=== PATIENT | female | born 1955 | race Caucasian/White ===

== ENCOUNTER 2020-11-16 20:51 | Emergency (ER) | payer MEDICARE, SELFPAY ==
[2020-11-16 20:53] VITALS: BP 182/87; PULSE 66; RESP 16; TEMP 36.3; O2SAT 99
[2020-11-16 21:32] VITALS: BP 184/81; PULSE 58; PULSE 64; RESP 15; O2SAT 100
--- NOTE | 2020-11-16 21:38 | ECG_ITS ---
Measurements Intervals [place] Rate: 61 P: 40 IN: 173 QRS: -5 QRSD: 105 T: 21 QT: 425 QTc: 429 Interpretive Statements SINUS RHYTHM DELAYED PRECORDIAL R/S TRANSITION BASELINE ARTIFACT- I, II, III, AVR, AVF BORDERLINE ECG Electronically Signed On 11-17-2020 7:08:29 ICT BUSINESS DEVELOPMENT MANAGER by Preet Goldman D.O.
[2020-11-16 21:53] LABS: Basophils Percent Auto 0.2 % (0.2-1.2); Eosinophils Absolute Auto 0.2 K/mm3 (0-0.3); Eosinophils Percent Auto 1.5 % (0-4.4); Hematocrit 40.2 % (37.0-47.0); Hemoglobin 13.8 g/dL (12.0-15.0); Immature Granulocyte Absolute 0.03 K/mm3 (0.00-0.031); Immature Granulocyte Percent A 0.3 % (0-0.5); Lymphocytes Absolute Auto 4.91 K/mm3 (0.9-3.2); Lymphocytes Percent Auto 47.3 % (18.3-44.2); Mean Corpuscular HGB Conc 34.3 g/dl (32-36); Mean Corpuscular Hemoglobin 32.1 pg (26-34); Mean Corpuscular Volume 93.5 fl (80-100); Mean Platelet Volume 9.3 fl (7.4-10.4); Monocytes Absolute Auto 0.6 K/mm3 (0.1-0.6); Neutrophils Absolute Auto 4.7 K/mm3 (1.3-6.7); Neutrophils Percent Auto 44.7 % (45.5-73.1); Platelet Count Result 222 k/mm3 (150-375); Red Cell Distribution Width 12.9 % (11.5-14.5); White Blood Count 10.4 K/mm3 (4.5-10.0)
--- NOTE | 2020-11-16 21:57 | ED.ARRPALP ---
HPI - Arrhythmia/Palpitations General Chief Complaint: Arrhythmia/Palpitations Stated Complaint: chest pain, dizzy Time Seen by Provider: 11/16/20 21:09 Source: patient Mode of arrival: ambulatory Limitations: no limitations History of Present Illness HPI narrative: A 65-year-old lady comes into the emergency department with complaints of an abnormal sensation. Patient states that she has been feeling unwell for quite some time. She notes that she went and saw her primary care doctor about this. She notes that she is dealing with some anxiety and depression. Patient was recently started on Prozac. She notes that earlier tonight she got the sensation of heaviness in her bilateral arms with tingling. She denies any numbness. Does note that it is bilateral. She denies any sensation in her legs. Patient noted that she was simply sitting still waiting at home and not thinking about anything. Related Data Home Medications Medication Instructions Recorded Confirmed atorvastatin 11/16/20 fluoxetine mg 11/16/20 propranolol PO 11/16/20 sumatriptan succinate mg PO 11/16/20 11/16/20 Allergies Allergy/AdvReac Type Severity Reaction Status Date / Time No Known Allergies Allergy Unknown Verified 11/16/20 20:57 Review of Systems Review of Systems: Narrative: CONSTITUTIONAL: Denies fever, chills, or sweats. EYES: Denies visual changes, redness, or discharge. ENT: Denies rhinorrhea, congestion, sore throat, or otalgia. CARDIOVASCULAR: Denies chest pain, palpitations, or edema. RESPIRATORY: Denies cough or dyspnea. GASTROINTESTINAL: Denies abdominal pain, nausea, vomiting, or diarrhea. GENITOURINARY: Denies dysuria or hematuria. SKIN: Denies rash or itching. MUSCULOSKELETAL: Denies back pain, joint pain, or myalgia. NEUROLOGIC: Denies headache, numbness, dizziness, or weakness. PSYCHIATRIC: Denies anxiety or depression. [facility] Social History Social History Gender identity (if verbalized by the patient): Female Exam Narrative: Exam Narrative: GENERAL: Well-appearing, well-nourished, and in no acute distress. HEAD: Normocephalic, atraumatic. EYES: PERRLA and EOMI. ENT: Nares clear, no rhinorrhea or epistaxis. Mucous membranes moist. Oropharynx without tonsillar hypertrophy exudate or other lesions. Bilateral TMs pearly woods nonbulging NECK: Supple. No adenopathy or masses. No carotid bruits or JVD CHEST: Clear to auscultation. No respiratory distress. No wheezes rales or rhonchi HEART: Regular rate and rhythm. No murmur heard. Normal peripheral pulses. ABDOMEN: Soft, nontender, nondistended, normal active bowel sounds. EXTREMITIES: Normal range of motion. No edema. SKIN: Warm, dry, no rash. NEURO: No focal deficits. Alert and oriented x3. PSYCH: Normal mood and affect. Course Reevaluation(s) Reevaluation #1: Patient had the sensation while here in the emergency department. After further history and evaluating her I do feel like she is may be having an anxiety attack. Patient did have a normal neuro exam when these sensations were happening. She will have her anxiety addressed and will be given Ativan for this. Time: 22:25 Vital Signs Vital signs: Vital Signs Temperature 36.3 C L 11/16/20 20:53 Pulse Rate 66 11/16/20 20:53 Respiratory Rate 16 11/16/20 20:53 Blood Pressure 182/87 H 11/16/20 20:53 Pulse Oximetry 99 11/16/20 20:53 Temperature 36.3 C L 11/16/20 20:53 Pulse Rate 61 11/16/20 22:28 Respiratory Rate 20 11/16/20 22:28 Blood Pressure 161/78 H 11/16/20 22:28 Pulse Oximetry 98 11/16/20 22:28 MDM - Arrhythmia/Palpitations MDM Narrative Medical decision making narrative: In brief this is a 65-year-old female who came into the emergency department tonight with an odd constellation of symptoms. In the end I feel that it is likely anxiety. Patient does admit to depression and anxiety related to stress and changes in the w
[2020-11-16 22:03] LABS: Alanine Aminotransferase 39 U/L (4-35); Albumin Level 4.2 g/dL (3.5-5.1); Alkaline Phosphatase 76 U/L (38-126); Anion Gap 6 mmol/L (8-16); Aspartate Amino Transferase 36 U/L (14-36); Bilirubin,Total 0.5 mg/dL (0.2-1.3); Blood Urea Nitrogen 15 mg/dL (7-17); Calcium 8.9 mg/dL (8.4-10.2); Carbon Dioxide 29 mmol/L (22-30); Chloride 104 mmol/L (98-107); Estimated CRCL calculation 86 ml/min; Estimated Glomerular Filt Rate > 60; Glucose 128 mg/dL (65-105); Potassium 3.8 mmol/L (3.4-5.0); Sodium 139 mmol/L (137-145)
[2020-11-16 22:15] LABS: Troponin I < 0.012 ng/mL (0.000-0.034)
[2020-11-16 22:28] VITALS: BP 161/78; PULSE 61; RESP 20; O2SAT 98
[2020-11-16] MEDS: LORazepam INJ (*CRX) 2 MG/ML VIAL 0.5 MG IV PUSH ×2 (22:33→23:28)
[2020-11-16 23:35] VITALS: BP 155/69; PULSE 60; RESP 12; O2SAT 98
== END 2020-11-16 23:35 | disposition home or self-care (01) ==
PROVIDERS: Emergency Provider Emergency Medicine; PCP Internal Medicine
DX: F41.9 Anxiety disorder, unspecified (principal)
CPT/HCPCS: 36415; 80053; 84484; 85025; 93005; 96374; 96376; 99284; J2060

== ENCOUNTER 2022-06-12 12:31 | Outpatient (CLI) | payer MEDICARE, SELFPAY ==
--- NOTE | ~2022-06-12 | CT_ITS ---
EXAMINATION: CT abdomen pelvis wo con DATE: 06/12/2022 12:53 INDICATION: Calculus of kidney. TECHNIQUE: Computed tomography (CT) of the abdomen and pelvis was performed without intravenous contr ast. Automated exposure control and iterative reconstruction technique were employed. The dose-length product was 517.19 mGy-cm. COMPARISON: CT abdomen and pelvis 07/01/2017 FINDINGS: The visualized portions of the lung bases demonstrate minimal atelectasis. No pleural effus ion. The heart size is normal. No pericardial effusion. Breast implants are noted. The liver is kamaljit l. There are changes of cholecystectomy. The spleen, pancreas, and adrenal glands are normal. There i s a 3 mm stone in right kidney. There is mild left hydronephrosis and hydroureter. There is a [address] one in distal left ureter. There is diverticulosis of the colon without evidence of diverticulitis. T he appendix is normal. There are no dilated loops of bowel. There are no pathologically enlarged lymp h nodes. There is no free intraperitoneal fluid. There is mild thoracolumbar spondylosis. IMPRESSION: 1. 4 mm stone in distal left ureter with mild left hydronephrosis and hydroureter. 2. Small nonobstructing right kidney stone. Reviewed, dictated and finalized at location A. IMPRESSION: 1. 4 mm stone in distal left ureter with mild left hydronephrosis and hydrouret er. 2. Small nonobstructing right kidney stone.
[2022-06-12 13:59] LABS: Appearance Urine Clear (Clear); Bilirubin Urine Negative (Negative); Blood Urine 2+ (Negative); Color Urine Yellow (Yellow); Glucose Urine UA Negative (Negative); Ketones Urine Negative (Negative); Leukocyte Esterase Ur Negative LEU/UL (Negative); Nitrate Urine Negative (Negative); Protein Urine Negative (Negative); Urobilinogen Urine 0.2 mg/dL (<2.0)
[2022-06-12 14:12] LABS: Bacteria Urine Trace /hpf; Mucus Urine Rare /lpf; RBC Urine 21-50 /hpf (0-2); Squamous Epithelial Cell Urine Occasional /hpf (Few); WBC Urine 0-3 /hpf
[2022-06-12 14:15] LABS: Add Urine Microscopic? YES
== END 2022-06-12 12:32 | disposition home or self-care (01) ==
PROVIDERS: PCP Internal Medicine; Visit Provider Internal Medicine
DX: N20.0 Calculus of kidney (principal); N20.1 Calculus of ureter; N13.30 Unspecified hydronephrosis; N13.4 Hydroureter
CPT/HCPCS: 74176; 81001

== ENCOUNTER 2022-06-12 20:35 | Emergency (ER) | payer MEDICARE, SELFPAY ==
--- NOTE | ~2022-06-12 | XR_ITS ---
EXAM: XR abdomen/kub 1V DATE: 06/12/2022 22:21 HISTORY: left 4mm stone, pain to LLQ since yesterday . COMPARISON: CT abdomen and pelvis, same date. FINDINGS: Multiple surgical clips in right upper quadrant. Clear lung bases. Normal bowel gas pattern . Hepatomegaly. 4 mm distal left ureteral stone. Nonobstructing right lower pole calcification not ra diographically visible. Degenerative changes in the lumbar spine. IMPRESSION: 4 mm distal left ureteral stone. Reviewed, dictated and finalized at location K.
[2022-06-12 20:37] VITALS: BP 158/94; PULSE 60; RESP 16; TEMP 36.8; O2SAT 100
[2022-06-12 21:07] LABS: Basophils Percent Auto 0.4 % (0.2-1.2); Eosinophils Absolute Auto 0.1 K/mm3 (0-0.3); Eosinophils Percent Auto 1.3 % (0-4.4); Hematocrit 39.7 % (37.0-47.0); Hemoglobin 13.5 g/dL (12.0-15.0); Immature Granulocyte Absolute 0.04 K/mm3 (0.00-0.031); Immature Granulocyte Percent A 0.4 % (0-0.5); Lymphocytes Absolute Auto 4.41 K/mm3 (0.9-3.2); Lymphocytes Percent Auto 40.3 % (18.3-44.2); Mean Corpuscular Hemoglobin 31.6 pg (26-34); Mean Platelet Volume 9.1 fl (7.4-10.4); Monocytes Absolute Auto 0.5 K/mm3 (0.1-0.6); Monocytes Percent Auto 4.8 % (2.6-8.5); Neutrophils Absolute Auto 5.8 K/mm3 (1.3-6.7); Neutrophils Percent Auto 52.8 % (45.5-73.1); Platelet Count Result 206 k/mm3 (150-375); Red Blood Count 4.27 M/mm3 (4.2-5.4); Red Cell Distribution Width 13.2 % (11.5-14.5); White Blood Count 10.9 K/mm3 (4.5-10.0)
[2022-06-12 21:19] LABS: Alanine Aminotransferase 37 U/L (6-35); Albumin Level 4.4 g/dL (3.5-5.1); Alkaline Phosphatase 75 U/L (38-126); Anion Gap 5 mmol/L (8-16); Aspartate Amino Transferase 32 U/L (14-36); Bilirubin,Total 0.7 mg/dL (0.2-1.3); Blood Urea Nitrogen 13 mg/dL (7-17); Calcium 9.3 mg/dL (8.4-10.2); Carbon Dioxide 28 mmol/L (22-30); Chloride 100 mmol/L (98-107); Estimated CRCL calculation 60 ml/min; Estimated Glomerular Filt Rate > 60; Glucose 161 mg/dL (65-110); Potassium 3.9 mmol/L (3.4-5.0); Sodium 133 mmol/L (137-145)
[2022-06-12 21:58] VITALS: BP 149/65; PULSE 60; RESP 18; O2SAT 99
[2022-06-12] MEDS: SODIUM CHLORIDE 0.9% IV 1,000 ML 999 ML IV CONT (22:09)
[2022-06-12] MEDS: KETOROLAC 30 MG/ML VIAL (*BKC) IV PUSH (22:10)
[2022-06-12 22:44] VITALS: BP 162/61; PULSE 68; RESP 16; O2SAT 99
[2022-06-12] MEDS: TAMSULOSIN HCL 0.4 MG CAPSULE PO (23:45)
--- NOTE | 2022-06-12 23:55 | ED.GENADULT ---
HPI - General Adult General Chief complaint: Urogenital-Female Stated complaint: L flank pain Time Seen by Provider: 06/12/22 21:57 History of Present Illness HPI narrative: Patient is a 66-year-old female who presents ER with left-sided abdominal pain. Began having sudden onset flank and abdominal pain yesterday. Has been diagnosed with a 4 mm stone. She has no medications at home to control her symptoms. They wax and wane in intensity and drove her to seek evaluation tonight. Last time she passed stone was many years ago. Patient was started on Cipro by her PCP. Related Data Home Medications Medication Instructions Recorded Confirmed atorvastatin 10 mg tablet 11/16/20 fluoxetine 20 mg capsule mg 11/16/20 propranolol 120 mg capsule,24 PO 11/16/20 hr,extended release sumatriptan succinate 100 mg tablet mg PO 11/16/20 11/16/20 Allergies Allergy/AdvReac Type Severity Reaction Status Date / Time No Known Allergies Allergy Unknown Verified 06/12/22 20:38 Review of Systems Review of Systems: All systems reviewed & are unremarkable except as noted in HPI and below Constitutional: Constitutional: Denies chills, Denies fatigue and Denies fever(s) ENT: Denies nasal congestion and Denies sore throat Cardiovascular: Cardiovascular: Denies chest pain, Denies rapid heart rate and Denies radiating jaw, neck or arm pain Gastrointestinal: Gastrointestinal: Reports abdominal pain, Denies diarrhea, Reports nausea and Denies vomiting Genitourinary: Genitourinary: Reports nocturia, Denies dysuria and Reports flank pain PMFSH Past Medical History Medical History (Updated 06/13/22 @ 00:03 by Rey Boyce MD) Diabetes Hypercholesterolemia Hypertension Kidney stones Surgical History Surgical History (Updated 06/13/22 @ 00:03 by Rey Boyce MD) History of cholecystectomy Social History Social History Gender identity (if verbalized by the patient): Female Exam Narrative: GENERAL: Well-appearing, well-nourished, and in no acute distress. HEAD: Normocephalic, atraumatic. CHEST: Clear to auscultation. No respiratory distress. HEART: Regular rate and rhythm. Normal peripheral pulses. ABDOMEN: Soft, nontender, nondistended. EXTREMITIES: Normal range of motion. No edema. SKIN: Warm, dry, no rash. NEURO: Alert and oriented x3. PSYCH: Normal mood and affect. Course Course Emergency Course: Patient resting comfortably. Informed of results. Discharge home. Will give urology follow-up. Also give supportive medications to help patient adequately passed on at home. Vital Signs Vital signs: Vital Signs Temperature 98.2 F 06/12/22 20:37 Pulse Rate 60 06/12/22 20:37 Respiratory Rate 16 06/12/22 20:37 Blood Pressure 158/94 H 06/12/22 20:37 Pulse Oximetry 100 06/12/22 20:37 Oxygen Delivery Room Air 06/12/22 20:37 Temperature 98.2 F 06/12/22 20:37 Pulse Rate 68 06/12/22 22:44 Respiratory Rate 16 06/12/22 22:44 Blood Pressure 162/61 H 06/12/22 22:44 Pulse Oximetry 99 06/12/22 22:44 Oxygen Delivery Room Air 06/12/22 20:37 Medical Decision Making Vital Signs Vital Signs: Vital Signs Temperature 98.2 F 06/12/22 20:37 Pulse Rate 60 06/12/22 20:37 Respiratory Rate 16 06/12/22 20:37 Blood Pressure 158/94 H 06/12/22 20:37 Pulse Oximetry 100 06/12/22 20:37 Oxygen Delivery Room Air 06/12/22 20:37 Temperature 98.2 F 06/12/22 20:37 Pulse Rate 68 06/12/22 22:44 Respiratory Rate 16 06/12/22 22:44 Blood Pressure 162/61 H 06/12/22 22:44 Pulse Oximetry 99 06/12/22 22:44 Oxygen Delivery Room Air 06/12/22 20:37 Lab Data Result diagrams: 06/12/22 20:54 06/12/22 20:54 Labs: Lab Results 06/12/22 06/12/22 Range/Units 20:54 20:54 WBC 10.9 H (4.5-10.0) K/mm3 RBC 4.27 (4.2-5.4) M/mm3 Hgb 13.5 (12.0-15.0) g/dL Hct
== END 2022-06-13 00:17 | disposition home or self-care (01) ==
PROVIDERS: Emergency Provider Emergency Medicine; PCP Internal Medicine
DX: N20.1 Calculus of ureter (principal); E11.9 Type 2 diabetes mellitus without complications; E78.00 Pure hypercholesterolemia, unspecified; I10 Essential (primary) hypertension; Z87.442 Personal history of urinary calculi
CPT/HCPCS: 36415; 74018; 74176; 80053; 81001; 85025; 96361; 96374; 99284; A9270; J1885; J7030

== ENCOUNTER → 2022-06-19 15:00 | Outpatient (CLI) | payer MEDICARE, SELFPAY ==
--- NOTE | ~2022-06-19 | XR_ITS ---
EXAM: XR abdomen/kub 1V DATE: 06/19/2022 15:22 HISTORY: Left ureteral stone follow up . COMPARISON: 06/12/2020, CT abdomen and pelvis 06/12/2022. FINDINGS: Clear lung bases. Right upper quadrant surgical clips. Normal bowel gas pattern. No organo megaly. The 4 mm distal left ureteral stone is no longer identified. Spherical calcific density over the left abdomen demonstrated to be within mesenteric fat in the prior CT and of doubtful clinical si gnificance. Regional bones and soft tissues normal for age. IMPRESSION: No radiographic evidence of urolithiasis. Reviewed, dictated and finalized at location K.
== END ==
PROVIDERS: PCP Internal Medicine; Visit Provider Nurse Practitioner Adult Health
DX: N20.1 Calculus of ureter (principal)
CPT/HCPCS: 74018

== ENCOUNTER → 2023-04-28 10:24 | Outpatient (CLI) | payer MEDICARE, SELFPAY ==
--- NOTE | ~2023-04-28 | XR_ITS ---
XR knee LT min 4V DATE: 04/28/2023 11:05 INDICATION: Injury TECHNIQUE: 4 views COMPARISON: None FINDINGS: There is tricompartment osteoarthritis, including mild particular spurring of the patellofe moral joint, slight periarticular spurring of the lateral compartment in addition to moderate loss of medial compartment joint space height and mild to moderate periarticular spurring at the medial comp artment. Superior pole patellar enthesopathy at the quadriceps tendon insertion site. No fracture or dislocation or joint effusion, periosteal reaction or bone destruction, radiopaque int ra-articular loose body or chondrocalcinosis. IMPRESSION: Tricompartment osteoarthritis, moderate and most prominent at the medial compartment Reviewed, dictated and finalized at location B. IMPRESSION: Tricompartment osteoarthritis, moderate and most prominent at the m edial compartment
== END ==
PROVIDERS: PCP Internal Medicine; Visit Provider Internal Medicine
DX: S89.92XA Unspecified injury of left lower leg, initial encounter (principal); M17.12 Unilateral primary osteoarthritis, left knee; T14.90XA Injury, unspecified, initial encounter
CPT/HCPCS: 73564

== ENCOUNTER → 2023-07-03 13:00 | Outpatient (CLI) | payer MEDICARE, SELFPAY ==
--- NOTE | ~2023-07-03 | XR_ITS ---
XR abdomen/kub 1V DATE: 07/03/2023 13:14 INDICATION: Renal stone follow-up TECHNIQUE: 2 supine AP views of the abdomen and pelvis COMPARISON: 06/19/2022 KUB FINDINGS: Multiple surgical clips overlie the right upper quadrant, likely due to cholecystectomy. No visceromegaly is evident. The psoas shadows are intact. No significant abnormal calcification incl uding any apparent urinary tract calcification is noted. There is no evidence of bowel obstruction. Osteitis pubis. IMPRESSION: No urinary tract calcification is noted Reviewed, dictated and finalized at Location A. Reviewed, dictated and finalized at location A.
== END ==
PROVIDERS: PCP Internal Medicine; Visit Provider Nurse Practitioner Adult Health
DX: N20.0 Calculus of kidney (principal)
CPT/HCPCS: 74018

== ENCOUNTER → 2023-11-28 08:11 | Outpatient (CLI) | payer MEDICARE, SELFPAY ==
--- NOTE | ~2023-11-28 | MR_ITS ---
MRI of the left knee Clinical history: Meniscal tear Technique: Coronal proton density and proton density-weighted images, sagittal proton-density and T2 fat-sat images, and axial proton-density fat-saturated images were acquired. Findings: Anterior and posterior cruciate ligaments are intact. Medial collateral ligament and the la teral collateral ligament complex are intact. Popliteus tendon is intact. Probable free edge tear of the posterior horn of the medial meniscus. No lateral meniscal tear seen. There is diffuse moderate chondral thinning of the medial femoral condyle. There is mild chondral thi nning of the lateral femoral condyle. There is extensive moderate to high-grade chondral malacia weiner lla, with additional high-grade chondromalacia over the lateral femoral trochlea. There are small tri compartmental osteophytes. Extensor mechanism is intact. No joint effusion or Young's cyst evident. There is a large complex flu id collection in the prepatellar region, measuring 7.1 x 3.2 x 10.2 cm in extent. Impression: 7.1 x 3.2 x 10.27 cm complex fluid collection superficial to the patella/extensor mechanism. This cou ld reflect large complex prepatellar bursitis or possibly evolving hematoma. Correlate clinically and with any relevant history. Probable subtle free edge tear of the posterior horn of the medial meniscus. Degenerative change, worse in the patellofemoral compartment, as detailed above. Reviewed, dictated and finalized at [facility]. HER REPAIRER Impression: 7.1 x 3.2 x 10.27 cm complex fluid collection superficial to the patella/extens or mechanism. This could reflect large complex prepatellar bursitis or possibly evolving hematoma. Correlate clinically and with any relevant history. Probable subtle free edge tear of the posterior horn of the medial meniscus. Degenerative change, worse in the patellofemoral compartment, as detailed above .
== END ==
PROVIDERS: PCP Orthopaedic Surgery; Visit Provider Orthopaedic Surgery
DX: S83.242A Other tear of medial meniscus, current injury, left knee, initial encounter (principal); M17.12 Unilateral primary osteoarthritis, left knee; R22.42 Localized swelling, mass and lump, left lower limb; X58.XXXA Exposure to other specified factors, initial encounter
CPT/HCPCS: 73721

== ENCOUNTER 2024-09-25 12:51 | Emergency (ER) | payer MEDICARE, SELFPAY ==
--- NOTE | ~2024-09-25 | CT_ITS ---
EXAMINATION: CT facial & cervical spine wo DATE: 09/25/2024 14:36 INDICATION: fall, HI, nasal injury TECHNIQUE: Computed tomography (CT) of the maxillofacial region and cervical spine was performed with out intravenous contrast. Automated exposure control and iterative reconstruction technique were empl oyed. The dose-length product was 541.19 mGy-cm. COMPARISON: None FINDINGS: CERVICAL: Vertebral Body Alignment: Intact. Craniocervical and atlantoaxial alignment: Moderate degenerative change. Alignment intact. Osseous structures/fracture: No evidence of a lytic or blastic process in the visualized spine. No e vidence of acute fracture. Cervical soft tissues: The paraspinal soft tissues planes are maintained. Mild septal thickening and scattered patchy groundglass opacities. Degenerative changes: Degenerative changes, without severe neural foraminal or central canal narrowin g. Large posteriorly directed marginal osteophyte at C5-6, causing mild central canal stenosis. FACE: Soft Tissues: Subcutaneous gas just deep to the nose. Facial bones: No acute fracture. No lytic or blastic process. Eyes: The globes are intact. The soft tissue planes of the orbits are maintained. Paranasal Sinuses: The visualized aerated spaces are clear. Foreign Bodies: No radiopaque foreign bodies. Other Findings: None. IMPRESSION: No acute fracture or traumatic malalignment in the cervical spine. No acute facial bone fracture. Pos sible soft tissue laceration inferior to the nose. Mild pulmonary edema/mosaic attenuation. Reviewed, dictated and finalized at location K. R ORAL SURGEON IMPRESSION: No acute fracture or traumatic malalignment in the cervical spine. No acute fac ial bone fracture. Possible soft tissue laceration inferior to the nose. Mild p ulmonary edema/mosaic attenuation.
--- NOTE | ~2024-09-25 | CT_ITS ---
EXAMINATION: CT brain wo con DATE: 09/25/2024 14:36 INDICATION: fall, HI . TECHNIQUE: Computed tomography (CT) of the head was performed without intravenous contrast. The mA wa s adjusted according to patient size. Iterative reconstruction technique was employed. The dose-lengt h product was 605.33 mGy-cm. COMPARISON: None. FINDINGS: No acute intracranial hemorrhage or extra-axial fluid collection. No hydrocephalus, mass, or herniation. No acute ischemic infarct. Unremarkable dural venous sinus attenuation. No acute osseous abnormality. The aerated spaces are clear. Moderate atrophy and chronic white matter change. Atherosclerotic intracranial calcification. Bilater al basal ganglia calcification. IMPRESSION: No acute intracranial process. Reviewed, dictated and finalized at location K. ER'S HELPER
[2024-09-25 13:30] VITALS: BP 147/69; PULSE 70; RESP 16; TEMP 36.9; O2SAT 97
--- NOTE | 2024-09-25 14:46 | ED.FALL ---
HPI - Fall General Chief Complaint: Fall <Nuria Lizarraga PA-C - Last Filed: 09/25/24 17:27> Stated Complaint: fall <Nuria Lizarraga PA-C - Last Filed: 09/25/24 17:27> Time Seen by Provider: 09/25/24 14:00 <Nuria Lizarraga PA-C - Last Filed: 09/25/24 17:27> Source: patient <CONRAD Abraham Last Filed: 09/25/24 17:27> Mode of arrival: ambulatory <Nuria Lizarraga PA-C - Last Filed: 09/25/24 17:27> Limitations: no limitations <Nuria Lizarraga PA-C - Last Filed: 09/25/24 17:27> History of Present Illness HPI Narrative: Patient is a 69-year-old female who presents the ED with report of a fall/head injury. Patient reports she tripped and fell at home and hit her face/ nose against the edge/corner of a cabinet. She sustained a laceration to the tip of her nose and of left nare. Also sustained superficial laceration to upper lip. Denied LOC. Denies any other areas of pain. Denies dizziness, lightheadedness, vision changes, numbness. Tetanus unknown. Patient is not on any anticoagulation. <Nuria Lizarraga PA-C - Last Filed: 09/25/24 17:27> Related Data Home Medications: Home Medications ?Medication ?Instructions ?Recorded ?Confirmed ?Last Taken ?Type propranolol 120 mg capsule,24 120 mg PO DAILY 11/16/20 12/02/23 Unknown History hr,extended release sumatriptan succinate 100 mg tablet 100 mg PO PRN PRN Migraine Headache 11/16/20 12/02/23 Unknown History lorazepam 1 mg tablet 1 mg PO PRN PRN Anxiety 08/29/22 12/02/23 Unknown History metformin 500 mg tablet,extended 1,000 mg PO HS 08/29/22 12/02/23 Unknown History release 24 hr amlodipine 2.5 mg tablet 2.5 mg PO DAILY 11/18/23 12/02/23 Unknown History atorvastatin 10 mg tablet 10 mg PO DAILY 11/18/23 12/02/23 Unknown History <Nuria Lizarraga PA-C - Last Filed: 09/25/24 17:27> Allergies/Adverse Reactions: Allergies Allergy/AdvReac Type Severity Reaction Status Date / Time No Known Allergies Allergy Unknown Verified 09/25/24 12:53 <Nuria Lizarraga PA-C - Last Filed: 09/25/24 17:27> Review of Systems Review of Systems: All systems reviewed & are unremarkable except as noted in HPI. <Nuria Lizarraga PA-C - Last Filed: 09/25/24 17:27> All systems reviewed & are unremarkable except as noted in HPI and below <Nuria Lizarraga PA-C - Last Filed: 09/25/24 17:27> PMFSH Past Medical History Medical History: Medical History Kidney stones Hypercholesterolemia Diabetes Hypertension <Nuria Lizarraga PA-C - Last Filed: 09/25/24 17:27> Surgical History Surgical History: Surgical History History of cholecystectomy <Nuria Lizarraga PA-C - Last Filed: 09/25/24 17:27> Social History Social History: Social History Smoking status: Never smoker Alcohol intake: never Substance use: never Current Housing: Decline to Answer Concerned About Future Housing: Decline to Answer Difficulty Paying Gas/Electric Bills: Decline to Answer Difficulty Paying for Meds: Decline to Answer Currently Unemployed: Decline to Answer Education: Decline to Answer Difficulty w/ Childcare or Family Care: Decline to Answer Living arrangements: with family Occupation/Education: retired Gender identity (if verbalized by the patient): Female Spiritual care concerns: No <Nuria Lizarraga PA-C - Last Filed: 09/25/24 17:27> Exam Narrative: GENERAL: Mildly uncomfortable appearing, obese with BMI of 37.8, non-toxic, in no acute distress. HEAD: Normocephalic, atraumatic. EYES: PERRL/EOMI, conjunctiva clear ENT: Curvilinear irregular shaped laceration to tip of nose extending to L medial/inferior nare/vestibule. Tip of nose does flap open with distal septum, some active bleeding along septum. There is exposed cartilage present. Significant focal TTP, no appreciable septal hematoma. Superficial laceration to L philtrum. No active bleeding. RESPIRATORY: Airway patent, respirations nonlabored. Clear to auscultation bilaterally, no rales, rhonchi, wheezing. CARDIOVASCULAR: Regular rate and rhythm MUSCULOSKELETAL: Moves all extremities. No gross deformities. SKIN: Warm, dry, normal color. NEURO: A&O X3. Speech clear. Cranial nerves II-XII grossly intact. Steady gait. No ataxic movements. PSYCHIATRIC: Appropriate mood and affect. Normal interaction. <Nuria Lizarraga PA-C - Last Filed: 09/25/24 17:27> Course PRESS ROOM SUPERVISOR/PA Physician Supervision For this patient encounter, I reviewed the PRESS ROOM SUPERVISOR or PA documentation, treatment plan, and medical decision making; and I had [id number]-pm-[id number] time with this patient. <Robbie Herbert MD - Last Filed: 09/25/24 16:17> Vital Signs Vital signs: Vital Signs Temperature 98.5 F 09/25/24 13:30 Pulse Rate 70 09/25/24 13:30 Respiratory Rate 16 09/25/24 13:30 Blood Pressure 147/69 H 09/25/24 13:30 Pulse Oximetry 97 09/25/24 13:30 Temperature 98.4 F 09/25/24 16:17 Pulse Rate 68 09/25/24 16:17 Respiratory Rate 18 09/25/24 16:17 Blood Pressure 145/67 H 09/25/24 16:17 Pulse Oximetry 96 09/25/24 16:17 <Nuria Lizarraga PA-C - Last Filed: 09/25/24 17:27> Vital Signs Temperature 98.5 F 09/25/24 13:30 Pulse Rate 70 09/25/24 13:30 Respiratory Rate 16 09/25/24 13:30 Blood Pressure 147/69 H 09/25/24 13:30 Pulse Oximetry 97 09/25/24 13:30 Temperature 98.4 F 09/25/24 16:17 Pulse Rate 68 09/25/24 16:17 Respiratory Rate 18 09/25/24 16:17 Blood Pressure 145/67 H 09/25/24 16:17 Pulse Oximetry 96 09/25/24 16:17 <Robbie Herbert MD - Last Filed: 09/25/24 16:17> MDM - Fall MDM Narrative Medical decision making narrative: Patient presented to ED with nasal injury from a ground level fall, head injury. No LOC. No prodromal symptoms prior to fall. Patient with complex laceration to tip of nose flapping into the left nare with exposed cartilage/septum. CT brain, cervical spine, facial bones without evidence of acute fracture. Does show soft tissue deformity to nose. No evidence of septal hematoma on exam. Tetanus updated in the ED. Patient given pain medication. Due to complex nature of nasal laceration with exposed cartilage, will need plastics repair. Unfortunately we do not have plastics here today. I did discuss case with Dr. Conde, ENT, recommended evaluation by plastics for reconstruction. Discussed case with Dr. Meyer, EDP @ [facility], accepted patient for transfer to [place] [facility]. Patient in agreement with plan and need for transfer. Will go by private vehicle. Advised to go straight to [place] ED, do not make any stops, do not eat/drink. Patient voiced understanding. <Nuria Lizararga PA-C - Last Filed: 09/25/24 17:27> Medical Records Attestation: I reviewed the patient's medical records. <Nuria Lizarraga PA-C - Last Filed: 09/25/24 17:27> Imaging Data Attestation: I personally reviewed and interpreted this imaging study as follows: <Nuria Lizarraga PA-C - Last Filed: 09/25/24 17:27> Radiologist's impression: ITS Impressions Head CT 09/25/24 14:40 IMPRESSION: No acute intracranial process. Head/Cervical Spine/Facial Bones CT 09/25/24 14:42 IMPRESSION: No acute fracture or traumatic malalignment in the cervical spine. No acute facial bone fracture. Possible soft tissue laceration inferior to the nose. Mild pulmonary edema/mosaic attenuation. <Nuria Lizarraga PA-C - Last Filed: 09/25/24 17:27> Discharge Plan Discharge Clinical Impression: Fall from ground level Complex laceration of nose Qualifiers: Encounter type: initial encounter Qualified Code(s): S01.21XA - Laceration without foreign body of nose, initial encounter <Nuria Lizarraga PA-C - Last Filed: 09/25/24 17:27> Patient Disposition: Acute Care Hospital <CONRAD Abraham Last Filed: 09/25/24 17:27> Condition: Stable <Nuria Lizarraga PA-C - Last Filed: 09/25/24 17:27> Instructions: Laceration (ED) <CONRAD Abraham Last Filed: 09/25/24 17:27> Additional Instructions: GO STRAIGHT TO [facility]. THEY ARE AWARE YOU ARE COMING. DO NOT EAT OR DRINK. <CONRAD Abraham Last Filed: 09/25/24 17:27> Patient Language: Guamanian <Nuria Lizarraga PA-C - Last Filed: 09/25/24 17:27> Prescriptions: No Action amlodipine 2.5 mg tablet 2.5 mg PO DAILY atorvastatin 10 mg tablet 10 mg PO DAILY sumatriptan succinate 100 mg tablet 100 mg PO PRN PRN (Reason: Migraine Headache) propranolol 120 mg capsule,extended release 24 hr 120 mg PO DAILY lorazepam 1 mg tablet 1 mg PO PRN PRN (Reason: Anxiety) metformin 500 mg tablet extended release 24 hr 1,000 mg PO HS <Nuria Lizarraga PA-C - Last Filed: 09/25/24 17:27> Follow-up/Referrals: Kraig,MD Valeriano [Primary Care Provider] - <Nuria Lizarraga PA-C - Last Filed: 09/25/24 17:27> Time of Disposition: 16:57 <Nuria Lizarraga PA-C - Last Filed: 09/25/24 17:27> 16:57 <Robbie Herbert MD - Last Filed: 09/25/24 16:17>
[2024-09-25] MEDS: ACETAMINOPHEN 500 MG TABLET 1000 MG PO (15:36)
[2024-09-25] MEDS: oxyCODONE HCL (*CRX) 5 MG TAB IR PO (15:37)
[2024-09-25] MEDS: TETANUS,DIPHTHERIA,AC PERTUSSIS ADULT (0.5 ML) BOOSTRIX IM (15:38)
[2024-09-25 16:17] VITALS: BP 145/67; PULSE 68; RESP 18; TEMP 36.9; O2SAT 96
--- OUTSIDE RECORDS SUMMARY | 2024-09-29 13:02 | XMS_ITS | Encounter Summary ---
Author Organization [facility] Address [address] [place] [address] Care Team Providers Care Grinder Tender Name Role Phone Tiago Weinberg MD Primary Care Provider Reason for Visit * Reason Onset Date Comments Refill Request 12/16/2013 Encounter Details Date Type Department Care Team (Late st Contact Info) Description 12/16/[address] [facility] - Family Medicine [address] [place] [phone] Jelly Heart APRN-GERARDO RETIRED Refill Request Social History Tobacco Use Types Packs/Day Years Used Date Smoking Tobacco: Never Alcohol Use Standard Drinks/Week Comments No 0 (1 standard drink = 0.6 oz pur e alcohol) Sex and Gender Information Value Date Recorded Sex Assigned at Not on file Gender Identity Not on file Sexual Orientation Not on file documented as of this encounter Plan of Treatment Not on file documented as of this encounter Visit Diagnoses Not on filedocumented in this encounter Care Teams Grinder Tender Relationship Specialty Start Date End Date Tiago Weinberg MD [address] [address] PCP - General Internal Medicine 06/01/13 documented as of this encounter
--- OUTSIDE RECORDS SUMMARY | 2024-09-29 13:02 | XMS_ITS | Encounter Summary ---
Author Organization [facility] Address [address] [place] [address] Care Team Providers Care Bank Cashier Name Role Phone Tiago Weinberg MD Primary Care Provider Jelly Heart Unavailable Unavailable Reason for Visit * Reason Onset Date Comments MEDICATION REFILL 06/07/2015 Encounter Details Date Type Department Care Team (Late st Contact Info) Description 06/07/2015 Telephone [facility] - Family Medicine [address] [place] [phone] Jelly Heart APRN-CNP RETIRED MEDICATION REFILL Social History Tobacco Use Types Packs/Day Years Used Date Smoking Tobacco: Never Smokeless Tobacco: Never Alcohol Use Standard Drinks/Week Comments No 0 (1 standard drink = 0.6 oz pur e alcohol) Sex and Gender Information Value Date Recorded Sex Assigned at Not on file Gender Identity Not on file Sexual Orientation Not on file documented as of this encounter Miscellaneous Notes * Telephone Encounter - Ines Colón RN - 06/07/2015 2:45 PM CDT Phoned script into pharmacy. * Telephone Encounter - Jelly Heart APRN-CNP - 06/07/2015 1:20 PM CDT Okay for refill x 3 months. * Telephone Encounter - Ines Colón, RN - 06/07/2015 12:34 PM CDT Pt is needing refill on testosterone cream. Is aware her annual visit is 07/13. Will be in [place] last week of Jun while daughter having second child. Will call and schedule visit upon return. She uses [facility] in [place]. documented in this encounter Plan of Treatment Not on file documented as of this encounter Visit Diagnoses Not on filedocumented in this encounter Care Teams Bank Cashier Relationship Specialty Start Date End Date Tiago Weinberg MD [address] [phone] PCP - General Internal Medicine 06/01/13 Jelly Heart APRN-GERARDO [address] [phone] Nurse Practitioner 07/06/14 documented as of this encounter
--- OUTSIDE RECORDS SUMMARY | 2024-09-29 13:02 | XMS_ITS | Encounter Summary ---
Author Organization [facility] Healthcare Address [address] [place] [address] Care Team Providers Care Color Dipper Name Role Phone Unavailable Primary Care Provider Unavailabl e Encounter Details Date Type Department Care Team (Latest Contact Info) Description 04/29/2016 11:22 AM CDT Hospital Encounter [facility] [place] [address] [address] Encounter for screening mammogram for malignant neoplasm of breast Social History Tobacco Use Types Packs/Day Years Used Date Smoking Tobacco: Never Assessed Comments Unknown Sex and Gender Information Value Date Recorded Sex Assigned at Not on file Legal 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 us Historical Provider MD TANG XR PROCEDURES Final R esult * Screening Mammogram Bilateral W Ayaz (04/29/2016 11:26 AM CDT) Anatomical Region Laterality Modality Breast Bilateral Mammography 04/29/2016 11:2 6 AM CDT Impressions 05/07/2016 10:33 AM CDT BI-RAD 0 ??ADDITIONAL IMAGING EVALUATION NEEDED 1. ??The asymmetry in the superior left breast, posterior depth seen on the MLO implant displaced view only is indeterminate. ??Further evaluation with diagnostic mammography and possible diagnostic ultrasound is recommended. 2. ??No mammographic evidence of malignancy in the right breast. A 1 year screening right mammogram is recommended. The patient has been or will be contacted. ?? Rey Cabrera M.D. ab/:05/07/2016 10:33:03 ?? Production Crew Supervisor: Sarah Kelsey)(Declan), [facility] letter sent: Additional Imaging ?? Reading location: BI-RADS: 0 Additional Imaging Evaluation Needed [EOD] Narrative 05/07/2016 10:33 AM CDT - MG BILATERAL DIGITAL SCREENING MAMMOGRAM 3D/2D WITH CAD WITH MEDIOLATERAL OBLIQUE CRANIOCAUDAL: 04/29/2016 The study was acquired using full field digital technology and interpreted from soft copy. ?? Current study was also evaluated with R2 CAD. 2D digital mammographic views, as well as 3D digital tomosynthesis were performed in the CC and MLO projections. CLINICAL: Routine mammogram. Denies any problems today. No personal history of breast cancer. No family history of breast cancer. ?? COMPARISONS: Comparison is made to exams dated: ??07/20/2014 mammogram, 07/13/2014 mammogram, and 06/04/2013 mammogram - [facility]. ?? BREAST TISSUE: There are scattered areas of fibroglandular density. ?? FINDINGS: There are bilateral subglandular silicone breast implants. ??There is an asymmetry in the superior left breast, posterior depth seen on the MLO implant displaced view only. ??There are benign intramammary lymph nodes in the bilateral breasts. ??There are no other suspicious masses, suspicious calcifications, or other suspicious findings in either breast. Procedure Note Provider, MD Yosef - 02/27/2021 - MG BILATERAL DIGITAL SCREENING MAMMOGRAM 3D/2D WITH CAD WITH MEDIOLATERALOBLIQUE CRANIOCAUDAL: 04/29/2016 The study was acquired using full field digital technology and interpretedfrom soft copy. Current study was also evaluated with R2 CAD. 2D digital mammographic views, as well as 3D digital tomosynthesis were performed in the CC and MLO projections. CLINICAL: Routine mammogram. Denies any problems today. No personalhistory of breast cancer. No family history of breast cancer. COMPARISONS: Comparison is made to exams dated: 07/20/2014 mammogram,07/13/2014 mammogram, and 06/04/2013 mammogram - [facility]. BREAST TISSUE: There are scattered areas of fibroglandular density. FINDINGS: There are bilateral subglandular silicone breast implants.There is an asymmetry in the superior left breast, posterior depth seen on the MLO implant displaced view only. There are benign intramammary lymph nodes inthe bilateral breasts. There are no other suspicious masses, suspicious calcifications, or other suspicious findings in either breast. IMPRESSION: BI-RAD 0 ADDITIONAL IMAGING EVALUATION NEEDED 1. The asymmetry in the superior left breast, posterior depth seen on theMLO implant displaced view only is indeterminate. Further evaluation with diagnostic mammography and possible diagnostic ultrasound isrecommended. 2. No mammographic evidence of malignancy in the right breast. A 1 year screening right mammogram is recommended. The patient has been or will be contacted. Rey Cabrera M.D. ab/:05/07/2016 10:33:03 Production Crew Supervisor: Sarah Kelsey)(Declan), [facility] letter sent: Additional Imaging Reading location: BI-RADS: 0 Additional Imaging Evaluation Needed [EOD] Jazmine BROWNE IMG MAMMO PROCEDURES Final Result documented in this encounter Visit Diagnoses Diagnosis Encounter for screening mammogram for malignant neoplasm of breast documented in this encounter
--- OUTSIDE RECORDS SUMMARY | 2024-09-29 13:02 | XMS_ITS | Encounter Summary ---
Author Organization [facility] Address [address] [place] [address] Care Team Providers Care Firewall Security Engineer Name Role Phone Tiago Weinberg MD Primary Care Provider Reason for Referral * Radiology Services - Closed Specialty Diagnoses / Procedures Referred By Contac t Referred To Contact Mammography Diagnoses Other screening mammogram Procedures RAKEL SCREENING DIGITAL SPIKEAT Jelly Heart APRN-CNP RETIRED Referral ID Status Reason Start Date Expiration Date Visits Re quested Visits Authorized [id number] Closed 06/04/2013 12/01/2013 1 1 Reason for Visit * Radiology Services - Closed Specialty Diagnoses / Procedures Referred By Osman elam Referred To Contact Mammography Diagnoses Other screening mammogram Procedures RAKEL SCREENING DIGITAL SPIKEAT Jelly Heart APRN-CNP RETIRED Referral ID Status Reason Start Date Expiration Date Visits Re quested Visits Authorized [id number] Closed 06/04/2013 12/01/2013 1 1 Encounter Details Date Type Department Care Team (Latest Contact Info) Description 06/04/2013 11:16 AM CDT - 06/04/2013 11:59 PM CDT Hospital Encounter [facility] Breast Care [address] [place] [phone] Jelly Heart APRN-CNP RETIRED Discharge Disposition: Home or Self Care Social History Tobacco Use Types Packs/Day Years Used Date Smoking Tobacco: Never Alcohol Use Standard Drinks/Week Comments No 0 (1 standard drink = 0.6 oz pur e alcohol) Sex and Gender Information Value Date Recorded Sex Assigned at Not on file Gender Identity Not on file Sexual Orientation Not on file documented as of this encounter Medications at Time of Discharge Medication Sig Dispensed Refills Start Date End Date propranolol CR 24hr (INDERAL LA) 120 MG capsule Take 120 mg by mouth once daily. SUMAtriptan (IMITREX) 50 MG tablet Take 50 mg by mouth once as needed. venlafaxine XR 24hr (EFFEXOR XR) 37.5 MG capsule Take 1 Cap by mouth daily with breakfast for 30 days. 30 Cap 5 06/04/2013 07/04/2013 documented as of this encounter Progress Notes * Marimar Roberts RN - 06/08/2013 2:00 PM CDTQuick Note: Pt aware documented in this encounter Plan of Treatment Not on file documented as of this encounter Procedures Procedure Name Priority Date/Time Associated Diagnosis Comments MAMMO BILAT SCREENING Routine 06/04/2013 11:25 AM CDT Other screening mammogram documented in this encounter Results * RAKEL SCREENING DIGITAL BILAT (06/04/2013 11:25 AM CDT) Anatomical Region Laterality Modality Breast Bilateral Mammography 06/04/2013 3:48 PM CDT Impressions 06/04/2013 7:23 PM CDT BI-RADS category 2 - recommendation routine annual screening. A) ??A negative report should not delay a biopsy if a dominant or clinically suspicious mass is present. B) Adenosis and dense breasts may obscure an underlying neoplasm. C) Study interpreted with computer aided detection. MQSA BI-RADS Categories: Category 0 - needs additional imaging evaluation. Category 1 - negative. Category 2 - benign findings. Category 3 - probably benign findings, but short interval follow-up is ? recommended. Category 4 - suspicious abnormality and biopsy should be considered ? though the lesion may well be benign. Category 5 - highly suggestive of malignancy and appropriate action ? should be taken. ? Category 6 - known biopsy proven cancer. Narrative 06/04/2013 7:23 PM CDT Digital bilateral screening mammogram with CAD. 06/04/2013 Four views of each breast with and without implant views are submitted. Comparison April 08, 2012 and December 28, 2010. FINDINGS: No suspicious masses or abnormal calcifications are identified. No change has occurred since prior examinations. Small area of glandular asymmetry subareolar tissues right breast stable dating back to 2008. Procedure Note Vinh Steven MD - 06/04/2013 Digital bilateral screening mammogram with CAD. 06/04/2013 Four views of each breast with and without implant views are submitted. Comparison April 08, 2012 and December 28, 2010. FINDINGS: No suspicious masses or abnormal calcifications are identified. No change has occurred since prior examinations. Small area of glandular asymmetry subareolar tissues right breast stable dating back to 2008. IMPRESSION BI-RADS category 2 - recommendation routine annual screening. A) A negative report should not delay a biopsy if a dominant or clinically suspicious mass is present. B) Adenosis and dense breasts may obscure an underlying neoplasm. C) Study interpreted with computer aided detection. MQSA BI-RADS Categories: Category 0 - needs additional imaging evaluation. Category 1 - negative. Category 2 - benign findings. Category 3 - probably benign findings, but short interval follow-up is recommended. Category 4 - suspicious abnormality and biopsy should be considered though the lesion may well be benign. Category 5 - highly suggestive of malignancy and appropriate action should be taken. Category 6 - known biopsy proven cancer. Jelly Sly INTELLIGENCE INTERN-CARROTING MACHINE OPERATOR MAMMO ORDERABLES documented in this encounter Visit Diagnoses Diagnosis Other screening mammogram documented in this encounter Care Teams Firewall Security Engineer Relationship Specialty Start Date End Date Tiago Weinberg MD [address] [address] PCP - General Internal Medicine 06/01/13 documented as of this encounter
--- OUTSIDE RECORDS SUMMARY | 2024-09-29 13:02 | XMS_ITS | Encounter Summary ---
Author Organization [facility] Healthcare Address [address] [place] [address] Care Team Providers Care Polytechnic Registrar Name Role Phone Unavailable Primary Care Provider Unavailabl e Encounter Details Date Type Department Care Team (Latest Contact Info) Description 05/14/2016 2:16 PM CDT Hospital Encounter [facility] [place] [address] [phone] Other abnormal and inconclusive findings on diagnostic imaging of breast Social History Tobacco Use Types Packs/Day Years Used Date Smoking Tobacco: Never Assessed Comments Unknown Sex and Gender Information Value Date Recorded Sex Assigned at Not on file Legal Sex Female 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 Gender Identity Not on file Sexual Orientation Not on file documented as of this encounter Plan of Treatment Not on file documented as of this encounter Procedures Procedure Name Priority Date/Time Associated Diagnosis Comments US BREAST LEFT COMPLETE Routine 05/14/2016 2:44 PM CDT DIAGNOSTIC MAMMOGRAM 2D LEFT Routine 05/14/2016 2:18 PM CDT GENERAL RADIOLOGY REPORT 05/14/2016 12:00 AM CDT GENERAL RADIOLOGY REPORT 05/14/2016 12:00 AM CDT documented in this encounter Results * US Breast Left Complete (05/14/2016 2:44 PM CDT) Anatomical Region Laterality Modality Breast Left Ultrasound 05/14/2016 2:44 PM CDT Impressions 05/14/2016 3:43 PM CDT BIRADS 2:BENIGN Electronically signed by: Rey Cabrera M.D. ?? ab/:05/14/2016 15:42:28 ?? Interior Assemblies Installer: Laine Peters, [facility] Reading location: Ultrasound BI-RADS: 2 Benign [EOD] Narrative 05/14/2016 3:43 PM CDT - US ULTRASOUND OF LEFT BREAST: 05/14/2016 Please refer to the diagnostic mammography report of the same date. ??The reports are combined. Procedure Note Provider, MD Yosef - 02/27/2021 - US ULTRASOUND OF LEFT BREAST: 05/14/2016 Please refer to the diagnostic mammography report of the same date. The reports are combined. IMPRESSION: BIRADS 2:BENIGN Electronically signed by: Rey Cabrera M.D. ab/:05/14/2016 15:42:28 Interior Assemblies Installer: Laine Peters, [facility] Reading location: Ultrasound BI-RADS: 2 Benign [EOD] us Jazmine BROWNE IMG MAMMO PROCEDURES Final Result * Diagnostic Mammogram 2D Left (05/14/2016 2:18 PM CDT) Anatomical Region Laterality Modality Breast Left Mammography 05/14/2016 2:18 PM CDT Impressions 05/14/2016 3:39 PM CDT BI-RAD 2 ??BENIGN 1. ??The mass in the left breast at 2 o'clock, 7 cm from the nipple is a benign intramammary lymph node. 2. ??No mammographic or sonographic evidence of malignancy. ??A 1 year screening mammogram is recommended. I discussed the above findings and impression with the patient at the time of the examination. Rey Cabrera M.D. ab/:05/14/2016 15:38:48 ?? Interior Assemblies Installer: Jennifer Kelsey)(Declan), [facility] letter sent: MG & US Done-Normal ?? Reading location: BI-RADS: 2 Benign [EOD] Narrative 05/14/2016 3:39 PM CDT - MG UNILATERAL LEFT DIGITAL DIAGNOSTIC MAMMOGRAM WITH CAD WITH MEDIOLATERAL OBLIQUE CRANIOCAUDAL: 05/14/2016 The study was acquired using full field digital technology and interpreted from soft copy. ?? Current study was also evaluated with R2 CAD. CLINICAL: 60-year-old female recalled from screening mammography for an asymmetry in the superior left breast. ?? COMPARISONS: Comparison is made to exams dated: ??04/29/2016 mammogram - [facility], 07/20/2014 mammogram, 07/13/2014 mammogram, and 06/04/2013 mammogram - [facility]. ?? BREAST TISSUE: There are scattered areas of fibroglandular density. ?? MAMMOGRAPHIC FINDINGS: There is a 7 mm mass in the left breast at 2 o'clock. ?? There are no other suspicious masses, suspicious calcifications, or other suspicious findings in the left breast. ??Targeted ultrasound will be performed. ULTRASOUND FINDINGS: Targeted ultrasound of the left breast at 2 o'clock, 7 cm from the nipple demonstrates a 0.8 x 0.4 x 0.5 cm benign intramammary lymph node with a thin cortex and normal echogenic hilum. ??This corresponds to the mass visualized on mammography. Procedure Note Provider, MD Yosef - 02/27/2021 - MG UNILATERAL LEFT DIGITAL DIAGNOSTIC MAMMOGRAM WITH CAD WITH MEDIOLATERALOBLIQUE CRANIOCAUDAL: 05/14/2016 The study was acquired using full field digital technology and interpretedfrom soft copy. Current study was also evaluated with R2 CAD. CLINICAL: 60-year-old female recalled from screening mammography for an asymmetry in the superior left breast. COMPARISONS: Comparison is made to exams dated: 04/29/2016 mammogram -[facility], 07/20/2014 mammogram, 07/13/2014 mammogram, and 06/04/2013mammogram - [facility]. BREAST TISSUE: There are scattered areas of fibroglandular density. MAMMOGRAPHIC FINDINGS: There is a 7 mm mass in the left breast at 2o'clock. There are no other suspicious masses, suspicious calcifications, or other suspicious findings in the left breast. Targeted ultrasound will beperformed. ULTRASOUND FINDINGS: Targeted ultrasound of the left breast at 2 o'clock,7 cm from the nipple demonstrates a 0.8 x 0.4 x 0.5 cm benign intramammarylymph node with a thin cortex and normal echogenic hilum. This corresponds tothe mass visualized on mammography. IMPRESSION: BI-RAD 2 BENIGN 1. The mass in the left breast at 2 o'clock, 7 cm from the nipple is abenign intramammary lymph node. 2. No mammographic or sonographic evidence of malignancy. A 1 yearscreening mammogram is recommended. I discussed the above findings and impression with the patient at the timeof the examination. Rey Cabrera M.D. ab/:05/14/2016 15:38:48 Interior Assemblies Installer: Jennifer ONEIL (R)(M), [facility] letter sent: MG & US Done-Normal Reading location: BI-RADS: 2 Benign [EOD] us Jazmine BROWNE IMG MAMMO PROCEDURES Final Result * GENERAL RADIOLOGY REPORT (05/14/2016 12:00 AM CDT) Anatomical Region Laterality Modality Radiographic Renay ging Narrative 05/14/2016 12:00 AM CDT Ordered by an unspecified provider. Historical Provider IMG XR PROCEDURES Final R esult * GENERAL RADIOLOGY REPORT (05/14/2016 12:00 AM CDT) Anatomical Region Laterality Modality Radiographic Renay ging Narrative 05/14/2016 12:00 AM CDT Ordered by an unspecified provider. Historical Provider IMG XR PROCEDURES Final R esult documented in this encounter Visit Diagnoses Diagnosis Other abnormal and inconclusive findings on diagnostic imaging of breast documented in this encounter
--- OUTSIDE RECORDS SUMMARY | 2024-09-29 13:02 | XMS_ITS | Encounter Summary ---
Author Organization [facility] Address [address] [facility] [place] [address] Care Team Providers Care Multiple Wire Sawyer Name Role Phone Tiago Weinberg MD Primary Care Provider Jelly Heart APRN-WAREHOUSE ADMINISTRATIVE ASSISTANT Unavailable Unavailable Reason for Referral * Radiology Services - Closed Specialty Diagnoses / Procedures Referred By Osman elam Referred To Contact Mammography Diagnoses Other screening mammogram Procedures RAKEL SCREENING IMPLANTS Tiago Blanco MD [address] [address] Referral ID Status Reason Start Date Expiration Date Visits Re quested Visits Authorized [id number] Closed 07/13/2014 01/09/2015 1 1 Reason for Visit * Radiology Services - Closed Specialty Diagnoses / Procedures Referred By Osman elam Referred To Contact Mammography Diagnoses Other screening mammogram Procedures RAKEL SCREENING IMPLANTS Tiago Blanco MD [address] [address] Referral ID Status Reason Start Date Expiration Date Visits Re quested Visits Authorized [id number] Closed 07/13/2014 01/09/2015 1 1 Encounter Details Date Type Department Care Team (Latest Contact Info) Description 07/13/2014 1:13 PM CDT - 07/13/2014 11:59 PM CDT Hospital Encounter [facility] Breast Care [address] [place] [address] [phone] Tiago Weinberg MD [address] [id number] Mammography Discharge Disposition: Home or Self Care Social [...] 50 mg by mouth once as needed. documented as of this encounter Progress Notes * Ines Colón RN - 07/15/2014 3:30 PM CDTQuick Note: Pt informed. * Ines Colón RN - 07/15/2014 1:27 PM CDTQuick Note: LMTCO. * Ines Colón RN - 07/14/2014 12:39 PM CDTQuick Note: LMTCO. * Jelly Heart APRN-CNP - 07/14/2014 10:32 AM CDTQuick Note: Mag views with possible ultrasound of left breast. documented in this encounter Plan of Treatment Not on file documented as of this encounter Procedures Procedure Name Priority Date/Time Associated Diagnosis Comments MAMMO SCREEN SPIKE IMPLANTS Routine 07/13/2014 1:22 PM CDT Other screening mammogram documented in this encounter Results * RAKEL SCREENING IMPLANTS BILAT DIGITAL (07/13/2014 1:22 PM CDT) Anatomical Region Laterality Modality Breast Mammography 07/13/2014 4:11 PM CDT Impressions 07/13/2014 4:24 PM CDT BI-RADS category 0, recommendation is for additional views left breast and possible left breast ultrasound. A) ??A negative report should not delay a biopsy if a dominant or clinically suspicious mass is present. B) ??Adenosis and dense breasts may obscure an underlying neoplasm. C) ??Study interpreted with computer-aided detection. MQSA BI-RADS Categories: Category 0 - needs additional imaging evaluation. Category 1 - negative. Category 2 - benign findings. Category 3 - probably benign findings, but short interval followup is recommended. Category 4 - suspicious abnormality and biopsy should be considered though the lesion may well be benign. Category 5 - highly suggestive of malignancy and appropriate action should be taken. Preliminary report faxed to the office of Dr. Tiago Weinberg on 07/13/2014 at approximately 1618 hours with subsequent call made to [address] to confirm receipt of report. Narrative 07/13/2014 4:24 PM CDT DIGITAL MAMMOGRAM WITH CAD: 07/13/2014 COMPARISON: June 04, 2013, April 08, 2012 and December 28, 2010. FINDINGS: No masses or abnormal calcifications are documented today. Benign density lateral right breast stable dating back to 2010. Views of the left breast show glandular asymmetry that requires spot compression view and possible left breast ultrasound. It is marked on the CC projection and difficult to assess on the MLO projection, but I marked the area I believe it represents. Tiago Weinberg MD MAMMO ORDERABLE S documented in this encounter Visit Diagnoses Diagnosis Other screening mammogram documented in this encounter Care Teams Multiple Wire Sawyer Relationship Specialty Start Date End Date Tiago Weinberg MD [address] [address] PCP - General Internal Medicine 06/01/13 Jelly Heart, NICOLE-WAREHOUSE ADMINISTRATIVE ASSISTANT [address] [address] Nurse Practitioner 07/06/14 documented as of this encounter
--- OUTSIDE RECORDS SUMMARY | 2024-09-29 13:02 | XMS_ITS | Encounter Summary ---
Author Organization [facility] Address [address] [place] [address] Care Team Providers Care Dermatology Teacher Name Role Phone Valeriano Cornell MD Primary Care Provider [phone] Reason for Visit * Cardiology (Routine) - Closed Specialty Diagnoses / Procedures Referred By Contac t Referred To Contact Diagnoses Chest pain, unspecified type Procedures Transthoracic Echo Complete W Doppler/CF Valeriano Cornell MD Phone: tel: fax: [facility] Referral ID Status Reason Start Date Expiration Date Visits Re quested Visits Authorized [id number] Closed 11/21/2020 12/21/2021 1 1 Encounter Details Date Type Department Care Team (Latest Contact Info) Description 11/24/2020 2:00 PM SERVICE UNIT OPERATOR OIL WELL Ancillary Procedure [facility] Cardiology [address] [place] [address] Chest pain, unspecified type Social History Tobacco Use Types Packs/Day Years Used Date Smoking Tobacco: Never Assessed Comments Unknown Sex and Gender Information Value Date Recorded Sex Assigned at Not on file Legal Sex Female 2:02 AM SERVICE UNIT OPERATOR OIL WELL Gender Identity Not on file Sexual Orientation Not on file documented as of this encounter Last Filed Vital Signs Vital Sign Reading Time Taken Comments Blood Pressure - - Pulse - - Temperature 36.4 ??C (97.5 ??F) 11/24/2020 1:53 PM CS T Respiratory Rate - - Oxygen Saturation - - Inhaled Oxygen Concentration - - Weight - - Height - - Body Mass Index - - documented in this encounter Plan of Treatment Not on file documented as of this encounter Procedures Procedure Name Priority Date/Time Associated Diagnosis Comments TRANSTHORACIC ECHO (TTE) COMPLETE W DOPPLER/CF WO CONTRAST Routine 11/24/2020 2:43 PM SERVICE UNIT OPERATOR OIL WELL Chest pain, unspecified type documented in this encounter Results * TRANSTHORACIC ECHO (TTE) COMPLETE W DOPPLER/CF WO CONTRAST (11/24/2020 2:43 PM SERVICE UNIT OPERATOR OIL WELL) Anatomical Region Laterality Modality Ultrasound 11/24/2020 1:47 PM SERVICE UNIT OPERATOR OIL WELL Narrative 11/24/2020 4:38 PM SERVICE UNIT OPERATOR OIL WELL [facility] Cardiology [address] [facility] [address], [place] [address] [address] [facility] [address], [place] [address] P:[phone] P:[phone] Echocardiographic Report Patient Name: KRISTINE GARCÍA : 1955 Study Date: 11/24/2020 1:47:29 PM Gender: F Tech: Location: [place] Ref.Provider: MARINO Height(Cm): 163 BSA: 2.04 Weight(Kg): 99.79 Heart Rate: 55 BP: 136/76 Quality: Good Order Provider: VALERIANO CORNELL Procedures: Echocardiographic Report: Transthoracic echocardiogram with complete 2D, M-Mode, and color Doppler examination. Indications: Chest Pain. Measurements: 2D/M Mode ?Doppler ? Measurement ?Value ?Normal Range ? Measurement ?Value ?Normal Range ? EF Mod ? 72 ?AV Mean PG ? 4 ?mmHg ? EF MM ?72 ? [ 55 - 70 ] % ?AV Peak Kip ?1.45 ? m/s ? LVIDd MM ? 4.53 ? [ 3.90 - 5.30 ] cm ? AV Peak PG ? 8 ?mmHg ? LVIDs MM ? 2.67 ? [ 2.30 - 3.90 ] cm ? AV VTI ? 0.34 ? cm ? LVPWd MM ? 1.20 ? [ 0.60 - 1.00 ] cm ? LVOT Peak Kip ?0.87 ? [ 0.70 - 1.10 ] m/s ? IVSd MM ?1.13 ? [ 0.60 - 0.90 ] cm ? LVOT VTI ? 0.19 ? cm ? LA Dimension MM ?4.07 ? [ 2.70 - 3.80 ] cm ? MV E Peak Kip ?0.91 ? [ 0.60 - 1.30 ] m/s ? AoR Diam MM ?3.13 ? [ 2.60 - 3.70 ] cm ? MV A Peak Kip ?0.92 ? [ 0.40 - 0.80 ] m/s ? LA Volume Index ?24.00 ?[ 16.00 - 28.00 ] cc/m2 ?MV Decel Time ?272 ?[ 150 - 200 ] msec ? ACS MM ? 1.93 ? cm ? PV Peak Kip ?1.08 ? [ 0.40 - 0.80 ] m/s ? TR Peak Kip ?2.59 ? [ 0.40 - 0.80 ] m/s ? TR Peak PG ? 27 ? mmHg ? RVSP ? 35.00 ?mmHg ? E' ? 0.11 ? E/E' ? 9 ? Findings: Interpretation Site: Exam was interpreted at [facility]. Left Ventricle: Normal left ventricular systolic function. No focal wall motion abnormalities. Normal left ventricular size. Mild concentric left ventricular hypertrophy. Normal left ventricular diastolic function. Ejection fraction is visually estimated at 70-75 %. Ejection fraction is measured at 72 %. Right Ventricle: Normal right ventricular systolic function. Mild enlargement of right ventricle. Left Atrium: There is mild enlargement of left atrium. Right Atrium: The right atrium is normal in size. Atrial Septum: Normal atrial septum. Mitral Valve: Normal appearance of the mitral valve. Mild mitral valve regurgitation. There is no hemodynamically significant mitral stenosis by Doppler. Aortic Valve: No evidence of hemodynamically significant aortic stenosis by Doppler. Aortic cusps appear mildly sclerotic. Trileaflet aortic valve. Trace aortic valve regurgitation. Tricuspid Valve: Normal appearance of the tricuspid valve. Normal right ventricular systolic pressure. Estimated peak RVSP is 30-35 mmHg. Mild tricuspid regurgitation. Pulmonic Valve: Normal appearance of the pulmonic valve. No pulmonic stenosis. Mild pulmonic regurgitation. Pericardium: Normal pericardium with no significant pericardial effusion. Aorta: Normal aortic root. IVC: Normal size and normal respiratory collapse consistent with normal right atrial pressure (<5 mmHg). Conclusions: Normal left ventricular systolic function. No focal wall motion abnormalities. Normal left ventricular size. Mild concentric left ventricular hypertrophy. Normal left ventricular diastolic function. Ejection fraction is visually estimated at 70-75 %. Ejection fraction is measured at 72 %. Normal right ventricular systolic function. Mild enlargement of right ventricle. There is mild enlargement of left atrium. Mild mitral valve regurgitation. Mild tricuspid regurgitation. Mild pulmonic regurgitation. Normal sinus rhythm. Electronically Signed By: Mac Shannon MD 2020-11-24 16:38:46 SERVICE UNIT OPERATOR OIL WELL Procedure Note Mac Shannon MD - 11/24/2020 [facility] Cardiology [address] [facility] [address], [place] [address] [address] [facility] [id number], [place] [address] P:[phone] P:[phone] Echocardiographic Report Patient Name: KRISTINE GARCÍAPatient ID: [id number] : [id number] Date: 11/24/2020 1:47:29 PM Gender: FAccession #: [id number] Tech: GMLocation: [place] Ref.Provider: Rayna(Cm): 163 BSA: 2.04Weight(Kg): 99.79 Heart Rate: 55BP: 136/76 Quality: GoodOrder Provider: VALERIANO CORNELL Procedures: Echocardiographic Report: Transthoracic echocardiogram with complete 2D, M-Mode, and color Dopplerexamination. Indications: Chest Pain. Measurements: 2D/M Mode Doppler Measurement Value Normal Range MeasurementValue Normal Range EF Mod 72 AV Mean PG 4mmHg EF MM 72 [ 55 - 70 ] % AV Peak Vel1.45 m/s LVIDd MM 4.53 [ 3.90 - 5.30 ] cm AV Peak PG 8mmHg LVIDs MM 2.67 [ 2.30 - 3.90 ] cm AV VTI0.34 cm LVPWd MM 1.20 [ 0.60 - 1.00 ] cm LVOT Peak Vel0.87 [ 0.70 - 1.10 ] m/s IVSd MM 1.13 [ 0.60 - 0.90 ] cm LVOT VTI0.19 cm LA Dimension MM 4.07 [ 2.70 - 3.80 ] cm MV E Peak Vel0.91 [ 0.60 - 1.30 ] m/s AoR Diam MM 3.13 [ 2.60 - 3.70 ] cm MV A Peak Vel0.92 [ 0.40 - 0.80 ] m/s LA Volume Index 24.00 [ 16.00 - 28.00 ] cc/m2 MV Decel Fpcw750 [ 150 - 200 ] msec ACS MM 1.93 cm PV Peak Vel1.08 [ 0.40 - 0.80 ] m/s TR Peak Vel2.59 [ 0.40 - 0.80 ] m/s TR Peak PG 27mmHg RVSP35.00 mmHg E'0.11 E/E' 9 Findings: Interpretation Site: Exam was interpreted at [facility]. Left Ventricle: Normal left ventricular systolic function. No focal wall motionabnormalities. Normal left ventricular size. Mild concentric left ventricular hypertrophy.Normal left ventricular diastolic function. Ejection fraction is visually estimated at70-75 %. Ejection fraction is measured at 72 %. Right Ventricle: Normal right ventricular systolic function. Mild enlargement of rightventricle. Left Atrium: There is mild enlargement of left atrium. Right Atrium: The right atrium is normal in size. Atrial Septum: Normal atrial septum. Mitral Valve: Normal appearance of the mitral valve. Mild mitral valve regurgitation.There is no hemodynamically significant mitral stenosis by Doppler. Aortic Valve: No evidence of hemodynamically significant aortic stenosis by Doppler.Aortic cusps appear mildly sclerotic. Trileaflet aortic valve. Trace aortic valveregurgitation. Tricuspid Valve: Normal appearance of the tricuspid valve. Normal right ventricularsystolic pressure. Estimated peak RVSP is 30-35 mmHg. Mild tricuspid regurgitation. Pulmonic Valve: Normal appearance of the pulmonic valve. No pulmonic stenosis. Mildpulmonic regurgitation. Pericardium: Normal pericardium with no significant pericardial effusion. Aorta: Normal aortic root. IVC: Normal size and normal respiratory collapse consistent with normal rightatrial pressure (<5 mmHg). Conclusions: Normal left ventricular systolic function. No focal wall motionabnormalities. Normal left ventricular size. Mild concentric left ventricular hypertrophy.Normal left ventricular diastolic function. Ejection fraction is visually estimated at70-75 %. Ejection fraction is measured at 72 %. Normal right ventricular systolic function. Mild enlargement of rightventricle. There is mild enlargement of left atrium. Mild mitral valve regurgitation. Mild tricuspid regurgitation. Mild pulmonic regurgitation. Normal sinus rhythm. Electronically Signed By: Mac Shannon MD 2020-11-24 16:38:46 SERVICE UNIT OPERATOR OIL WELL us Valeriano Cornell MD CV ECHO PROCEDURES Final Res ult documented in this encounter Visit Diagnoses Diagnosis Chest pain, unspecified type documented in this encounter Care Teams Dermatology Teacher Relationship Specialty Start Date End Date Valeriano Cornell MD PCP - General Internal Medicine 11/21/20 documented as of this encounter
--- OUTSIDE RECORDS SUMMARY | 2024-09-29 13:02 | XMS_ITS | Encounter Summary ---
Author Organization [facility] Address [address] [place] [address] Care Team Providers Care Director Of Reservations Name Role Phone Valeriano Cornell MD Primary Care Provider [phone] Reason for Visit * Diagnostic Imaging (Routine) - Closed Specialty Diagnoses / Procedures Referred By Contac t Referred To Contact Diagnoses Chest pain, unspecified type Procedures NM MPI SPECT (Rest and/or Stress) Multiple Studies Valeriano Cornell MD Phone: tel: fax: [facility] Referral ID Status Reason Start Date Expiration Date Visits Re quested Visits Authorized [id number] Closed 11/22/2020 01/06/2021 1 1 Encounter Details Date Type Department Care Team (Latest Contact Info) Description 11/27/2020 10:15 AM DITCH WORKER Ancillary Procedure [facility] Medical [facility] Cardiology [address] [facility] [address] [place] [address] Chest pain, unspecified type Social History Tobacco Use Types Packs/Day Years Used Date Smoking Tobacco: Never Assessed Comments Unknown Sex and Gender Information Value Date Recorded Sex Assigned at Not on file Legal Sex Female 2:02 AM DITCH WORKER Gender Identity Not on file Sexual Orientation Not on file documented as of this encounter Plan of Treatment Not on file documented as of this encounter Procedures Procedure Name Priority Date/Time Associated Diagnosis Comments NM MPI SPECT (REST AND/OR STRESS) MULTIPLE STUDIES Schedule Routine, Read Routine (OP Routine) 11/27/2020 11:50 AM DITCH WORKER Chest pain, unspecified type documented in this encounter Results * NM MPI SPECT (Rest and/or Stress) Multiple Studies (11/27/2020 11:50 AM DITCH WORKER) Anatomical Region Laterality Modality Body N/A Nuclear Medicine 11/27/2020 11:3 3 AM DITCH WORKER Narrative 11/27/2020 1:30 PM DITCH WORKER [facility] Cardiology [address] [facility] [address], [place] [address] [address] [facility] [address], [place] [address] P:[phone] P:[phone] MPI Imaging Report Patient Name: KRISTINE GARCÍA D : 1955 Study Date: 11/27/2020 11:33:14 AM Gender: F Tech: ANNA COX BRANSON Location: [facility] Ref.Provider: VALERIANO CORNELL Height(Cm): 162.5 BSA: Weight(Kg): 100 BMI: 37.87Order Provider: VALERIANO CORNELL Physician: Referring Physician: Dr. Cornell. HCG Physician: none. Interpreting Physician: Hallie Ambrocio M.D. Stress Supervision: Hallie Ambrocio M.D. Procedures: Myocardial perfusion imaging with Tc99M Sestamibi SPECT at rest and stress post regadenoson (Lexiscan) infusion. Treadmill stress converted to ambulatory stress at 6:48 due to dyspnea and unable to reach target heart rate. Indications: Chest Pain, Hypertension, Family Hx CAD, and High Cholesterol. Findings: Procedural Findings: One day rest/stress was used. Tc99m Sestamibi injected IV at rest was 12.3 millicuries. 36.0 millicuries of Tc99M Sestamibi injected IV during Lexiscan stress. Lexiscan 0.4mg given IV over 10 seconds with low level exercise: 1.2 MPH. Pharmacologic stress related symptoms and/or side effects during infusion include shortness of breath. Symptoms were resolved with rest and completion of Lexiscan protocol. Baseline heart rate was 63 BPM. Maximum Heart Rate Achieved was: 118 BPM. Baseline blood pressure was 128/82 mmHg. Post Stress Blood Pressure was 136/78 mmHg. Termination: Protocol complete. Resting ECG: Normal sinus rhythm. Post ECG: No diagnostic ST changes. Arrhythmia: No arrhythmias seen. Perfusion Findings: Normal perfusion imaging. No definite fixed or reversible defects. Technical quality of study is excellent. Prone imaging was performed. Left ventricle cavity size at rest is normal. Left ventricle cavity size with stress is unchanged. A TID of 0.72 was automatically calculated. defect 1: Size is small. Severity is mild. Location of defect is in the mid anteroseptal segment and apical septal segment. Reversibility is not present, defect is fixed. Type of Type of defect is attenuation artifact. Artifact noted from breast attenuation. Improved with prone imaging with slight shift more suggestive of attenuation artifact. LV Function: Global left ventricular function is normal. Left ventricular ejection fraction is 73 %. Conclusions: No diagnostic ST changes. Global left ventricular function is normal. Left ventricular ejection fraction is 73 %. Myocardial perfusion imaging is normal with evidence of breast attenuation artifact. Recommend follow up with sales trainer. Electronically Signed By: Hallie Ambrocio MD 2020-11-27 13:30:29 DITCH WORKER Electronically Signed By: Hallie Ambrocio MD 2020-11-27 13:30:29 DITCH WORKER Procedure Note Riaz Ambrocio MD - 11/27/2020 [facility] Cardiology [address] [facility] [address] [id number] [address] [facility] [id number], [place] [address] P:[phone] P:[phone] MPI Imaging Report Patient Name: KRISTINE GARCÍA DParoselia ID: [id number] : [id number] Date: 11/27/2020 11:33:14 AM Gender: FAccession #: [id number] Tech: ANAN COX BRANSONLocation: [place] Ref.Provider: VALERIANO CORNELLHeight(Cm): 162.5 BSA: Weight(Kg): 100 BMI: 37.87Order Provider: VALERIANO CORNELL Physician: Referring Physician: Dr. Cornell. HCG Physician: none. Interpreting Physician: Hallie Ambrocio M.D. Stress Supervision: Hallie Ambrocio M.D. Procedures: Myocardial perfusion imaging with Tc99M Sestamibi SPECT at rest and stresspost regadenoson (Lexiscan) infusion. Treadmill stress converted to ambulatorystress at 6:48 due to dyspnea and unable to reach target heart rate. Indications: Chest Pain, Hypertension, Family Hx CAD, and High Cholesterol. Findings: Procedural Findings: One day rest/stress was used. Tc99m Sestamibi injected IV at rest was 12.3millicuries. 36.0 millicuries of Tc99M Sestamibi injected IV during Lexiscan stress.Lexiscan 0.4mg given IV over 10 seconds with low level exercise: 1.2 MPH. Pharmacologicstress related symptoms and/or side effects during infusion include shortness of breath.Symptoms were resolved with rest and completion of Lexiscan protocol. Baseline heartrate was 63 BPM. Maximum Heart Rate Achieved was: 118 BPM. Baseline blood pressure soc062/82 mmHg. Post Stress Blood Pressure was 136/78 mmHg. Termination: Protocol complete. Resting ECG: Normal sinus rhythm. Post ECG: No diagnostic ST changes. Arrhythmia: No arrhythmias seen. Perfusion Findings: Normal perfusion imaging. No definite fixed or reversible defects.Technical quality of study is excellent. Prone imaging was performed. Left ventricle cavitysize at rest is normal. Left ventricle cavity size with stress is unchanged. A TID of 0.72was automatically calculated. defect 1: Size is small. Severity is mild. Location of defect is in the midanteroseptal segment and apical septal segment. Reversibility is not present, defect is fixed.Type of Type of defect is attenuation artifact. Artifact noted from breast attenuation.Improved with prone imaging with slight shift more suggestive of attenuation artifact. LV Function: Global left ventricular function is normal. Left ventricular ejectionfraction is 73 %. Conclusions: No diagnostic ST changes. Global left ventricular function is normal. Left ventricular ejectionfraction is 73 %. Myocardial perfusion imaging is normal with evidence of breast attenuationartifact. Recommend follow up with sales trainer. Electronically Signed By: Hallie Ambrocio MD 2020-11-27 13:30:29 DITCH WORKER Electronically Signed By: Hallie Ambrocio MD 2020-11-27 13:30:29 DITCH WORKER Valeriano Cornell MD [facility] PROCEDURES Final Resu lt documented in this encounter Visit Diagnoses Diagnosis Chest pain, unspecified type documented in this encounter Administered Medications Inactive Administered Medications - up to 3 most recent administrations Medication Order MAR Action Action Date Dose Rate Site regadenoson (LEXISCAN) 0.4 mg/5 mL injection 0.4 mg 0.4 mg, intravenous, Once, On Fri11/27/20 at 1230, For 1 dose, Administer IV push over 10 seconds., Indications: Myocardial Perfusion Imaging AdjunctIndications:Myocard ial Perfusion Imaging Adjunct Given 11/27/2020 11:54 AM DITCH WORKER 0.4 mg tc-99m sestamibi unit dose injection 12.3 millicurie 12.3 millicurie, intravenous, Once in imaging, radiopharmaceutical, Starting on Fri11/27/20 at 1044, For 1 dose, Indications: Diagnostic RadiographyIndications:Farhana gnostic Radiography Given 11/27/2020 10:45 AM DITCH WORKER 12.3 millicuries tc-99m sestamibi unit dose injection 36 millicurie 36 millicurie, intravenous, Once in imaging, radiopharmaceutical, Starting on Fri11/27/20 at 1153, For 1 dose, Indications: Diagnostic RadiographyIndications:Farhana gnostic Radiography Given 11/27/2020 11:54 AM DITCH WORKER 36 millicuries documented in this encounter Care Teams Director Of Reservations Relationship Specialty Start Date End Date Valeriano Cornell MD PCP - General Internal Medicine 11/21/20 documented as of this encounter
--- OUTSIDE RECORDS SUMMARY | 2024-09-29 13:02 | XMS_ITS | Clinical Summary ---
Author Organization [facility] [address] Address [address] [place] [address] Care Team Providers Care Psychiatrist Name Role Phone Valeriano Cornell MD Primary Care Provider Allergies No known active allergies Medications bacitracin 500 unit/gram ointment Apply topically 2 (two) times a day 120 g 4 Active ciprofloxacin (CIPRO) 500 mg tablet Take 1 tablet (500 mg total) by mouth 2 (two) times a day for 7 days 14 tablet 4 10/02/20 24 Active oxyCODONE (ROXICODONE) 5 mg immediate release tabletIndicatio ns:Pain Take 1 tablet (5 mg total) by mouth every 4 (four) hours as needed for pain 12 tablet 4 Active sodium chloride (OCEAN) 0.65 % nasal spray Administer 1 spray into each nostril as needed for rhinitis 15 mL 4 09/25/20 25 Active Encounters Date Type Department Care Team Description 09/25/2024 6:38 PM STEWARD/STEWARDESS SECOND - 09/25/2024 10:27 PM ST[facility]ARD/ST[facility]OND Emergency [facility] Emergency Department [address] [place] [address] Sary Hoang MD Diagnosis unknown (Primary Dx); Nasal laceration, initial encounter Discharge Disposition: Discharge to home or self care from Last 3 Months Social History Tobacco Use Types Packs/Day Years Used Date Smoking Tobacco: Never Assessed Personal Safety Answer Date Recorded Have you ever been in or are you currently in a harmful physical or emotional relationship or is someone making you feel afraid or unsafe? Denies 09/25/2024 Comments Unknown Sex and Gender Information Value Date Recorded Sex Assigned at Not on file Legal Sex Female 2:02 AM STEWARD/STEWARDESS SECOND Gender Identity Not on file Sexual Orientation Not on file Last Filed Vital Signs Vital Sign Reading Time Taken Comments Blood Pressure 160/79 09/25/2024 10:26 PM [facility] Pulse 65 09/25/2024 10:26 PM ST[facility]ARD[facility]ST[facility] Temperature 36.6 ??C (97.9 ??F) 09/25/2024 5:42 PM CS T Respiratory Rate 16 09/25/2024 10:26 PM [facility]ARD[facility]ST[facility]OND Oxygen Saturation 97% 09/25/2024 10:26 PM ST[facility]ARD[facility] Inhaled Oxygen Concentration - - Weight 99.8 kg (220 lb) 09/25/2024 5:42 PM [facility]ARD[facility] Height 162.6 cm (5' 4 ) 09/25/2024 5:42 PM [facility]ARD[facility] Body Mass Index 37.76 09/25/2024 5:42 PM [facility]ARD[facility]ST[facility] Plan of Treatment Health Maintenance Due Date Last Done Comments Colon Cancer Screening-Colonoscopy 1955 Depression Screening 1953 Fall Risk Assessment 1955 Hepatitis C Screening 1955 Osteoporosis Screening-Bone Density Scan 1953 Hepatitis B Screening 1971 Zoster Vaccine (1 of 2) 2003 Breast Cancer Screening-Mammogram 04/29/2017 016, 06/04/2013 Well Visit 65+ 2018 DTaP/Tdap/Td Vaccine (2 - Td or Tdap) 09/25/2034 09/25/2024 Pneumococcal vaccine 65+ Completed 08/22/2022, 1112/2019 Covid-19 Vaccine Completed 08/02/2024, , 02/18/2022, Additional history exists Influenza Vaccine Completed 08/02/2024, , 09/24/2021, Additional history exists Procedures Procedure Name Priority Date/Time Associated Diagnosis Comments NEURO CT OUTSIDE CONSULT Routine 09/25/2024 7:33 PM [facility] Diagnosis unknown NEURO CT OUTSIDE CONSULT Routine 09/25/2024 7:30 PM [facility] Diagnosis unknown POCT GLUCOSE DEVICE Routine 09/25/2024 6 :48 PM [facility] SCREENING MAMMOGRAM BILATERAL W AYAZ Routine 04/29/2016 11:26 AM CDT from Last 3 Months or Most Recently Relevant to Health Maintenance Results * Neuro CT Outside Consult (09/25/2024 7:33 PM STEWARD/ST[facility] SECOND) Anatomical Region Laterality Modality N/A Computed Tomogra phy 09/26/2024 1:57 AM [facility] Impressions 09/26/2024 7:52 AM [facility]ARD/ST[facility]OND 1. ??No acute intracranial abnormality. 2. ??No acute fracture in the cervical spine. 3. ??Soft tissue laceration of the left nasal ala, no underlying osseous involvement. The findings, conclusions and recommendations within this report do not replace the ??initial findings, conclusions ??and recommendations made at the facility where the ??study was performed based upon the imaging and clinical condition at that time. ?? Comparison with the prior report and clinical history is necessary. ??The provided images may or may not represent the [place] source data set and thus may contain changes that may lower the accuracy of this second-opinion interpretation. Dictated by: Han Greenfield MD The radiology attending physician has personally reviewed this study, and had reviewed and/or edited this written report and agrees with it. Electronically signed by: Kam Boogie MD Narrative 09/26/2024 7:52 AM [facility]ARD/[facility]OND EXAMINATION: RADIOLOGY CONSULTATION ON OUTSIDE IMAGING STUDY STUDY INITIALLY PERFORMED: ??09/25/2024 at 2:27 PM at [facility]. ?? TYPE OF STUDY: Multiple CT images of the head and cervical spine without contrast are provided at the time of this interpretation. The protocol was adequate to address the clinical question. The outside final report was not available at the time of this second opinion interpretation. TYPE OF CONSULTATION: ??Consult on outside imaging study with images submitted through [facility]. DATE OF CONSULTATION: 09/26/2024 1:46 AM. HISTORY: 69-year-old female with complex nasal laceration status post repair. COMPARISON: None available. FINDINGS: HEAD: Scattered ill-defined hypodensities in the periventricular and subcortical white matter are nonspecific, likely on the basis of chronic small vessel ischemic change. There is parenchymal volume loss. There are atherosclerotic calcifications of the intracranial vessels. The topogram demonstrates no lytic lesions or fractures. There is no acute intracranial hemorrhage. The ventricles are of normal size and morphology. No mass effect or midline shift is present . The woods-white matter differentiation is normal. The orbits are normal. The ostiomeatal units are open bilaterally. The nasal septum is at midline. No areas of bony erosion are identified. The remaining maxillofacial bones are unremarkable. The mastoid sinuses are normal.The frontal, ethmoid, and sphenoid sinuses are normal. The maxillary sinuses are normal. Complex soft tissue laceration of the left nasal ala. CERVICAL SPINE: The alignment of the cervical spine is normal. There is no acute fracture. There is no spinal canal stenosis. The craniocervical junction is normal. No soft tissue abnormality is identified. The intervertebral disk heights are normal. Vertebral bodies are normal in height without compression fractures. The facets are normal. The uncovertebral joints are normal without foraminal stenosis. Procedure Note Kam Boogie MD PhD - 09/26/2024 EXAMINATION: RADIOLOGY CONSULTATION ON OUTSIDE IMAGING STUDY STUDY INITIALLY PERFORMED: 09/25/2024 at 2:27 PM at [facility]. TYPE OF STUDY: Multiple CT images of the head and cervical spine without contrast are provided at the time of this interpretation. The protocol was adequate to address the clinical question. The outside final report was not available at the time of this second opinion interpretation. TYPE OF CONSULTATION: Consult on outside imaging study with images submitted through [facility]. DATE OF CONSULTATION: 09/26/2024 1:46 AM. HISTORY: 69-year-old female with complex nasal laceration status post repair. COMPARISON: None available. FINDINGS: HEAD: Scattered ill-defined hypodensities in the periventricular and subcortical white matter are nonspecific, likely on the basis of chronic small vessel ischemic change. There is parenchymal volume loss. There are atherosclerotic calcifications of the intracranial vessels. The topogram demonstrates no lytic lesions or fractures. There is no acute intracranial hemorrhage. The ventricles are of normal size and morphology. No mass effect or midline shift is present . The woods-white matter differentiation is normal. The orbits are normal. The ostiomeatal units are open bilaterally. The nasal septum is at midline. No areas of bony erosion are identified. The remaining maxillofacial bones are unremarkable. The mastoid sinuses are normal.The frontal, ethmoid, and sphenoid sinuses are normal. The maxillary sinuses are normal. Complex soft tissue laceration of the left nasal ala. CERVICAL SPINE: The alignment of the cervical spine is normal. There is no acute fracture. There is no spinal canal stenosis. The craniocervical junction is normal. No soft tissue abnormality is identified. The intervertebral disk heights are normal. Vertebral bodies are normal in height without compression fractures. The facets are normal. The uncovertebral joints are normal without foraminal stenosis. IMPRESSION: 1. No acute intracranial abnormality. 2. No acute fracture in the cervical spine. 3. Soft tissue laceration of the left nasal ala, no underlying osseous involvement. The findings, conclusions and recommendations within this report do not replace the initial findings, conclusions and recommendations made at the facility where the study was performed based upon the imaging and clinical condition at that time. Comparison with the prior report and clinical history is necessary. The provided images may or may not represent the [place] source data set and thus may contain changes that may lower the accuracy of this second-opinion interpretation. Dictated by: Han Greenfield MD The radiology attending physician has personally reviewed this study, and had reviewed and/or edited this written report and agrees with it. Electronically signed by: Kam Boogie MD Sary Hoang MD IMG CT PROCEDURES Final R esult * Neuro CT Outside Consult (09/25/2024 7:30 PM [facility]ARD/[facility] SECOND) Anatomical Region Laterality Modality N/A Computed Tomogra phy 09/26/2024 1:57 AM [facility] Impressions 09/26/2024 7:52 AM [facility] 1. ??No acute intracranial abnormality. 2. ??No acute fracture in the cervical spine. 3. ??Soft tissue laceration of the left nasal ala, no underlying osseous involvement. The findings, conclusions and recommendations within this report do not replace the ??initial findings, conclusions ??and recommendations made at the facility where the ??study was performed based upon the imaging and clinical condition at that time. ?? Comparison with the prior report and clinical history is necessary. ??The provided images may or may not represent the [place] source data set and thus may contain changes that may lower the accuracy of this second-opinion interpretation. Dictated by: Han Greenfield MD The radiology attending physician has personally reviewed this study, and had reviewed and/or edited this written report and agrees with it. Electronically signed by: Kam Boogie MD Narrative 09/26/2024 7:52 AM [facility]OND EXAMINATION: RADIOLOGY CONSULTATION ON OUTSIDE IMAGING STUDY STUDY INITIALLY PERFORMED: ??09/25/2024 at 2:27 PM at [facility]. ?? TYPE OF STUDY: Multiple CT images of the head and cervical spine without contrast are provided at the time of this interpretation. The protocol was adequate to address the clinical question. The outside final report was not available at the time of this second opinion interpretation. TYPE OF CONSULTATION: ??Consult on outside imaging study with images submitted through [facility]. DATE OF CONSULTATION: 09/26/2024 1:46 AM. HISTORY: 69-year-old female with complex nasal laceration status post repair. COMPARISON: None available. FINDINGS: HEAD: Scattered ill-defined hypodensities in the periventricular and subcortical white matter are nonspecific, likely on the basis of chronic small vessel ischemic change. There is parenchymal volume loss. There are atherosclerotic calcifications of the intracranial vessels. The topogram demonstrates no lytic lesions or fractures. There is no acute intracranial hemorrhage. The ventricles are of normal size and morphology. No mass effect or midline shift is present . The woods-white matter differentiation is normal. The orbits are normal. The ostiomeatal units are open bilaterally. The nasal septum is at midline. No areas of bony erosion are identified. The remaining maxillofacial bones are unremarkable. The mastoid sinuses are normal.The frontal, ethmoid, and sphenoid sinuses are normal. The maxillary sinuses are normal. Complex soft tissue laceration of the left nasal ala. CERVICAL SPINE: The alignment of the cervical spine is normal. There is no acute fracture. There is no spinal canal stenosis. The craniocervical junction is normal. No soft tissue abnormality is identified. The intervertebral disk heights are normal. Vertebral bodies are normal in height without compression fractures. The facets are normal. The uncovertebral joints are normal without foraminal stenosis. Procedure Note Kam Boogie MD PhD - 09/26/2024 EXAMINATION: RADIOLOGY CONSULTATION ON OUTSIDE IMAGING STUDY STUDY INITIALLY PERFORMED: 09/25/2024 at 2:27 PM at [facility]. TYPE OF STUDY: Multiple CT images of the head and cervical spine without contrast are provided at the time of this interpretation. The protocol was adequate to address the clinical question. The outside final report was not available at the time of this second opinion interpretation. TYPE OF CONSULTATION: Consult on outside imaging study with images submitted through [facility]. DATE OF CONSULTATION: 09/26/2024 1:46 AM. HISTORY: 69-year-old female with complex nasal laceration status post repair. COMPARISON: None available. FINDINGS: HEAD: Scattered ill-defined hypodensities in the periventricular and subcortical white matter are nonspecific, likely on the basis of chronic small vessel ischemic change. There is parenchymal volume loss. There are atherosclerotic calcifications of the intracranial vessels. The topogram demonstrates no lytic lesions or fractures. There is no acute intracranial hemorrhage. The ventricles are of normal size and morphology. No mass effect or midline shift is present . The woods-white matter differentiation is normal. The orbits are normal. The ostiomeatal units are open bilaterally. The nasal septum is at midline. No areas of bony erosion are identified. The remaining maxillofacial bones are unremarkable. The mastoid sinuses are normal.The frontal, ethmoid, and sphenoid sinuses are normal. The maxillary sinuses are normal. Complex soft tissue laceration of the left nasal ala. CERVICAL SPINE: The alignment of the cervical spine is normal. There is no acute fracture. There is no spinal canal stenosis. The craniocervical junction is normal. No soft tissue abnormality is identified. The intervertebral disk heights are normal. Vertebral bodies are normal in height without compression fractures. The facets are normal. The uncovertebral joints are normal without foraminal stenosis. IMPRESSION: 1. No acute intracranial abnormality. 2. No acute fracture in the cervical spine. 3. Soft tissue laceration of the left nasal ala, no underlying osseous involvement. The findings, conclusions and recommendations within this report do not replace the initial findings, conclusions and recommendations made at the facility where the study was performed based upon the imaging and clinical condition at that time. Comparison with the prior report and clinical history is necessary. The provided images may or may not represent the [place] source data set and thus may contain changes that may lower the accuracy of this second-opinion interpretation. Dictated by: Han Greenfield MD The radiology attending physician has personally reviewed this study, and had reviewed and/or edited this written report and agrees with it. Electronically signed by: Kam Boogie MD us Sary Hoang MD IMG CT PROCEDURES Final R esult * POCT glucose (09/25/2024 6:48 PM [facility]) Glucose, POC 145 70 - 199 mg/dL Blood 09/25/2024 6:48 PM [facility] 09/25/2024 6:48 PM [facility] us Sary Hoang MD LAB POCT ORDERABLES - DEV ICE Final Result [facility] Department [place] [address] * Screening Mammogram Bilateral W Ayaz (04/29/2016 [...] ?? Rey Cabrera M.D. ab/:05/07/2016 10:33:03 ?? Electronic Technologist: Sarah Kelsey)(Declan), [facility] letter sent: Additional Imaging ?? Reading location: [...] mammogram, 07/13/2014 mammogram, and 06/04/2013 mammogram - [facility]. ?? BREAST TISSUE: There are [...] 07/20/2014 mammogram,07/13/2014 mammogram, and 06/04/2013 mammogram - [facility]. BREAST TISSUE: There are scattered [...] be contacted. Rey Cabrera M.D. ab/:05/07/2016 10:33:03 Electronic Technologist: Sarah Leon (R)), [facility] letter sent: Additional Imaging Reading location: BI-RADS: 0 Additional Imaging Evaluation Needed [EOD] Jazmine BROWNE IMG MAMMO PROCEDURES Final Result from Last 3 Months or Most Recently Relevant to Health Maintenance Insurance [employer] MEDICARE FORMERLY [facility] MEDICARE Care Teams Psychiatrist Relationship Specialty Start Date End Date Valeriano Cornell MD PCP - General Internal Medicine 11/21/20
--- OUTSIDE RECORDS SUMMARY | 2024-09-29 13:02 | XMS_ITS | Encounter Summary ---
Author Organization [facility] Address [address] [place] [address] Care Team Providers Care Java J2Ee Architect Name Role Phone Valeriano Cornell MD Primary Care Provider Encounter Details Date Type Department Care Team (Late st Contact Info) Description 11/22/[address] 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 Gender Identity Not on file Sexual Orientation Not on file documented as of this encounter Plan of Treatment Not on file documented as of this encounter Procedures Procedure Name Priority Date/Time Associated Diagnosis Comments CARDIOLOGY DOCUMENT SCAN Routine 11/22/2020 documented in this encounter Results * SCAN - CARDIOLOGY (11/22/2020) Anatomical Region Laterality Modality Other Historical Provider [facility] Final Result documented in this encounter Visit Diagnoses Not on filedocumented in this encounter Care Teams Java J2Ee Architect Relationship Specialty Start Date End Date Valeriano Cornell MD PCP - General Internal Medicine 11/21/20 documented as of this encounter
--- OUTSIDE RECORDS SUMMARY | 2024-09-29 13:02 | XMS_ITS | Encounter Summary ---
Author Organization [facility] Healthcare Address [address] [place] [address] Care Team Providers Care Can Labeler Name Role Phone Valeriano Cornell MD Primary Care Provider Reason for Visit * Reason Comments Laceration Encounter Details Date Type Department Care Team (Late st Contact Info) Description 09/25/2024 6:38 PM BATTERY CONTAINER TESTER ALUMINUM - 09/25/2024 10:27 PM BATTERY CONTAINER TESTER ALUMINUM Emergency [facility] Emergency Department [address] [place] [address] Sary Hoang MD [facility] [address] [place], [place] [id number] Diagnosis unknown (Primary Dx); Nasal laceration, initial encounter Discharge Disposition: Discharge to home or self care Social History Tobacco Use Types Packs/Day Years [...] on file Legal Sex Female 2:02 AM BATTERY CONTAINER TESTER ALUMINUM Gender Identity Not on file Sexual Orientation Not on file documented as of this encounter Last Filed Vital Signs Vital Sign Reading Time Taken Comments Blood Pressure 160/79 09/25/2024 10:26 PM BATTERY CONTAINER TESTER ALUMINUM Pulse 65 09/25/2024 10:26 PM BATTERY CONTAINER TESTER ALUMINUM Temperature 36.6 ??C (97.9 ??F) 09/25/2024 5:42 PM CS T Respiratory Rate 16 09/25/2024 10:26 PM BATTERY CONTAINER TESTER ALUMINUM Oxygen Saturation 97% 09/25/2024 10:26 PM BATTERY CONTAINER TESTER ALUMINUM Inhaled Oxygen Concentration - - Weight 99.8 kg (220 lb) 09/25/2024 5:42 PM BATTERY CONTAINER TESTER ALUMINUM Height 162.6 cm (5' 4 ) 09/25/2024 5:42 PM BATTERY CONTAINER TESTER ALUMINUM Body Mass Index 37.76 09/25/2024 5:42 PM BATTERY CONTAINER TESTER ALUMINUM documented in this encounter Discharge Instructions * Discharge Instructions* Sary Hoang MD - 09/25/2024 9:29 PM BATTERY CONTAINER TESTER ALUMINUM Please take ibuprofen (600mg every 6 hours) and tylenol (1000mg every 6 hours) for pain. Please take oxycodone for pain that is not controlled by ibuprofen and tylenol. Please use Bacitracin twice a day for three days, then vaseline. Please use ocean nasal spray at least twice day to keep your nosemoist help your nose heal. Please take the ciprofloxacin as prescribed to prevent infection. Please call ENT to follow-up in 1-2 weeks. Please return to the Emergency Department if you have increasing pain, new redness or drainage. ERY CONTAINER TESTER ALUMINUM ERY CONTAINER TESTER ALUMINUM * Attachments The following attachments cannot be sent through Care Everywhere. * Care For Your Stitches (AfterCare(R) Instructions(ER/ED)) ([place]) documented in this encounter Medications at Time of Discharge bacitracin 500 unit/gram ointment Apply topically 2 (two) times a day 120 g 09/25/2024 ciprofloxacin (CIPRO) 500 mg tablet Take 1 tablet (500 mg total) by mouth 2 (two) times a day for 7 days 14 tablet 09/25/2024 oxyCODONE (ROXICODONE) 5 mg immediate release tabletIndication s:Pain Take 1 tablet (5 mg total) by mouth every 4 (four) hours as needed for pain 12 tablet 09/25/2024 sodium chloride (OCEAN) 0.65 % nasal spray Administer 1 spray into each nostril as needed for rhinitis 15 mL 09/25/2024 5 documented as of this encounter Ordered Prescriptions Prescription Sig Dispense Quantity Refills Last Filled Start Date End Date sodium chloride (OCEAN) 0.65 % nasal spray Administer 1 spray into each nostril as needed for rhinitis 15 mL 09/25/2024 5 oxyCODONE (ROXICODONE) 5 mg immediate release tabletIndications: Pain Take 1 tablet (5 mg total) by mouth every 4 (four) hours as needed for pain 12 tablet 09/25/2024 ciprofloxacin (CIPRO) 500 mg tablet Take 1 tablet (500 mg total) by mouth 2 (two) times a day for 7 days 14 tablet 09/25/2024 4 bacitracin 500 unit/gram ointment Apply topically 2 (two) times a day 120 g 09/25/2024 documented in this encounter Discharge Disposition Disposition Code Departure Means Destination Comment s Discharge to home or self care documented in this encounter ED Notes * Sary Hoang MD - 09/25/2024 10:03 PM CST HPI Chief Complaint Patient presents with ??? Laceration 69yo F with no sig Pmhx presenting with laceration to the nose. Patient notes that she was walking when she fell, hitting her nose on the ground. Initially presented to OSH, where review of notes at bedside reveals negative head CT, no nasal bone fracture. Patient noted to have a complex lacerationwith exposed cartilage. Transferred for Face evaluation and treatment. Patient received tdap, oxycodone at prior hospital. Patient History: There are no active problems to display for this patient. No past medical history on file. No past surgical history on file. No family history on file. Social History Tobacco Use ??? Smoking status: Not on file ??? Smokeless tobacco: Not on file Substance and Sexual Activity ??? Alcohol use: Not on file ??? Drug use: Not on file ??? Sexual activity: Not on file Social History Social History Narrative ??? Not on file Review of Systems Review of Systems Constitutional: Negative for chills and fever. HENT: Negative for ear pain and sore throat. Eyes: Negative for pain and visual disturbance. Respiratory: Negative for cough and shortness of breath. Cardiovascular: Negative for chest pain and palpitations. Gastrointestinal: Negative for abdominal pain and vomiting. Genitourinary: Negative for dysuria and hematuria. Musculoskeletal: Negative for arthralgias and back pain. Skin: Negative for color change and rash. Neurological: Negative for seizures and syncope. All other systems reviewed and are negative. Physical Exam ED Triage Vitals [09/25/24 1742] Temp Pulse Resp BP SpO2 36.6 ??C (97.9 ??F) 64 16 151/86 97 % Temp src Heart Rate Source Patient Position BP Location FiO2 (%) -- -- -- -- -- Height Height Method Weight Weight Method 1.626 m (5' 4 ) Stated 99.8 kg (220 lb) Stated Physical Exam Vitals and nursing note reviewed. Constitutional: Appearance: She is well-developed. HENT: Head: Normocephalic. Comments: Complex laceration to septum of nose. No septal hematoma bilaterally Eyes: Conjunctiva/sclera: Conjunctivae normal. Cardiovascular: Rate and Rhythm: Normal rate and regular rhythm. Heart sounds: No murmur heard. Pulmonary: Effort: Pulmonary effort is normal. No respiratory distress. Breath sounds: Normal breath sounds. Abdominal: Palpations: Abdomen is soft. Tenderness: There is no abdominal tenderness. Musculoskeletal: General: No swelling. Cervical back: Neck supple. Skin: General: Skin is warm and dry. Capillary Refill: Capillary refill takes less than 2 seconds. Neurological: Mental Status: She is alert. Psychiatric: Mood and Affect: Mood normal. MDM Medical Decision Making High concern for complex laceration, low concern for septal hematoma, concern for nasal bone fracture reduced in setting of negative OSH CT scan. PLAN: 1) review OSH notes 2) ENT consult Amount and/or Complexity of Data Reviewed Radiology: ordered. Risk OTC drugs. Prescription drug management. ED Course as of 09/25/242307 Time: 09/25 2308 Comment: I, Dr. Hoang, supervised laceration repair by ENT. By: Sary Hoang MD Final diagnoses: Nasal laceration, initial encounter Sary Hoang MD 09/25/242307 ERY CONTAINER TESTER ALUMINUM * Laureano Wilson RN - 09/25/2024 9:27 PM CST Bed: ED2- Expected date: Expected time: Means of arrival: Comments: Laureano Vincent RN 09/25/242126 ERY CONTAINER TESTER ALUMINUM * Mayelin Morris RN - 09/25/2024 7:02 PM CST Bed: ED2-29R Expected date: Expected time: Means of arrival: Comments: Ed3-2 Mayelin Morris RN 09/25/241901 ERY CONTAINER TESTER ALUMINUM * Laureano Wilson RN - 09/25/2024 6:38 PM CST Bed: ED3- Expected date: Expected time: Means of arrival: Comments: Laureano Haile RN 09/25/24 183 ERY CONTAINER TESTER ALUMINUM * Danae Hensley RN - 09/25/2024 5:43 PM CST Pt to ED from [facility] with complicated nose laceration w/ exposed cartilage s/p fall thisafternoon around 1230. States she tripped and fell onto the corner of her quilt cabinet. CT face negative for fx.No blood thinners. Denies pain at this time, given tylenol and oxycodone @ OSH. Tetanus UTD ERY CONTAINER TESTER ALUMINUM ERY CONTAINER TESTER ALUMINUM documented in this encounter Miscellaneous Notes * ED Pre-Arrival Note - Sommer Payton RN - 09/25/2024 4:39 PM BATTERY CONTAINER TESTER ALUMINUM Pre-Arrival Note Level 3 trauma transfer from [facility], pt fell and has facial trauma, complex lac to nose withexposed cartilage, coming for plastics consult, report called to Sommer Ovalle RN ERY CONTAINER TESTER ALUMINUM documented in this encounter Plan of Treatment Not on file documented as of this encounter Procedures Procedure Name Priority Date/Time Associated Diagnosis Comments NEURO CT OUTSIDE CONSULT Routine 09/25/2024 7:33 PM BATTERY CONTAINER TESTER ALUMINUM Diagnosis unknown NEURO CT OUTSIDE CONSULT Routine 09/25/2024 7:30 PM BATTERY CONTAINER TESTER ALUMINUM Diagnosis unknown POCT GLUCOSE DEVICE Routine 09/25/2024 6 :48 PM BATTERY CONTAINER TESTER ALUMINUM documented in this encounter Results * Neuro CT Outside Consult (09/25/2024 7:33 PM BATTERY CONTAINER TESTER ALUMINUM) Anatomical Region Laterality Modality N/A Computed Tomogra phy 09/26/2024 1:57 AM BATTERY CONTAINER TESTER ALUMINUM Impressions 09/26/2024 7:52 AM BATTERY CONTAINER TESTER ALUMINUM 1. ??No acute intracranial abnormality. 2. ??No [...] images may or may not represent the [place] source data set and thus may contain changes that may lower the accuracy of this second-opinion interpretation. Dictated by: Han Greenfield MD The radiology attending physician has personally reviewed this study, and had reviewed and/or edited this written report and agrees with it. Electronically signed by: Kam Boogie MD Narrative 09/26/2024 7:52 AM BATTERY CONTAINER TESTER ALUMINUM EXAMINATION: RADIOLOGY CONSULTATION ON OUTSIDE IMAGING STUDY STUDY INITIALLY PERFORMED: ??09/25/2024 at 2:27 PM at [facility]. ?? TYPE OF STUDY: Multiple CT images [...] INITIALLY PERFORMED: 09/25/2024 at 2:27 PM at [facility]. TYPE OF STUDY: Multiple CT images of [...] images may or may not represent the [place] source data set and thus may contain [...] Neuro CT Outside Consult (09/25/2024 7:30 PM BATTERY CONTAINER TESTER ALUMINUM) Anatomical Region Laterality Modality N/A Computed Tomogra phy 09/26/2024 1:57 AM BATTERY CONTAINER TESTER ALUMINUM Impressions 09/26/2024 7:52 AM BATTERY CONTAINER TESTER ALUMINUM 1. ??No acute intracranial abnormality. 2. ??No [...] images may or may not represent the [place] source data set and thus may contain changes that may lower the accuracy of this second-opinion interpretation. Dictated by: Han Greenfield MD The radiology attending physician has personally reviewed this study, and had reviewed and/or edited this written report and agrees with it. Electronically signed by: Kam Boogie MD Narrative 09/26/2024 7:52 AM BATTERY CONTAINER TESTER ALUMINUM EXAMINATION: RADIOLOGY CONSULTATION ON OUTSIDE IMAGING STUDY STUDY INITIALLY PERFORMED: ??09/25/2024 at 2:27 PM at [facility]. ?? TYPE OF STUDY: Multiple CT images [...] INITIALLY PERFORMED: 09/25/2024 at 2:27 PM at [facility]. TYPE OF STUDY: Multiple CT images of [...] images may or may not represent the [place] source data set and thus may contain [...] esult * POCT glucose (09/25/2024 6:48 PM BATTERY CONTAINER TESTER ALUMINUM) Glucose, POC 145 70 - 199 mg/dL Blood 09/25/2024 6:48 PM BATTERY CONTAINER TESTER ALUMINUM 09/25/2024 6:48 PM BATTERY CONTAINER TESTER ALUMINUM us Sary Hoang MD LAB POCT ORDERABLES - DEV ICE Final Result [facility] Department [place] [address] documented in this encounter Visit Diagnoses Diagnosis Diagnosis unknown- Primary Nasal laceration, initial encounter documented in this encounter Administered Medications Inactive Administered Medications - up to 3 most recent administrations Medication Order MAR Action Action Date Dose Rate Site ciprofloxacin (CIPRO) tablet 500 mg 500 mg, oral, Once, On 09/25/24 at 2130, For 1 dose, Administer ciprofloxacin at least 2 hours before or 6 hours after antacids (containing aluminum or magnesium), calcium or calcium containing foods such as milk or yogurt, MVI (containing iron or zinc), iron, zinc, sucralfate or buffered meds such as didanosine., Indications: Skin/Soft Tissue InfectionIndications:Skin/Soft Tissue Infection Given 09/25/2024 9:52 PM BATTERY CONTAINER TESTER ALUMINUM 500 mg fentaNYL (SUBLIMAZE) preservative free injection 50 mcg 50 mcg, intravenous, Once, On 09/25/24 at 2052, For 1 dose Given 09/25/2024 9:05 PM BATTERY CONTAINER TESTER ALUMINUM 50 mcg lidocaine-EPINEPHrine (XYLOCAINE with EPI) 1 %-1:200,000 preservative free injection 10 mL 10 mL, infiltration, Once, On 09/25/24 at 1928, For 1 dose, Indications: Administration of Local AnesthesiaIndications:Administrat ion of Local Anesthesia Given 09/25/2024 8:00 PM BATTERY CONTAINER TESTER ALUMINUM 10 mL oxyCODONE (ROXICODONE) tablet 5 mg 5 mg, oral, Once, On 09/25/24 at 2215, For 1 dose, Indications: PainIndications:Pain Given 09/25/2024 10:17 PM BATTERY CONTAINER TESTER ALUMINUM 5 mg documented in this encounter Active and Recently Administered Medications Times are shown in BATTERY CONTAINER TESTER ALUMINUM. Scheduled Medication Order 09/23/2024 09/24/2024 09/25/2024 ciprofloxacin (CIPRO) tablet 500 mg (COMPLETED) 500 mg, oral, Once, On 09/25/24 at 2130, For 1 dose, Administer ciprofloxacin at least 2 hours before or 6 hours after antacids (containing aluminum or magnesium), calcium or calcium containing foods such as milk or yogurt, MVI (containing iron or zinc), iron, zinc, sucralfate or buffered meds such as didanosine., Indications: Skin/Soft Tissue Infection 2151 (Given - Provid er: Mita Villa) fentaNYL (SUBLIMAZE) preservative free injection 50 mcg (COMPLETED) 50 mcg, intravenous, Once, On 09/25/24 at 2052, For 1 dose 2104 (Given - Provid er: Mita Villa) lidocaine-EPINEPHrine (XYLOCAINE with EPI) 1 %-1:200,000 preservative free injection 10 mL (COMPLETED) 10 mL, infiltration, Once, On 09/25/24 at 1928, For 1 dose, Indications: Administration of Local Anesthesia 1999 (Given - Provid er: Karin Bliss RN) oxyCODONE (ROXICODONE) tablet 5 mg (COMPLETED) 5 mg, oral, Once, On 09/25/24 at 2215, For 1 dose, Indications: Pain 2217 (Given - Provid er: Mita Villa) documented in this encounter Orders Lab Orders Without Results Count Last Ordered D ate First Ordered Date POCT GLUCOSE DEVICE 1 09/25/2024 Nursing Count Last Ordered Date First Orde red Date MISCELLANEOUS NURSING CARE ORDER (SPECIFY) 1 09/25/2024 Consult Count Last Ordered Date First Orde red Date IP CONSULT TO ENT 1 09/25/2024 documented in this encounter Care Teams Can Labeler Relationship Specialty Start Date End Date Valeriano Cornell MD PCP - General Internal Medicine 11/21/20 documented as of this encounter
--- OUTSIDE RECORDS SUMMARY | 2024-09-29 13:02 | XMS_ITS | Encounter Summary ---
Author Organization [facility] Address [address] [place] [address] Care Team Providers Care Mica Miner Blasting Name Role Phone Tiago Weinberg MD Primary Care Provider Jelly Heart Unavailable Unavailable Encounter Details Date Type Department Care Team (Late st Contact Info) Description 07/14/2014 Orders Only [facility] Medical [facility] - Family Medicine [address] [place] [id number] Jelly Heart APRN-CNP RETIRED Abnormal mammogram Social History Tobacco Use Types Packs/Day Years [...] documented as of this encounter Visit Diagnoses Diagnosis Abnormal mammogram- Primary Abnormal mammogram, unspecified documented in this encounter Care Teams Mica Miner Blasting Relationship Specialty Start Date End Date Tiago Weinberg MD [address] [address] PCP - General Internal Medicine 06/01/13 Jelly Heart APRN-CNP [address] [address] Nurse Practitioner 07/06/14 documented as of this encounter
--- OUTSIDE RECORDS SUMMARY | 2024-09-29 13:02 | XMS_ITS | Referral Summary ---
Author Organization [facility] [address] Address [address] [place] [address] Care Team Providers Care Edge Plugger Name Role Phone Valeriano Cornell MD Primary Care Provider [phone] Encounters Date Type Department Care Team Description 09/25/2024 6:38 PM BEHAVIORAL HEALTH CONSULTANT - 09/25/2024 10:27 PM [facility] Emergency [facility] Emergency Department [address] [place] [address] Sary Hoang MD Diagnosis unknown (Primary Dx); Nasal laceration, initial encounter Discharge Disposition: Discharge to home or self care from Last 3 Months Allergies No known active allergies Medications bacitracin [...] rhinitis 15 mL 4 09/25/20 25 Active Social History Tobacco Use Types Packs/Day Years [...] on file Legal Sex Female 2:02 AM BEHAVIORAL HEALTH CONSULTANT Gender Identity Not on file Sexual Orientation Not on file Last Filed Vital Signs Vital Sign Reading Time Taken Comments Blood Pressure 160/79 09/25/2024 10:26 PM BEHAVIORAL HEALTH CONSULTANT Pulse 65 09/25/2024 10:26 PM BEHAVIORAL HEALTH CONSULTANT Temperature 36.6 ??C (97.9 ??F) 09/25/2024 5:42 PM CS T Respiratory Rate 16 09/25/2024 10:26 PM BEHAVIORAL HEALTH CONSULTANT Oxygen Saturation 97% 09/25/2024 10:26 PM BEHAVIORAL HEALTH CONSULTANT Inhaled Oxygen Concentration - - Weight 99.8 kg (220 lb) 09/25/2024 5:42 PM BEHAVIORAL HEALTH CONSULTANT Height 162.6 cm (5' 4 ) 09/25/2024 5:42 PM BEHAVIORAL HEALTH CONSULTANT Body Mass Index 37.76 09/25/2024 5:42 PM BEHAVIORAL HEALTH CONSULTANT Plan of Treatment Not on file Procedures Procedure Name Priority Date/Time Associated Diagnosis Comments NEURO CT OUTSIDE CONSULT Routine 09/25/2024 7:33 PM BEHAVIORAL HEALTH CONSULTANT Diagnosis unknown NEURO CT OUTSIDE CONSULT Routine 09/25/2024 7:30 PM BEHAVIORAL HEALTH CONSULTANT Diagnosis unknown POCT GLUCOSE DEVICE Routine 09/25/2024 6 :48 PM BEHAVIORAL HEALTH CONSULTANT SCREENING MAMMOGRAM BILATERAL W AYAZ Routine 04/29/2016 11:26 AM CDT from Last 3 Months or Most Recently Relevant to Health Maintenance Results * Neuro CT Outside Consult (09/25/2024 7:33 PM BEHAVIORAL HEALTH CONSULTANT) Anatomical Region Laterality Modality N/A Computed Tomogra phy 09/26/2024 1:57 AM BEHAVIORAL HEALTH CONSULTANT Impressions 09/26/2024 7:52 AM BEHAVIORAL HEALTH CONSULTANT 1. ??No acute intracranial abnormality. 2. ??No [...] images may or may not represent the [place] source data set and thus may contain changes that may lower the accuracy of this second-opinion interpretation. Dictated by: Han Greenfield MD The radiology attending physician has personally reviewed this study, and had reviewed and/or edited this written report and agrees with it. Electronically signed by: Kam Boogie MD Narrative 09/26/2024 7:52 AM BEHAVIORAL HEALTH CONSULTANT EXAMINATION: RADIOLOGY CONSULTATION ON OUTSIDE IMAGING STUDY STUDY INITIALLY PERFORMED: ??09/25/2024 at 2:27 PM at [facility]. ?? TYPE OF STUDY: Multiple CT images of the head and cervical spine without contrast are provided at the time of this interpretation. The protocol was adequate to address the clinical question. The outside final report was not available at the time of this second opinion interpretation. TYPE OF CONSULTATION: ??Consult on outside imaging study with images submitted through [employer]. DATE OF CONSULTATION: 09/26/2024 1:46 AM. HISTORY: [...] INITIALLY PERFORMED: 09/25/2024 at 2:27 PM at [facility]. TYPE OF STUDY: Multiple CT images of the head and cervical spine without contrast are provided at the time of this interpretation. The protocol was adequate to address the clinical question. The outside final report was not available at the time of this second opinion interpretation. TYPE OF CONSULTATION: Consult on outside imaging study with images submitted through [employer]. DATE OF CONSULTATION: 09/26/2024 1:46 AM. HISTORY: [...] images may or may not represent the [place] source data set and thus may contain [...] Neuro CT Outside Consult (09/25/2024 7:30 PM BEHAVIORAL HEALTH CONSULTANT) Anatomical Region Laterality Modality N/A Computed Tomogra phy 09/26/2024 1:57 AM BEHAVIORAL HEALTH CONSULTANT Impressions 09/26/2024 7:52 AM BEHAVIORAL HEALTH CONSULTANT 1. ??No acute intracranial abnormality. 2. ??No [...] images may or may not represent the [place] source data set and thus may contain changes that may lower the accuracy of this second-opinion interpretation. Dictated by: Han Greenfield MD The radiology attending physician has personally reviewed this study, and had reviewed and/or edited this written report and agrees with it. Electronically signed by: Kam Boogie MD [facility] 09/26/2024 7:52 AM BEHAVIORAL HEALTH CONSULTANT EXAMINATION: RADIOLOGY CONSULTATION ON OUTSIDE IMAGING STUDY STUDY INITIALLY PERFORMED: ??09/25/2024 at 2:27 PM at [facility]. ?? TYPE OF STUDY: Multiple [...] INITIALLY PERFORMED: 09/25/2024 at 2:27 PM at [facility]. TYPE OF STUDY: Multiple CT [...] images may or may not represent the [place] source data set and thus may contain [...] esult * POCT glucose (09/25/2024 6:48 PM BEHAVIORAL HEALTH CONSULTANT) Glucose, POC 145 70 - 199 mg/dL Blood 09/25/2024 6:48 PM BEHAVIORAL HEALTH CONSULTANT 09/25/2024 6:48 PM BEHAVIORAL HEALTH CONSULTANT us Sary Hoang MD LAB POCT ORDERABLES - DEV ICE Final Result [facility] Department [place] [address] * Screening Mammogram Bilateral W Ayaz (04/29/2016 [...] ?? Rey Cabrera M.D. ab/:05/07/2016 10:33:03 ?? Market Research Coordinator: Sarah Kelsey)(Declan), [facility] letter sent: Additional Imaging ?? Reading location: [...] mammogram, 07/13/2014 mammogram, and 06/04/2013 mammogram - [facility]. ?? BREAST TISSUE: There are scattered [...] 07/20/2014 mammogram,07/13/2014 mammogram, and 06/04/2013 mammogram - [facility]. BREAST TISSUE: There are scattered areas [...] be contacted. Rey Cabrera M.D. ab/:05/07/2016 10:33:03 Market Research Coordinator: Sarah Kelsey)(Declan), [facility] letter sent: Additional Imaging Reading location: BI-RADS: 0 Additional Imaging Evaluation Needed [EOD] us Jazmine BROWNE IMG MAMMO PROCEDURES Final Result from Last 3 Months or Most Recently Relevant to Health Maintenance Insurance MEDICARE [employer] [facility] MEDICARE [facility] MEDICARE Care Teams Edge Plugger Relationship Specialty Start Date End Date Valeriano Cornell MD PCP - General Internal Medicine 11/21/20
--- OUTSIDE RECORDS SUMMARY | 2024-09-29 13:02 | XMS_ITS | Encounter Summary ---
Author Organization [facility] Address [address] [facility] [place] [address] Care Team Providers Care Director Of Optimization Name Role Phone Tiago Weinberg MD Primary Care Provider Jelly Heart Unavailable Unavailable Reason for Visit * Reason Comments Sales Service Technician Routine Exam Encounter Details Date Type Department Care Team (Latest Contact Info) Description 07/13/2014 2:00 PM CDT Office Visit [facility] Medical [facility] - Family Medicine [address] [place] [phone] Jelly Heart APRN-CNP RETIRED Routine gynecological examination (Primary Dx); Menopause; Decreased libido Social History Tobacco Use Types Packs/Day Years [...] Sign Reading Time Taken Comments Blood Pressure 122/70 07/13/2014 1:50 PM CDT Pulse 64 07/13/2014 1:50 PM CDT Temperature 36.7 ??C (98.1 ??F) 07/13/2014 1:50 PM CD T Respiratory Rate 16 07/13/2014 1:50 PM CDT Oxygen Saturation 95% 07/13/2014 1:50 PM CDT Inhaled Oxygen Concentration - - Weight 98.9 kg (218 lb) 07/13/2014 1:50 PM CDT Height 162.6 cm (5' 4 ) 07/13/2014 1:50 PM CDT Body Mass Index 37.42 07/13/2014 1:50 PM CDT documented in this encounter Patient Instructions * Patient Instructions* Jelly Heart APRN-CNP - 07/13/2014 2:42 PM CDT SBE Mammogram yearly Continue Testosterone Cream; refill called to [facility]. documented in this encounter Progress Notes * Ines Wynn RN - 07/18/2014 12:39 PM CDTQuick Note: Number no longer in service, will send letter. * Jelly Heart APRN-CNP - 07/15/2014 3:54 PM CDTQuick Note: Normal, repeat one year documented in this encounter Miscellaneous Notes * Addendum Note - Ines Wynn RN - 07/13/2014 2:47 PM CDTAddended by: INES WYNN on: 07/13/2014 02:47 PM Modules accepted: Orders documented in this encounter Plan of Treatment Not on file documented as of this encounter Procedures Procedure Name Priority Date/Time Associated Diagnosis Comments PAP IG RFLX HPV ASCU Routine 07/13/2014 2:47 PM CDT Routine gynecological examination documented in this encounter Results * PAP SMEAR IG RFLX HPV ASCU (PO REF LAB) (07/13/2014 2:47 PM CDT) Diagnosis [facility] ACCOUNT BILL Comment:NEGATIVE FOR INTRAEP ITHELIAL LESION AND MALIGNANCY. Specimen Adequacy [facility] ACCOUNT BILL Comment: Satisfactory for evaluation. ??Endocervical and/or squamous metaplastic cells (endocervical component) are present. Clinician Provided ICD9 [facility] ACCOUNT BILL Comment: V72.31 ; Routine gynecological examination V49.81 ; Asymptomatic postmenopausal status (age-related) (natural) 799.81 ; Decreased libido Performed by [facility] ACCOUNT BILL Comment:Divya Schmitt, Cytotec hnologist ([facility]) Comment . [facility] ACCOUNT BILL Note [facility] ACCOUNT BILL Comment: The Pap smear is a screening test designed to aid in the detection of premalignant and malignant conditions of the uterine cervix. ??It is not a diagnostic procedure and should not be used as the sole means of detecting cervical cancer. ??Both false-positive and false-negative reports do occur. ? . IGLBP CPT Code Automation [facility] ACCOUNT BILL Comment: This liquid based ThinPrep(R) pap test was screened with the use of an image guided system. Note [facility] ACCOUNT BILL Comment: The HPV DNA reflex criteria were not met with this specimen result therefore, no HPV testing was performed. ? . MICROSCOPIC CYTOLOGIC EXAMINATION OF SMEAR OF SPECIMEN FROM FEMALE GENITAL TRACT PREPARED USING PAPANICOLAOU TECHNIQUE / Unknown 07/13/2014 2:47 PM CDT 07/14/2014 3:16 AM CDT Narrative [facility] ACCOUNT BILL - 07/15/2014 2:29 PM CDT Source.............Cervical;Endocervical Other..............Post Menopausal No. of containers..01 CYTYC Thin Prep Vial Resulting Agency Comment [facility] [address] [place] [address] ??Aron DAN [phone] Jelly Rakey CLAY PIGEON LOADER-MATHEMATICS EDUCATION PROFESSOR LAB - PATHOLOGY/CYTO LOGY ORDERABLES [facility] ACCOUNT BILL documented in this encounter Visit Diagnoses Diagnosis Routine gynecological examination- Primary Menopause Symptomatic menopausal or female climacteric states Decreased libido documented in this encounter Care Teams Director Of Optimization Relationship Specialty Start Date End Date Tiago Weinberg MD [address] [address] PCP - General Internal Medicine 06/01/13 Jelly Heart APRN-CNP [address] [address] Nurse Practitioner 07/06/14 documented as of this encounter
--- OUTSIDE RECORDS SUMMARY | 2024-09-29 13:02 | XMS_ITS | Encounter Summary ---
Author Organization [facility] Address [address] [facility] [place] [address] Care Team Providers Care Sewing Machine Repairer Name Role Phone Valeriano Cornell MD Primary Care Provider [phone] Reason for Visit * Cardiology (Routine) - Closed Specialty Diagnoses / Procedures Referred By Contac t Referred To Contact Diagnoses Chest pain, unspecified type Procedures MCT Mobile Cardiac Telemetry Event Monitor Valeriano Cornell MD Phone: tel: fax: [facility] Referral ID Status Reason Start Date Expiration Date Visits Re quested Visits Authorized [id number] Closed 11/21/2020 12/21/2021 1 1 Encounter Details Date Type Department Care Team (Latest Contact Info) Description 11/27/2020 1:30 PM SHRINK PIT SUPERVISOR Ancillary Procedure [facility] Medical [facility] Cardiology [address] [place] [address] Chest pain, unspecified type Social History Tobacco Use Types Packs/Day Years Used Date Smoking Tobacco: Never Assessed Comments Unknown Sex and Gender Information Value Date Recorded Sex Assigned at Not on file Legal Sex Female 2:02 AM SHRINK PIT SUPERVISOR Gender Identity Not on file Sexual Orientation Not on file documented as of this encounter Plan of Treatment Pending Results Name Type Priority Associated Diagnoses Date /Time MCT Mobile Cardiac Telemetry Event Monitor Cardiac Services Routine Chest pain, unspecified type 11/27/2020 1:21 PM SHRINK PIT SUPERVISOR documented as of this encounter Visit Diagnoses Diagnosis Chest pain, unspecified type documented in this encounter Care Teams Sewing Machine Repairer Relationship Specialty Start Date End Date Valeriano Cornell MD PCP - General Internal Medicine 11/21/20 documented as of this encounter
--- OUTSIDE RECORDS SUMMARY | 2024-09-29 13:02 | XMS_ITS | Encounter Summary ---
Author Organization [facility] Address [address] [facility] [address] [place] [address] Care Team Providers Care Impregnator Electrolytic Capacitors Name Role Phone Valeriano Cornell MD Primary Care Provider [phone] Encounter Details Date Type Department Care Team (Late st Contact Info) Description 12/12/2020 Documentation [facility] [address] [facility] [address] [facility] [address] [place] [phone] Valeriano Younger MD [address] [facility] [address] [place], [place] [id number] Social History Tobacco Use Types Packs/Day Years Used Date Smoking Tobacco: Never Assessed Comments Unknown Sex and Gender Information Value Date Recorded Sex Assigned at Not on file Legal Sex Female 2:02 AM STRAWHAT SIZER Gender Identity Not on file Sexual Orientation Not on file documented as of this encounter Progress Notes * Valeriano Younger MD - 12/12/2020 4:49 PM CST AMBULATORY VIDEO PRODUCTION SPECIALIST REPORT Patient Name: Kristine García Date of : 1955 Requesting Physician: Kraig Date of interpretation: 12/12/20 Type of monitor : Event monitor Date of the study/Enrollment period: Indication: Chest pain Quality of the study: Favorable Interpretation: The basic cardiac rhythm is sinus with normal LA QRS and QT interval. The heart rate varies from a minimum of 50 to a maximum of 120. The average rate was 62 beats per minute. There were no significant pauses identified there were no abnormalities of AV conduction. The patient had low- frequency ventricular and atrial ectopics during the monitor. The PVCs were 1% of the complexes the PACs were less than 1%. There were no runs of ventricular arrhythmias identified there were no runs of atrial arrhythmias there was no evidence of atrial fibrillation. During the monitor there were 9 rhythm strips submitted for review. None of these occurred with symptoms. On 11/28/2020 at 3:28 a.m. there was a strip with sinus rhythm with 1 PVC. The remainder of the strips were daily recordings with heart rates varying between 58 and 70 beats per minute with no ectopic activity of any kind. Conclusions: 1. Essentially unremarkable event recorder demonstrating normal sinus rhythm, normal heart rate variability and very low frequency ectopic activity with no symptoms Voice recognition software was used to complete this document, therefore, picture enlarger variances may occur. Valeriano Younger MD [facility] 12/12/20 WHAT SIZER documented in this encounter Plan of Treatment Not on file documented as of this encounter Visit Diagnoses Not on filedocumented in this encounter Care Teams Impregnator Electrolytic Capacitors Relationship Specialty Start Date End Date Valeriano Cornell MD PCP - General Internal Medicine 11/21/20 documented as of this encounter
--- OUTSIDE RECORDS SUMMARY | 2024-09-29 13:02 | XMS_ITS | Referral Summary ---
Author Organization [facility] [employer] Address [address] [facility] [place] [address] Care Team Providers Care Table Games Supervisor Name Role Phone Tiago Weinberg MD Primary Care Provider Jelly Heart APRN-TERMINAL PRESS OPERATOR Unavailable Unavailable Source Comments [facility],non-owned Affiliates and Associated Physician Practices is amultiple site organization consisting of ambulatory clinics and hospital sitesin [place], [place], [place] and [place]. This disclosure is being madepursuant to the Care Everywhere program and may not contain all information available regarding this patient. Last updated 18.[facility] [employer] Allergies No known active allergies Medications * Be aware that medications may not be up to date on this document. Alwaysverify current medications with the patient. Medication Sig Dispensed Refills Start Date End Date Status propranolol CR 24hr (INDERAL LA) 120 MG capsule Take 120 mg by mouth once daily. Active SUMAtriptan (IMITREX) 50 MG tablet Take 50 mg by mouth once as needed. Active Active Problems Problem Noted Date Diagnosed Date Migraine 06/04/2013 Decreased libido 06/04/2013 Menopause 06/04/2013 Social History Tobacco Use Types Packs/Day Years [...] Mass Index 37.42 07/13/2014 1:50 PM CDT Plan of Treatment Not on file Procedures Procedure Name Priority Date/Time Associated Diagnosis Comments MAMMO LEFT DIAGNOSTIC Routine 07/20/2014 12:59 PM CDT Abnormal mammogram from Last 3 Months or Most Recently Relevant to Health Maintenance Results * MAMMO DIAG DIRECT DIGITAL IMAGE UNIL LEFT (07/20/2014 12:59 PM CDT) Anatomical Region Laterality Modality Left Mammography 07/20/2014 1:15 PM CDT Impressions 07/20/2014 4:46 PM CDT Summation shadow. BI-RADS category 2 - recommendation routine annual [...] 6 - known biopsy proven cancer. Narrative 07/20/2014 4:46 PM CDT UNILATERAL LEFT DIAGNOSTIC MAMMOGRAM WITH CAD 07/20/2014 Clinical history: Abnormal mammogram. FINDINGS: Left diagnostic views demonstrate the area in question compresses with compression. There is no underlying nodule of concern. Jelly MATIAS MAMMO ORDERABLES from Last 3 Months or Most Recently Relevant to Health Maintenance Care Teams Table Games Supervisor Relationship Specialty Start Date End Date Tiago Weinberg MD [address] [address] PCP - General Internal Medicine 06/01/13 Jelly Heart APRN-CNP [address] [address] Nurse Practitioner 07/06/14
--- OUTSIDE RECORDS SUMMARY | 2024-09-29 13:02 | XMS_ITS | Encounter Summary ---
Author Organization [facility] Address [address] [facility] [place] [address] Care Team Providers Care Gunner Mate Name Role Phone Tiago Weinberg MD Primary Care Provider Reason for Visit * Reason Comments Complete Physical Exam pap Encounter Details Date Type Department Care Team (Latest Contact Info) Description 06/04/2013 10:00 AM CDT Office Visit [facility] Medical [facility] - Family Medicine [address] [place] [phone] Jelly Heart APRN-SOFTWARE VALIDATION TECHNICIAN RETIRED Routine gynecological examination (Primary Dx); Menopause; Decreased libido; Migraine Social History Tobacco Use Types Packs/Day Years [...] Sign Reading Time Taken Comments Blood Pressure 143/90 06/04/2013 10:09 AM CDT Pulse 67 06/04/2013 10:09 AM CDT Temperature 36.8 ??C (98.2 ??F) 06/04/2013 10:09 AM C DT Respiratory Rate 16 06/04/2013 10:09 AM CDT Oxygen Saturation 95% 06/04/2013 10:09 AM CDT Inhaled Oxygen Concentration - - Weight 98.4 kg (217 lb) 06/04/2013 10:09 AM CDT Height 162.6 cm (5' 4 ) 06/04/2013 10:09 AM CDT Body Mass Index 37.25 06/04/2013 10:09 AM CDT documented in this encounter Patient Instructions * Patient Instructions* Jelly Heart NP - 06/04/2013 12:31 PM CDT Discussed treatment options. Will increase Testosterone dose. Discussed adding Progesterone vs trial of Effexor 37.5 mg. Rx for Testosterone cream and Progesterone cream to [facility] in [place], [place]; will try this first prior to Effexor. [facility]; pt aware there is a caution with Imitrex and Effexor. Call with any problems. Mammogram yearly SBE documented in this encounter Progress Notes * Marimar Roberts RN - 06/08/2013 2:00 PM CDTQuick Note: Pt aware * Jelly Heart NP - 06/07/2013 4:18 PM CDTQuick Note: Normal, repeat one year documented in this encounter Plan of Treatment Not on file documented as of this encounter Procedures Procedure Name Priority Date/Time Associated Diagnosis Comments PAP IG RFLX HPV ASCU Routine 06/04/2013 10:47 AM CDT Routine gynecological examination documented in this encounter Results * PAP SMEAR IG RFLX HPV ASCU (PO REF LAB) (06/04/2013 10:47 AM CDT) Diagnosis [facility] ACCOUNT BILL Comment:NEGATIVE FOR INTRAEP ITHELIAL LESION AND MALIGNANCY. Specimen Adequacy [facility] ACCOUNT BILL Comment: Satisfactory for evaluation. ??Endocervical and/or squamous metaplastic cells (endocervical component) are present. Clinician Provided ICD9 [facility] ACCOUNT BILL Comment:V72.31 ; Routine cleater ecological examination Performed by [facility] ACCOUNT BILL Comment:Nuria Louie, Cyto technologist (ASCP) Comment . [facility] ACCOUNT BILL Note [facility] [...] TRACT PREPARED USING PAPANICOLAOU TECHNIQUE / Unknown 06/04/2013 10:47 AM CDT 06/05/2013 2:57 AM CDT Narrative [facility] ACCOUNT BILL - 06/07/2013 4:20 PM CDT Source.............Endocervical No. of containers..01 CYTYC Thin Prep Vial Resulting Agency Comment [facility] [address] [facility] ??Aron DAN [phone] Jelly Heart DESIGNER-SOFTWARE VALIDATION TECHNICIAN LAB - PATHOLOGY/CYTO LOGY ORDERABLES [facility] ACCOUNT BILL documented in this encounter Visit Diagnoses Diagnosis Routine gynecological examination- Primary Menopause Symptomatic menopausal or female climacteric states Decreased libido Migraine Migraine, unspecified, without mention of intractable migraine without mention of status migrainosus documented in this encounter Care Teams Gunner Mate Relationship Specialty Start Date End Date Tiago Weinberg MD [address] [address] PCP - General Internal Medicine 06/01/13 documented as of this encounter
--- OUTSIDE RECORDS SUMMARY | 2024-09-29 13:02 | XMS_ITS | Clinical Summary ---
Author Organization [facility] Address [address] [facility] [place] [address] Care Team Providers Care Locks Inspector Name Role Phone Tiago Weinberg MD Primary Care Provider Jelly Heart APRN-STRUCTURAL STEEL EQUIPMENT ERECTOR Unavailable Unavailable Source Comments [facility],non-owned Affiliates and Associated Physician Practices is amultiple site organization consisting of ambulatory clinics and hospital sitesin [place], [place], [place] and [place]. This disclosure is being madepursuant to the Care Everywhere program and may not contain all information available regarding this patient. Last updated 18.[facility] Allergies No known active allergies Medications * [...] Migraine 06/04/2013 Decreased libido 06/04/2013 Menopause 06/04/2013 Family History Medical History Relation Name Comments Cancer - Other Father skin, squamou s Heart Disease Father Heart Disease Maternal Grandfather Heart Disease Maternal Grandmother Heart Disease Mother Heart Disease Paternal Grandfather Heart Disease Paternal Grandmother Cancer - Breast Neg Hx Cancer - Ovarian Neg Hx Relation Name Status Comments Father Maternal Grandfather Maternal Grandmother Mother Paternal Grandfather Paternal Grandmother Social History Tobacco Use Types Packs/Day Years [...] 07/13/2014 1:50 PM CDT Plan of Treatment Health Maintenance Due Date Last Done Comments BONE DENSITY TESTING 1955 COLOGUARD (AGES 45-75) - COL ON CA SCREENING 1955 COLON MONITORING 1955 COLONOSCOPY - COLON CA SCREENING 1955 CT COLONOGRAPHY - COLON CA SCREENING 1955 Colorectal Cancer Screening 1955 FIT - COLON CA SCREENING 1955 FLEX SIG - COLON CA SCREENING 1955 LIPID TESTING 1955 HEPATITIS C SCREENING 09/02/1971 DTAP/TDAP/TD VACCINES (1 - Tdap) 1972 ZOSTER VACCINE (1 of 2) 2003 MAMMOGRAM 07/20/2016 07/20/2014, 07/13/2014, 06/04/2013 PNEUMOCOCCAL VACCINE 65+ (1 of 1 - PCV) 2018 DEPRESSION SCREENING 10/13/2023 COVID-19 VACCINE ( - 2023-2 5 season) 2024 INFLUENZA VACCINE (#1) 2024 Respiratory Syncytial Virus (RSV) Vaccine Pt: or over 60 yrs (1 - 1-dose 75+ series) 2028 HEPATITIS B VACCINE Aged Out No longe r eligible based on patient's age to complete this topic HIB VACCINE Aged Out No longer eligi ble based on patient's age to complete this topic HPV VACCINE Aged Out No longer eligi ble based on patient's age to complete this topic MENINGOCOCCAL VACCINE Aged Out No dat joselito eligible based on patient's age to complete this topic Procedures Procedure Name Priority Date/Time Associated Diagnosis [...] is no underlying nodule of concern. Jelly Heart VACATION SALES ADVISOR-STRUCTURAL STEEL EQUIPMENT ERECTOR MAMMO ORDERABLES from Last 3 Months or Most Recently Relevant to Health Maintenance Care Teams Locks Inspector Relationship Specialty Start Date End Date Tiago Weinberg MD [address] [id number] PCP - General Internal Medicine 06/01/13 Jelly Heart APRN-STRUCTURAL STEEL EQUIPMENT ERECTOR [address] [address] Nurse Practitioner 07/06/14
--- OUTSIDE RECORDS SUMMARY | 2024-09-29 13:02 | XMS_ITS | Encounter Summary ---
Author Organization [facility] Address [address] [facility] [place] [address] Care Team Providers Care Oxygen Therapy Teacher Name Role Phone Tiago Weinberg MD Primary Care Provider Jelly Heart Unavailable Unavailable Reason for Referral * Radiology Services - Closed Specialty Diagnoses / Procedures Referred By Osman elam Referred To Contact Diagnoses Abnormal mammogram Procedures MAMMO DIAG DIRECT DIGITAL IMAGE UNIL LEFT MAMMO DIAG DIRECT DIGITAL IMAGE UNIL LEFT Jelly Heart APRN-CNP RETIRED Referral ID Status Reason Start Date Expiration Date Visits Re quested Visits Authorized [id number] Closed 07/20/2014 01/16/2015 1 1 Reason for Visit * Hospital - Outpatient (Routine) - Closed Specialty Diagnoses / Procedures Referred By Osman elam Referred To Contact Mammography Procedures Diag Carmine Left Breast Tiago Weinberg MD [facility] [address] [address] [facility] Mammo [address] [place] [address] Referral ID Status Reason Start Date Expiration Date Visits Re quested Visits Authorized [id number] Closed 07/20/2014 01/16/2015 1 1 Encounter Details Date Type Department Care Team (Latest Contact Info) Description 07/20/2014 12:51 PM CDT - 07/20/2014 11:59 PM CDT Hospital Encounter [facility] Breast Care [address] [place] [address] Tiago Weinberg MD [address] [facility] [address] [id number] Mammography Discharge Disposition: Home or Self Care [...] Progress Notes * Ines Colón RN - 07/21/2014 11:19 AM CDTQuick Note: Pt informed. documented in this encounter Plan of Treatment Not on file documented as of this encounter Procedures Procedure Name Priority Date/Time Associated Diagnosis Comments MAMMO LEFT DIAGNOSTIC Routine 07/20/2014 12:59 PM CDT Abnormal mammogram documented in this encounter Results * MAMMO DIAG DIRECT DIGITAL IMAGE [...] nodule of concern. Jelly MATIAS MAMMO ORDERABLES documented in this encounter Visit Diagnoses Diagnosis Abnormal mammogram Abnormal mammogram, unspecified documented in this encounter Care Teams Oxygen Therapy Teacher Relationship Specialty Start Date End Date Tiago Weinberg MD [address] [id number] PCP - General Internal Medicine 06/01/13 Jelly Heart APRN-CNP [address] [facility] [address] [address] Nurse Practitioner 07/06/14 documented as of this encounter
--- OUTSIDE RECORDS SUMMARY | 2024-09-29 13:02 | XMS_ITS | Encounter Summary ---
Author Organization [facility] Address [address] [place] [address] Care Team Providers Care Virtualization Engineer Name Role Phone Tiago Weinberg MD Primary Care Provider Jelly Heart Unavailable Unavailable Encounter Details Date Type Department Care Team (Late st Contact Info) Description 06/07/2015 Telephone [facility] Medical [facility] - Family Medicine [address] [place] [phone] Jelly Heart APRN-CNP RETIRED Social History Tobacco Use Types Packs/Day Years [...] encounter Miscellaneous Notes * Telephone Encounter - Ariela Christian - 06/07/2015 11:26 AM CDT Please call Kristine at [phone] about a refill documented in this encounter Plan of Treatment Not on file documented as of this encounter Visit Diagnoses Not on filedocumented in this encounter Care Teams Virtualization Engineer Relationship Specialty Start Date End Date Tiago Weinberg MD [address] [id number] PCP - General Internal Medicine 06/01/13 Jelly Heart APRN-CAR DETAILER [address] [address] Nurse Practitioner 07/06/14 documented as of this encounter
--- OUTSIDE RECORDS SUMMARY | 2024-09-29 13:02 | XMS_ITS | Patient Health Summary ---
Author Organization [facility] Address [address] [address] Care Team Providers Care Physical Biochemist Name Role Phone Tiago Weinberg MD Primary Care Provider Jelly Heart APRN-CHIEF CONTROLLER STATION Unavailable Unavailable Note from [facility],non-owned Affiliates and Associated Physician Practices is amultiple site organization consisting of ambulatory clinics and hospital sitesin [place], [place], [place] and [place]. This disclosure is being madepursuant to the Care Everywhere program and may not contain all information available regarding this patient. Last updated 18.[facility] Allergies No known active allergies Medications * Be aware that medications may not be up to date on this document. Alwaysverify current medications with the patient. * propranolol CR 24hr (INDERAL LA) 120 MG capsule Take 120 mg by mouth once daily. * SUMAtriptan (IMITREX) 50 MG tablet Take 50 mg by mouth once as needed. Active Problems Problem Noted Date Diagnosed Date [...] Mass Index 37.42 07/13/2014 1:50 PM CDT Procedures * MAMMO LEFT DIAGNOSTIC(Performed 07/20/2014) Performed for Abnormal mammogram * PAP IG RFLX HPV ASCU(Performed 07/13/2014) Performed for Routine gynecological examination * MAMMO SCREEN SPIKE IMPLANTS(Performed 07/13/2014) Performed for Other screening mammogram * MAMMO BILAT SCREENING(Performed 06/04/2013) Performed for Other screening mammogram * PAP IG RFLX HPV ASCU(Performed 06/04/2013) Performed for Routine gynecological examination Results * MAMMO DIAG DIRECT DIGITAL IMAGE [...] nodule of concern. Jelly MATIAS MAMMO ORDERABLES * PAP SMEAR IG RFLX HPV ASCU (PO REF LAB) (07/13/2014 2:47 PM CDT) Only the most recent of2 resultswithin the time period is included. Diagnosis [facility] ACCOUNT BILL Comment:NEGATIVE FOR INTRAEP ITHELIAL LESION AND MALIGNANCY. Specimen Adequacy [facility] ACCOUNT BILL Comment: Satisfactory for evaluation. ??Endocervical and/or squamous metaplastic cells (endocervical component) are present. Clinician Provided ICD9 [facility] ACCOUNT BILL Comment: V72.31 ; Routine gynecological examination V49.81 ; Asymptomatic postmenopausal status (age-related) (natural) 799.81 ; Decreased libido Performed by [facility] ACCOUNT BILL Comment:Divya Schmitt, [employer]otec hnologist (ASCP) Comment . [facility] ACCOUNT BILL Note [...] Resulting Agency Comment [facility] [place] [address] [facility] [facility] ??[place] [id number] Jelly Heart APRN-CHIEF CONTROLLER STATION LAB - PATHOLOGY/CYTO LOGY ORDERABLES [facility] ACCOUNT BILL * RAKEL SCREENING IMPLANTS BILAT DIGITAL (07/13/2014 [...] represents. Tiago Weinberg MD MAMMO ORDERABLE S * RAKEL SCREENING DIGITAL BILAT (06/04/2013 11:25 [...] 6 - known biopsy proven cancer. Jelly MATIAS MAMMO ORDERABLES Care Teams Physical Biochemist Relationship Specialty Start Date End Date Tiago Weinberg MD [address] [id number] PCP - General Internal Medicine 06/01/13 Jelly Heart APRN-CNP [address] [address] Nurse Practitioner 07/06/14
--- OUTSIDE RECORDS SUMMARY | 2024-09-29 13:05 | XMS_ITS | Encounter Summary ---
Author Organization [facility] Address [address] [place] [address] Care Team Providers Care Telephone Installer Name Role Phone Unavailable Primary Care Provider Unavailabl e Encounter Details Date Type Department Care Team (Late st Contact Info) Description 08/11/2024 External Device Data [place] ABSTRACTION Provider, Abstract NO ADDRESS ON FILE Social History Tobacco Use Types Packs/Day Years Used Date Smoking Tobacco: Never Smokeless Tobacco: Never Sex and Gender Information Value Date Recorded Sex Assigned at Not on file Gender Identity Not on file Sexual Orientation Not on file documented as of this encounter Plan of Treatment Not on file documented as of this encounter Visit Diagnoses Not on filedocumented in this encounter
--- OUTSIDE RECORDS SUMMARY | 2024-09-29 13:05 | XMS_ITS | Clinical Summary ---
Author Organization [facility] Address [address] [place] [address] Care Team Providers Care Porter Head Name Role Phone Unavailable Primary Care Provider Unavailabl e Allergies No known active allergies Medications Medication Sig Dispensed Refills Start Date End Date Status amLODIPine (NORVASC) 2.5 mg tablet Take 1 Tablet by mouth daily. 10/20/2023 Active atorvastatin (LIPITOR) 10 mg tablet Take 1 Tablet by mouth daily. 12/01/2023 Active metFORMIN (GLUCOPHAGE XR) 500 mg Extended Release 24 hour tablet take 2 tablets by mouth at bedtime 10/17/2023 Active LORazepam (ATIVAN) 1 mg tablet TAKE 1 TABLET BY MOUTH THREE TIMES DAILY NEEDED MUST LAST 30 DAYS. 10/23/2023 Active propranoloL (INDERAL LA) 120 mg Long Acting 24 hour capsule Take 120 mg by mouth daily. Active Active Problems No known active problems Encounters Date Type Department Care Team Description 08/11/2024 External Device Data [facility] ABSTRACTION Provider, Abstract 07/27/2024 External Device Data [facility] ABSTRACTION Provider, Abstract 07/13/2024 External Device Data [facility] ABSTRACTION Provider, Abstract from Last 3 Months Social History Tobacco Use Types Packs/Day Years Used Date Smoking Tobacco: Never Smokeless Tobacco: Never Tobacco Cessation:Counseling Given: Not Answered Sex and Gender Information Value Date Recorded Sex Assigned at Not on file Gender Identity Not on file Sexual Orientation Not on file Last Filed Vital Signs Vital Sign Reading Time Taken Comments Blood Pressure - - Pulse - - Temperature - - Respiratory Rate - - Oxygen Saturation - - Inhaled Oxygen Concentration - - Weight 99.8 kg (220 lb) 01/22/2024 9:45 AM CDT Height 162.6 cm (5' 4 ) 01/22/2024 9:45 AM CDT Body Mass Index 37.76 01/22/2024 9:45 AM CDT Plan of Treatment Health Maintenance Due Date Last Done Comments PNEUMOCOCCAL VACCINE 65+ YEA RS (1 of 2 - PCV) 1959 DIABETES ANNUAL FOOT EXAM 1971 DIABETES ANNUAL RETINAL EXAM 1971 DIABETES HBA1C Q 6 MONTHS 1971 DIABETES MICROALBUMIN ANNUAL SCREEN 1971 LDL CHOLESTEROL ANNUAL 1971 DTAP/TDAP/TD VACCINES (1 - Tdap) 1972 COLORECTAL SCREENING 1998 Colorectal Cancer Screening 1998 FIT-DNA Q 3 years 1998 FIT/FOBT Q 1 year 1998 Flex Sig/CT Colonography Q 5 years 1998 ZOSTER VACCINE (1 of 2) 2003 BREAST CANCER SCREENING 05/14/2017 05/14/20 16, 04/29/2016, 07/20/2014, Additional history exists OSTEOPOROSIS SCREENING 2018 INFLUENZA VACCINE (#1) 2024 RSV VACCINE (60+ or ) (1 - 1-dose 75+ series) 2028
--- OUTSIDE RECORDS SUMMARY | 2024-09-29 13:06 | XMS_ITS | Encounter Summary ---
Author Organization [facility] Address [address] [place] [address] Care Team Providers Care Surveyor Hydrographic Name Role Phone Unavailable Primary Care Provider Unavailabl e Encounter Details Date Type Department Care Team (Late st Contact Info) Description 07/13/2024 External Device Data ST[facility] ABSTRACTION Provider, [...]
--- OUTSIDE RECORDS SUMMARY | 2024-09-29 13:06 | XMS_ITS | Encounter Summary ---
Author Organization [facility] Address [address] [place] [address] Care Team Providers Care Director Sales And Marketing Name Role Phone Unavailable Primary Care Provider Unavailabl e Encounter Details Date Type Department Care Team (Late st Contact Info) Description 03/16/2024 External Device Data STL ABSTRACTION Provider, Abstract [...]
--- OUTSIDE RECORDS SUMMARY | 2024-09-29 13:06 | XMS_ITS | Encounter Summary ---
Author Organization [facility] Address [address] [place] [address] Care Team Providers Care Operation Agent Name Role Phone Unavailable Primary Care Provider Unavailabl e Reason for Visit * Reason Comments Establish Care Knee Pain Left knee pain Encounter Details Date Type Department Care Team (Late st Contact Info) Description 12/25/2023 8:45 AM CDT Office Visit [facility] Orthopedic Surgery at the [facility] [address] [place] [phone] Kam Monsivais MD [address] [facility] [address] [place] [address] Prepatellar bursitis of left knee (Primary Dx) Social History Tobacco Use Types Packs/Day Years [...] - - Weight 99.8 kg (220 lb) 12/25/2023 8:54 AM CDT Height 162.6 cm (5' 4 ) 12/25/2023 8:54 AM CDT Body Mass Index 37.76 12/25/2023 8:54 AM CDT documented in this encounter Progress Notes * Kam Monsivais MD - 12/25/2023 8:54 AM CDT ORTHOPEDIC NEW PATIENT OFFICE VISIT NAME: Kristine García : 1955 DATE: 12/25/2023 CHIEF COMPLAINT: Left knee pain and swelling HPI: Kristine García is a 68 y.o. female who injured her left knee back in April. States she tripped on some steps landing directly on a flexed left knee. She states she was able to get up and walk withfollowing day she had increased swelling over the anterior aspect of her knee. She was seen at an outside facility and did undergo an aspiration without injection. She states they were able to take off 230 cc. She states she did well but unfortunate the swelling came back. She went back to the sameprovider who aspirated again without injecting and removed 80 cc. She states that she continues to have swelling and discoloration in front of her knee. It is uncomfortable when she goes up and down stairs. No past medical history on file. No past surgical history on file. No current outpatient medications on file. No current facility-administered medications for this visit. Not on File Social History Occupational History Not on file Tobacco Use Smoking status: Not on file Smokeless tobacco: Not on file Substance and Sexual Activity Alcohol use: Not on file Drug use: Not on file Sexual activity: Not on file No family history on file. All symptoms are neg except for what is below- noted by patient on 12 point review of systems: PHYSICAL EXAMINATION: VITAL SIGNS: There were no vitals taken for this visit. GENERAL: Kristine García is a WNWD 68 y.o. female. HEENT: Normocephalic, pupils are equal and round bilaterally, mucous membranes are moist CHEST: Chest expands symmetrically, no audible wheezes. Peripheral pulses 2/4 and regular with BCR. SKIN: [place], warm and intact, free of rashes/sores/lesions. PSYCH: The patient is alert and oriented. NEURO: Cranial nerves II-XII grossly intact. CARDIAC: Peripheral pulse 2/4, Regular with brisk capillary refill LUNG: Equal chest wall expansion with non labored breathing bilaterally ABDOMEN: Soft, non tender, non distended EXTREMITIES: Left Knee -she does have fluid noted within the prepatellar bursa. There is no erythema or warmth in this region. She will fully extend the knee and flex to 130 degrees. She is ligamentously stable. RADIOGRAPHIC FINDINGS: X-rays reveal mild degenerative changes. MRI of the left knee from 11/28/2023in outside facility reveals a 7 x 3 x 10 cm complex fluid collection in the prepatellar bursa. IMPRESSION: Prepatellar bursitis left knee. PLAN: I have discussed with the patient her diagnosis and treatment options. She has elected to proceed with an aspiration and injection which was done today under sterile conditions. We did remove 40 cc of thick red fluid consistent with retained hematoma. We have instructed her to wear compression dressing over the next 48 hours. Would like to see her back in 4 weeks. PROCEDURE: Under sterile conditions the left knee was prepped with Betadine and the bursa was anesthetized with injected with 2 cc of 1% lidocaine, the bursa was then aspirated and 40 cc removed and injected with 80 mg Depo-Medrol Kam Monsivais MD Orthopedic Surgery [phone] This dictation was completed using [employer] Speaking Software. Baker Apprentice variances may occur. documented in this encounter Plan of Treatment Not on file documented as of this encounter Results * XR KNEE 3 VW LEFT (12/25/2023 9:17 AM CDT) Anatomical Region Laterality Modality Lower Extremity Computed Radiogr aphy Narrative 12/25/2023 9:57 AM CDT Standing AP, lateral, sunrise view left knee does reveal some mild loss of medial joint space with a large soft tissue mass noted anterior Kam Monsivais MD DIAGNOSTIC IMAGING O RDERABLES documented in this encounter Visit Diagnoses Diagnosis Prepatellar bursitis of left knee- Primary Prepatellar bursitis Left knee pain, unspecified chronicity documented in this encounter Administered Medications Inactive Administered Medications - up to 3 most recent administrations Medication Order MAR Action Action Date Dose Rate Site methylPREDNISolone acetate (DEPO-Medrol) 40 mg/mL injection 80 mg 80 mg, Intra-arTICular, ONE TIME ONLY, 1 dose, On Sharyn 12/25/23 at 0945, Routine Given 12/25/2023 10:02 AM CDT 80 mg Knee, Left documented in this encounter
--- OUTSIDE RECORDS SUMMARY | 2024-09-29 13:06 | XMS_ITS | Encounter Summary ---
Author Organization [facility] Address [address] [place] [address] Care Team Providers Care Upfitter Name Role Phone Unavailable Primary Care Provider Unavailabl e Encounter Details Date Type Department Care Team (Late st Contact Info) Description 12/26/2023 External Device Data STL ABSTRACTION Provider, Abstract [...]
--- OUTSIDE RECORDS SUMMARY | 2024-09-29 13:06 | XMS_ITS | Encounter Summary ---
Author Organization [facility] Address [address] [place] [address] Care Team Providers Care Nursing Clerk Name Role Phone Unavailable Primary Care Provider Unavailabl e Encounter Details Date Type Department Care Team (Late st Contact Info) Description 05/25/2024 External Device Data STL ABSTRACTION Provider, Abstract [...]
--- OUTSIDE RECORDS SUMMARY | 2024-09-29 13:06 | XMS_ITS | Encounter Summary ---
Author Organization [facility] Address [address] [place] [address] Care Team Providers Care Balloon Pilot Name Role Phone Unavailable Primary Care Provider Unavailabl e Encounter Details Date Type Department Care Team (Late st Contact Info) Description 06/03/2024 External Device Data STL ABSTRACTION Provider, Abstract [...]
--- OUTSIDE RECORDS SUMMARY | 2024-09-29 13:06 | XMS_ITS | Encounter Summary ---
Author Organization [facility] Address [address] [place] [address] Care Team Providers Care Rn Mobile Name Role Phone Unavailable Primary Care Provider Unavailabl e Encounter Details Date Type Department Care Team (Late st Contact Info) Description 06/02/2024 External Device Data STL ABSTRACTION Provider, Abstract [...]
--- OUTSIDE RECORDS SUMMARY | 2024-09-29 13:06 | XMS_ITS | Encounter Summary ---
Author Organization [facility] Address [address] [place] [address] Care Team Providers Care Computer Patternmaker Name Role Phone Unavailable Primary Care Provider [...]
--- OUTSIDE RECORDS SUMMARY | 2024-09-29 13:06 | XMS_ITS | Encounter Summary ---
Author Organization [facility] Address [address] [place] [address] Care Team Providers Care Engine Repair Supervisor Name Role Phone Unavailable Primary Care Provider Unavailabl e Reason for Visit * Reason Comments Follow Up Follow up Lt. knee Encounter Details Date Type Department Care Team (Late st Contact Info) Description 01/22/2024 10:00 AM CDT Office Visit [facility] Orthopedic Surgery at the [facility] [address] [place] [phone] Kam Monsivais MD [address] [facility] [address] [place] [address] Prepatellar bursitis of left knee [...] Mass Index 37.76 01/22/2024 9:45 AM CDT documented in this encounter Progress Notes * Kam Monsivais MD - 01/22/2024 10:12 AM CDT ORTHOPEDIC ESTABLISHED OFFICE VISIT NAME: Kristine García : 1955 DATE: 01/22/2024 CHIEF COMPLAINT: Left knee follow-up HPI: Kristine García is a 68 y.o. female who returns today to follow-up on her left knee. She was diagnosed with prepatellar bursitis. She had had swelling and pain for over 8 months. She did undergo an aspiration and injection on 12/25/2023. She states her pain is much better. She feels the swelling has gone down. She has been able to return to her activities. No past medical history on file. No past surgical history on file. Current Outpatient Medications Medication Sig Dispense Refill amLODIPine (NORVASC) 2.5 mg tablet Take 1 Tablet by mouth daily. atorvastatin (LIPITOR) 10 mg tablet Take 1 Tablet by mouth daily. metFORMIN (GLUCOPHAGE XR) 500 mg Extended Release 24 hour tablet take 2 tablets by mouth at bedtime LORazepam (ATIVAN) 1 mg tablet TAKE 1 TABLET BY MOUTH THREE TIMES DAILY NEEDED MUST LAST 30 DAYS. propranoloL (INDERAL LA) 120 mg Long Acting 24 hour capsule Take 120 mg by mouth daily. No current facility-administered medications for this visit. No Known Allergies Social History Tobacco Use Smoking status: Never Smokeless tobacco: Never Substance Use Topics Alcohol use: Not on file Family history noncontributory to today's examination. ROS: Gastrointestinal: negative Musculoskeletal:As above. Neurological: negative Skin: negative for skin rashes or unusual skin lesions PHYSICAL EXAMINATION: VITAL SIGNS: Ht 5' 4 (1.626 m) Wt 99.8 kg (220 lb) BMI 37.76 kg/m?? GENERAL: Kristine García is a WNWD 68 y.o. female HEENT: Normocephalic, he pulls equal and round bilaterally, mucus membranes are moist SKIN: Brisk capillary refill, free of rashes/sores/lesions PSYCH: The patient is alert and oriented. NEURO: Cranial nerves II-XII grossly intact. CARDIAC: Peripheral pulse 2/4, Regular with brisk capillary refill LUNG: Equal chest wall expansion with non labored breathing bilaterally ABDOMEN: Soft, non tender, non distended EXTREMITIES: Left Knee -there is some fluid noted within the prepatellar bursa. There is no effusion noted to the knee. She will fully extend the knee and flex 230 degrees. She is nontender to palpation over the prepatellar bursa. RADIOGRAPHIC FINDINGS: None obtained IMPRESSION: Prepatellar bursitis left knee. PLAN: The patient has noted improvement since the aspiration injection. I recommended that she slowly return to all of her activities. She may continue with ice and heat and I have also recommended Voltaren gel. If she notes any increased pain or problems I be happy see her back This dictation was completed using [employer] Speaking Software. Cinema Operator variances may occur. documented in this encounter Plan of Treatment Not on file documented as of this encounter Visit Diagnoses Diagnosis Prepatellar bursitis of left knee- Primary Prepatellar bursitis documented in this encounter
--- OUTSIDE RECORDS SUMMARY | 2024-09-29 13:06 | XMS_ITS | Encounter Summary ---
Author Organization [facility] Address [address] [place] [address] Care Team Providers Care Employment Supervisor Name Role Phone Unavailable Primary Care [...]
--- OUTSIDE RECORDS SUMMARY | 2024-09-29 13:06 | XMS_ITS | Encounter Summary ---
Author Organization [facility] Address [address] [place] [address] Care Team Providers Care Lime Burner Name Role Phone Unavailable Primary Care Provider Unavailabl e Encounter Details Date Type Department Care Team (Late st Contact Info) Description 12/30/2023 External Device Data STL ABSTRACTION Provider, Abstract [...]
--- OUTSIDE RECORDS SUMMARY | 2024-09-29 13:06 | XMS_ITS | Encounter Summary ---
Author Organization [facility] Address [address] [place] [address] Care Team Providers Care Gasoline Service Attendant Name Role Phone Unavailable Primary Care Provider [...]
--- OUTSIDE RECORDS SUMMARY | 2024-09-29 13:06 | XMS_ITS | Encounter Summary ---
Author Organization [facility] Address [address] [place] [address] Care Team Providers Care Pressing Machine Operator Name Role Phone Unavailable Primary Care Provider Unavailabl e Encounter Details Date Type Department Care Team (Late st Contact Info) Description 03/30/2024 External Device Data STL ABSTRACTION Provider, Abstract [...]
--- OUTSIDE RECORDS SUMMARY | 2024-09-29 13:06 | XMS_ITS | Encounter Summary ---
Author Organization [facility] Address [address] [place] [address] Care Team Providers Care Heel Turner Name Role Phone Unavailable Primary Care Provider Unavailabl e Encounter Details Date Type Department Care Team (Latest Contact Info) Description 12/25/2023 9:10 AM CDT Ancillary Procedure [facility] Orthopedic Surgery at the [facility] [address] [place] [phone] Kam Monsivais MD [address] [facility] [address] [place] [phone] Left knee pain, unspecified chronicity Social History Tobacco Use Types Packs/Day Years Used Date Smoking Tobacco: Never Smokeless Tobacco: Never Sex and Gender Information Value Date Recorded Sex Assigned at Not on file Gender Identity Not on file Sexual Orientation Not on file documented as of this encounter Plan of Treatment Not on file documented as of this encounter Procedures Procedure Name Priority Date/Time Associated Diagnosis Comments XR KNEE 3 VW LEFT Routine 12/25/2023 9:1 7 AM CDT Left knee pain, unspecified chronicity documented in this encounter Results * XR KNEE 3 [...] documented in this encounter Visit Diagnoses Diagnosis Left knee pain, unspecified chronicity documented in this encounter
--- OUTSIDE RECORDS SUMMARY | 2024-09-29 13:06 | XMS_ITS | Encounter Summary ---
Author Organization [facility] Address [address] [place] [address] Care Team Providers Care Breakfast Supervisor Name Role Phone Unavailable Primary Care Provider Unavailabl e Encounter Details Date Type Department Care Team (Late st Contact Info) Description 01/27/2024 External Device Data STL ABSTRACTION Provider, Abstract [...]
--- OUTSIDE RECORDS SUMMARY | 2024-09-29 13:06 | XMS_ITS | Encounter Summary ---
Author Organization [facility] Address [address] [place] [address] Care Team Providers Care Heatset Winder Operator Name Role Phone Unavailable Primary Care Provider Unavailabl e Encounter Details Date Type Department Care Team (Late st Contact Info) Description 06/22/2024 External Device Data STL ABSTRACTION Provider, Abstract [...]
--- OUTSIDE RECORDS SUMMARY | 2024-09-29 13:06 | XMS_ITS | Encounter Summary ---
Author Organization [facility] Address [address] [place] [address] Care Team Providers Care Follow Up Clerk Name Role Phone Unavailable Primary Care Provider Unavailabl e Encounter Details Date Type Department Care Team (Late st Contact Info) Description 12/25/2023 Orders Only [facility] Orthopedic Surgery at the [facility] [address] [facility] [address] [place] [address] Social History Tobacco Use Types Packs/Day Years Used Date Smoking Tobacco: Never Smokeless Tobacco: Never Sex and Gender Information Value Date Recorded Sex Assigned at Not on file Gender Identity Not on file Sexual Orientation Not on file documented as of this encounter Plan of Treatment Not on file documented as of this encounter Procedures Procedure Name Priority Date/Time Associated Diagnosis Comments MRI KNEE WO CONTRAST LEFT Routine 12/25/2023 12:36 PM CDT documented in this encounter Results * MRI KNEE WO CONTRAST LEFT (12/25/2023 12:36 PM CDT) Anatomical Region Laterality Modality Lower Extremity Other Unknown MR ORDERABLES documented in this encounter Visit Diagnoses Not on filedocumented in this encounter
--- OUTSIDE RECORDS SUMMARY | 2024-09-29 13:06 | XMS_ITS | Encounter Summary ---
Author Organization [facility] Address [address] [place] [address] Care Team Providers Care Running Specialist Name Role Phone Unavailable Primary Care Provider Unavailabl e Encounter Details Date Type Department Care Team (Late st Contact Info) Description 07/27/2024 External Device Data STL ABSTRACTION Provider, [...]
--- OUTSIDE RECORDS SUMMARY | 2024-09-29 13:06 | XMS_ITS | Encounter Summary ---
Author Organization [facility] Address [address] [place] [address] Care Team Providers Care Double Reamer Operator Name Role Phone Unavailable Primary Care [...]
--- OUTSIDE RECORDS SUMMARY | 2024-09-29 13:06 | XMS_ITS | Encounter Summary ---
Author Organization [facility] Address [address] [place] [address] Care Team Providers Care Manager Of Software Development Name Role Phone Unavailable Primary Care Provider Unavailabl e Encounter Details Date Type Department Care Team (Late st Contact Info) Description 01/28/2024 External Device Data STL ABSTRACTION Provider, Abstract [...]
--- OUTSIDE RECORDS SUMMARY | 2024-09-29 22:48 | XMS_ITS | Clinical Summary ---
Author Organization [facility] Address [address] [place] [address] Care Team Providers Care Balancer Scale Name Role Phone Tiago Weinberg MD Primary Care Provider Jelly Heart APRN-MANAGER FREELANCE Unavailable Unavailable Source Comments [facility],non-owned Affiliates and Associated Physician Practices is amultiple site organization consisting of ambulatory clinics and hospital sitesin [place], [place], [place] and [place]. This disclosure is being madepursuant to the Care Everywhere program and may not contain all information available regarding this patient. Last updated 18.[facility] Allergies No known active allergies Medications * [...] no underlying nodule of concern. Jelly Heart CYTOTECHNOLOGIST SUPERVISOR-MANAGER FREELANCE MAMMO ORDERABLES from Last 3 Months or Most Recently Relevant to Health Maintenance Care Teams Balancer Scale Relationship Specialty Start Date End Date Tiago Weinberg MD [address] [phone] PCP - General Internal Medicine 06/01/13 Jelly Heart APRN-MANAGER FREELANCE [address] [address] Nurse Practitioner 07/06/14
--- OUTSIDE RECORDS SUMMARY | 2024-09-29 22:48 | XMS_ITS | Patient Health Summary ---
Author Organization [facility] Address [address] [place] [address] Care Team Providers Care Cutter Down Name Role Phone Tiago Weinberg MD Primary Care Provider Jelly Heart APRN-MANUFACTURING LEADER Unavailable Unavailable Note from Formerly named [facility],non-owned Affiliates and Associated Physician Practices is amultiple site organization consisting of ambulatory clinics and hospital sitesin [place], [place] and [place]. This disclosure is being madepursuant to the Care Everywhere program and may not contain all information available regarding this patient. Last updated 18.[facility] Allergies No known active allergies Medications * [...] Vial Resulting Agency Comment [facility] [place] [address] [facility] ??[place] [phone] Jelly Heart APRN-MANUFACTURING LEADER LAB - PATHOLOGY/CYTO LOGY ORDERABLES [facility] ACCOUNT [...] cancer. Jelly MATIAS MAMMO ORDERABLES Care Teams Cutter Down Relationship Specialty Start Date End Date Tiago Weinberg MD [address] [phone] PCP - General Internal Medicine 06/01/13 Jelly Heart APRN-CNP [address] [address] Nurse Practitioner 07/06/14
--- OUTSIDE RECORDS SUMMARY | 2024-09-29 22:48 | XMS_ITS | Referral Summary ---
Author Organization [facility] Address [address] [facility] [place] [address] Care Team Providers Care Machine Hoop Maker Helper Name Role Phone Tiago Weinberg MD Primary Care Provider Jelly Heart APRN-FOCUSED FACTORY MANAGER Unavailable Unavailable Source Comments [facility],non-owned Affiliates and Associated Physician Practices is amultiple site organization consisting of ambulatory clinics and hospital sitesin [place], [place], [place] and [place]. This disclosure is being madepursuant to the Care Everywhere program and may not contain all information available regarding this patient. Last updated 18.[facility] Allergies No known active allergies Medications * [...] Recently Relevant to Health Maintenance Care Teams Machine Hoop Maker Helper Relationship Specialty Start Date End Date Tiago Weinberg MD [address] [address] PCP - General Internal Medicine 06/01/13 Jelly Heart APRN-CNP [address] [address] Nurse Practitioner 07/06/14
--- OUTSIDE RECORDS SUMMARY | 2024-09-29 22:48 | XMS_ITS | Encounter Summary ---
Author Organization [facility] Address [address] [facility] [place] [address] Care Team Providers Care Paper Goods Machine Operator Name Role Phone Tiago Weinberg MD Primary Care Provider Jelly Heart Unavailable Unavailable Reason for Visit * Reason Onset Date Comments MEDICATION REFILL 06/07/2015 Encounter Details Date Type Department Care Team (Late st Contact Info) Description 06/07/2015 Telephone [facility] - Family Medicine [address] [place] [phone] Jelly Heart APRN-CNP RETIRED MEDICATION REFILL Social [...] annual visit is 07/13. Will be in [place] last week of Jun while daughter having second child. Will call and schedule visit upon return. She uses [facility] [place] [facility] in [place]. documented in this encounter Plan of Treatment Not on file documented as of this encounter Visit Diagnoses Not on filedocumented in this encounter Care Teams Paper Goods Machine Operator Relationship Specialty Start Date End Date Tiago Weinberg MD [address] [address] PCP - General Internal Medicine 06/01/13 Jelly Heart APRN-GERARDO [address] [address] Nurse Practitioner 07/06/14 documented as of this encounter
--- OUTSIDE RECORDS SUMMARY | 2024-09-29 22:49 | XMS_ITS | Encounter Summary ---
Author Organization [facility] Address [address] [place] [address] Care Team Providers Care Loan Expeditor Name Role Phone Unavailable Primary Care Provider Unavailabl e Reason for Visit * Reason Comments Establish Care Knee Pain Left knee pain Encounter Details Date Type Department Care Team (Late st Contact Info) Description 12/25/2023 8:45 AM CDT Office Visit [facility] Orthopedic Surgery at the [facility] [address] [place] [phone] Kam Monsivais MD [address] [facility] [place] [address] Prepatellar bursitis of left knee [...] pulses 2/4 and regular with BCR. SKIN: [place], warm and intact, free of rashes/sores/lesions. PSYCH: [...] mg Depo-Medrol Kam Monsivais MD Orthopedic Surgery [phone] This dictation was completed using [employer] Speaking Software. Hhas variances may occur. documented in this encounter [...]
--- OUTSIDE RECORDS SUMMARY | 2024-09-29 22:49 | XMS_ITS | Encounter Summary ---
Author Organization [facility] Address [address] [place] [address] Care Team Providers Care Oiler Helper Name Role Phone Unavailable Primary Care Provider [...]
--- OUTSIDE RECORDS SUMMARY | 2024-09-29 22:49 | XMS_ITS | Encounter Summary ---
Author Organization [facility] Address [address] [place] [address] Care Team Providers Care Buggyman Name Role Phone Unavailable Primary Care Provider [...]
--- OUTSIDE RECORDS SUMMARY | 2024-09-29 22:49 | XMS_ITS | Encounter Summary ---
Author Organization [facility] Address [address] [place] [address] Care Team Providers Care Explosives Mixer Operator Name Role Phone Unavailable Primary Care [...]
--- OUTSIDE RECORDS SUMMARY | 2024-09-29 22:49 | XMS_ITS | Encounter Summary ---
Author Organization [facility] Address [address] [place] [address] Care Team Providers Care Input Output Clerk Name Role Phone Unavailable Primary Care [...]
--- OUTSIDE RECORDS SUMMARY | 2024-09-29 22:49 | XMS_ITS | Encounter Summary ---
Author Organization [facility] Address [address] [place] [address] Care Team Providers Care Hr Administrator Name Role Phone Unavailable Primary Care Provider [...]
--- OUTSIDE RECORDS SUMMARY | 2024-09-29 22:49 | XMS_ITS | Encounter Summary ---
Author Organization [facility] Address [address] [place] [address] Care Team Providers Care Cosmetics Machine Operator Name Role Phone Unavailable Primary [...]
--- OUTSIDE RECORDS SUMMARY | 2024-09-29 22:49 | XMS_ITS | Encounter Summary ---
Author Organization [facility] Address [address] [place] [address] Care Team Providers Care Oyster Fisherman Name Role Phone Unavailable Primary Care Provider Unavailabl e Encounter Details Date Type Department Care Team (Latest Contact Info) Description 12/25/2023 9:10 AM CDT Ancillary Procedure [facility] Orthopedic Surgery at the [facility] [address] [place] [phone] Kam Monsivais MD [address] [facility] [address] [place] [phone] Left knee pain, unspecified chronicity Social History [...]
--- OUTSIDE RECORDS SUMMARY | 2024-09-29 22:49 | XMS_ITS | Encounter Summary ---
Author Organization [facility] Address [address] [place] [address] Care Team Providers Care Business Control Specialist Name Role Phone Unavailable Primary Care [...]
--- OUTSIDE RECORDS SUMMARY | 2024-09-29 22:49 | XMS_ITS | Encounter Summary ---
Author Organization [facility] Address [address] [place] [address] Care Team Providers Care Policy Specialist Name Role Phone Unavailable Primary Care [...]
--- OUTSIDE RECORDS SUMMARY | 2024-09-29 22:49 | XMS_ITS | Encounter Summary ---
Author Organization [facility] Address [address] [place] [address] Care Team Providers Care Regulatory Affairs Strategy Specialist Name Role Phone Unavailable Primary Care [...]
--- OUTSIDE RECORDS SUMMARY | 2024-09-29 22:49 | XMS_ITS | Encounter Summary ---
Author Organization [facility] Address [address] [place] [address] Care Team Providers Care Bottling Attendant Name Role Phone Unavailable Primary Care [...]
--- OUTSIDE RECORDS SUMMARY | 2024-09-29 22:49 | XMS_ITS | Encounter Summary ---
Author Organization [facility] Address [address] [place] [address] Care Team Providers Care Molecular Technologist Name Role Phone Unavailable Primary Care Provider [...]
--- OUTSIDE RECORDS SUMMARY | 2024-09-29 22:49 | XMS_ITS | Encounter Summary ---
Author Organization [facility] Address [address] [place] [address] Care Team Providers Care Coding Machine Operator Name Role Phone Unavailable Primary [...]
--- OUTSIDE RECORDS SUMMARY | 2024-09-29 22:49 | XMS_ITS | Encounter Summary ---
Author Organization [facility] Address [address] [place] [address] Care Team Providers Care Electrician Marine Name Role Phone Tiago Weinberg MD Primary Care Provider Jelly Heart Unavailable Unavailable Encounter Details Date Type Department Care Team (Late st Contact Info) Description 06/07/2015 Telephone [facility] Medical [facility] - Family Medicine [address] [place] [phone] Jelly Heart APRN-CNP RETIRED Social History [...] 11:26 AM CDT Please call Kristine at [phone] about a refill documented in this encounter Plan of Treatment Not on file documented as of this encounter Visit Diagnoses Not on filedocumented in this encounter Care Teams Electrician Marine Relationship Specialty Start Date End Date Tiago Weinberg MD [address] [phone] PCP - General Internal Medicine 06/01/13 Jelly Heart APRN-ACOUSTICAL INSTALLER [address] [address] Nurse Practitioner 07/06/14 documented as of this encounter
--- OUTSIDE RECORDS SUMMARY | 2024-09-29 22:49 | XMS_ITS | Encounter Summary ---
Author Organization [facility] Address [address] [facility] [place] [address] Care Team Providers Care Assessment Nurse Name Role Phone Tiago Weinberg MD Primary Care Provider Reason for Visit * Reason Onset Date Comments Refill Request 12/16/2013 Encounter Details Date Type Department Care Team (Late st Contact Info) Description 12/16/2013 Telephone [facility] - Family Medicine [address] [place] [phone] Jelly Heart APRN-GERARDO RETIRED Refill Request [...] on filedocumented in this encounter Care Teams Assessment Nurse Relationship Specialty Start Date End Date Tiago Weinberg MD [address] [address] PCP - General Internal Medicine 06/01/13 documented as of this encounter
--- OUTSIDE RECORDS SUMMARY | 2024-09-29 22:49 | XMS_ITS | Encounter Summary ---
Author Organization [facility] Address [address] [place] [address] Care Team Providers Care Button Tufter Name Role Phone Unavailable Primary Care Provider Unavailabl e Encounter Details Date Type Department Care Team (Late st Contact Info) Description 12/25/2023 Orders Only [facility] Orthopedic Surgery at the [facility] [address] [place] [address] Social History Tobacco Use Types [...]
--- OUTSIDE RECORDS SUMMARY | 2024-09-29 22:49 | XMS_ITS | Encounter Summary ---
Author Organization [facility] Address [address] [facility] [place] [address] Care Team Providers Care Patch Setter Name Role Phone Tiago Weinberg MD Primary [...] Expiration Date Visits Re quested Visits Authorized [id number] Closed 07/20/2014 01/16/2015 1 1 Reason for Visit * Hospital - Outpatient (Routine) - Closed Specialty Diagnoses / Procedures Referred By Osman elam Referred To Contact Mammography Procedures Diag Carmine Left Breast Tiago Weinberg MD [facility] [address] [facility] Mammo [address] [place] [address] Referral ID Status Reason Start Date Expiration Date Visits Re quested Visits Authorized [id number] Closed 07/20/2014 01/16/2015 1 1 Encounter Details Date Type Department Care Team (Latest Contact Info) Description 07/20/2014 12:51 PM CDT - 07/20/2014 11:59 PM CDT Hospital Encounter [facility] Breast Care [address] [place] [address] Tiago Weinberg MD [address] [facility] [address] [phone] Mammography Discharge Disposition: Home or Self Care [...] unspecified documented in this encounter Care Teams Patch Setter Relationship Specialty Start Date End Date Tiago Weinberg MD [address] [phone] PCP - General Internal Medicine 06/01/13 Jelly Heart APRN-CNP [address] [facility] [address] [address] Nurse Practitioner 07/06/14 documented as of this encounter
--- OUTSIDE RECORDS SUMMARY | 2024-09-29 22:49 | XMS_ITS | Encounter Summary ---
Author Organization [facility] Address [address] [facility] [place] [address] Care Team Providers Care Hat Ironer Name Role Phone Tiago Weinberg MD Primary Care Provider Jelly Heart APRN-SUPERVISOR TELLERS Unavailable Unavailable Reason for Referral * Radiology Services - Closed Specialty Diagnoses / Procedures Referred By Osman elam Referred To Contact Mammography Diagnoses Other screening mammogram Procedures RAKEL SCREENING IMPLANTS Tiago Blanco MD [address] [address] Referral ID Status Reason Start Date Expiration Date Visits Re quested Visits Authorized [id number] Closed 07/13/2014 01/09/2015 1 1 Reason for Visit * Radiology Services - Closed Specialty Diagnoses / Procedures Referred By Osman elam Referred To Contact Mammography Diagnoses Other screening mammogram Procedures RAKEL SCREENING IMPLANTS Tiago Blanco MD [address] [address] Referral ID Status Reason Start Date Expiration Date Visits Re quested Visits Authorized [id number] Closed 07/13/2014 01/09/2015 1 1 Encounter Details Date Type Department Care Team (Latest Contact Info) Description 07/13/2014 1:13 PM CDT - 07/13/2014 11:59 PM CDT Hospital Encounter [facility] Breast Care [address] [place] [phone] Tiago Weinberg MD [address] [phone] Mammography Discharge Disposition: Home or Self Care [...] mammogram documented in this encounter Care Teams Hat Ironer Relationship Specialty Start Date End Date Tiago Weinberg MD [address] [address] PCP - General Internal Medicine 06/01/13 Jelly Heart, NICOLE-SUPERVISOR TELLERS [address] [address] Nurse Practitioner 07/06/14 documented as of this encounter
--- OUTSIDE RECORDS SUMMARY | 2024-09-29 22:49 | XMS_ITS | Encounter Summary ---
Author Organization [facility] Address [address] [place] [address] Care Team Providers Care Pump Erector Name Role Phone Unavailable Primary Care Provider [...]
--- OUTSIDE RECORDS SUMMARY | 2024-09-29 22:49 | XMS_ITS | Encounter Summary ---
Author Organization [facility] Address [address] [place] [address] Care Team Providers Care Prepress Operator Name Role Phone Tiago Weinberg MD Primary Care Provider Reason for Referral * Radiology Services - Closed Specialty Diagnoses / Procedures Referred By Contac t Referred To Contact Mammography Diagnoses Other screening mammogram Procedures RAKEL SCREENING DIGITAL SPIKEAT Jelly Heart APRN-CNP RETIRED Referral ID Status Reason Start Date Expiration Date Visits Re quested Visits Authorized [id number] Closed 06/04/2013 12/01/2013 1 1 Reason for Visit * Radiology Services - Closed Specialty Diagnoses / Procedures Referred By Osman elam Referred To Contact Mammography Diagnoses Other screening mammogram Procedures RAKEL SCREENING DIGITAL SPIKEAT Jelly Heart APRN-CNP RETIRED Referral ID Status Reason Start Date Expiration Date Visits Re quested Visits Authorized [id number] Closed 06/04/2013 12/01/2013 1 1 Encounter Details Date Type Department Care Team (Latest Contact Info) Description 06/04/2013 11:16 AM CDT - 06/04/2013 11:59 PM CDT Hospital Encounter [facility] Breast Care [address] [place] [address] Jelly Heart APRN-CNP RETIRED Discharge Disposition: Home [...] - known biopsy proven cancer. Jelly Sly PNEUDRAULIC SYSTEMS MECHANIC-ANIMATION ARTIST MAMMO ORDERABLES documented in this encounter Visit Diagnoses Diagnosis Other screening mammogram documented in this encounter Care Teams Prepress Operator Relationship Specialty Start Date End Date Tiago Weinberg MD [address] [address] PCP - General Internal Medicine 06/01/13 documented as of this encounter
--- OUTSIDE RECORDS SUMMARY | 2024-09-29 22:49 | XMS_ITS | Encounter Summary ---
Author Organization [facility] Address [address] [place] [address] Care Team Providers Care Slubber Hand Name Role Phone Tiago Weinberg MD Primary Care Provider Jelly Heart Unavailable Unavailable Reason for Visit * Reason Comments Rig Superintendent Routine Exam Encounter Details Date Type Department Care Team (Latest Contact Info) Description 07/13/2014 2:00 PM CDT Office Visit [facility] Medical [facility] - Family Medicine [address] [place] [phone] Jelly Heart APRN-CNP RETIRED Routine gynecological examination [...] yearly Continue Testosterone Cream; refill called to [facility]. documented in this encounter Progress Notes * [...] [facility] ACCOUNT BILL Comment:Divya Schmitt, Cytotec hnologist ([facility]) Comment . [facility] ACCOUNT BILL Note [...] Prep Vial Resulting Agency Comment [facility] [place] [address] [place] [address] ??[place] DAN [id number] Jelly Rakey CAGE TENDER-INFORMATION ANALYST LAB - PATHOLOGY/CYTO LOGY ORDERABLES [facility] ACCOUNT BILL documented in this encounter Visit Diagnoses Diagnosis Routine gynecological examination- Primary Menopause Symptomatic menopausal or female climacteric states Decreased libido documented in this encounter Care Teams Slubber Hand Relationship Specialty Start Date End Date Tiago Weinberg MD [address] [address] PCP - General Internal Medicine 06/01/13 Jelly Heart APRN-CNP [address] [address] Nurse Practitioner 07/06/14 documented as of this encounter
--- OUTSIDE RECORDS SUMMARY | 2024-09-29 22:49 | XMS_ITS | Encounter Summary ---
Author Organization [facility] Address [address] [place] [address] Care Team Providers Care Customer Engineering Specialist Name Role Phone Unavailable Primary Care [...]
--- OUTSIDE RECORDS SUMMARY | 2024-09-29 22:49 | XMS_ITS | Encounter Summary ---
Author Organization [facility] Address [address] [place] [address] Care Team Providers Care Drop Wirer Name Role Phone Unavailable Primary Care Provider Unavailabl e Reason for Visit * Reason Comments Follow Up Follow up Lt. knee Encounter Details Date Type Department Care Team (Late st Contact Info) Description 01/22/2024 10:00 AM CDT Office Visit [facility] Orthopedic Surgery at the [facility] [address] [place] [phone] Kam Monsivais MD [address] [facility] [address] [place] [address] Prepatellar bursitis of left knee [...] her back This dictation was completed using [employer] Speaking Software. Casing Worker variances may occur. documented in this encounter Plan of Treatment Not on file documented as of this encounter Visit Diagnoses Diagnosis Prepatellar bursitis of left knee- Primary Prepatellar bursitis documented in this encounter
--- OUTSIDE RECORDS SUMMARY | 2024-09-29 22:49 | XMS_ITS | Encounter Summary ---
Author Organization [facility] Address [address] [place] [address] Care Team Providers Care Golf Starter And Ranger Name Role Phone Unavailable Primary Care Provider [...]
--- OUTSIDE RECORDS SUMMARY | 2024-09-29 22:49 | XMS_ITS | Encounter Summary ---
Author Organization [facility] Address [address] [place] [address] Care Team Providers Care Web Machine Tender Name Role Phone Unavailable Primary Care Provider [...]
--- OUTSIDE RECORDS SUMMARY | 2024-09-29 22:49 | XMS_ITS | Encounter Summary ---
Author Organization [facility] Address [address] [place] [address] Care Team Providers Care Consulting Utility Forester Name Role Phone Tiago Weinberg MD Primary Care Provider Jelly Heart Unavailable Unavailable Encounter Details Date Type Department Care Team (Late st Contact Info) Description 07/14/2014 Orders Only [facility] Medical [facility] - Family Medicine [address] [place] [phone] Jelly Heart APRN-CNP RETIRED Abnormal mammogram Social [...] unspecified documented in this encounter Care Teams Consulting Utility Forester Relationship Specialty Start Date End Date Tiago Weinberg MD [address] [address] PCP - General Internal Medicine 06/01/13 Jelly Heart APRN-CNP [address] [address] Nurse Practitioner 07/06/14 documented as of this encounter
--- OUTSIDE RECORDS SUMMARY | 2024-09-29 22:49 | XMS_ITS | Clinical Summary ---
Author Organization [facility] Address [address] [place] [address] Care Team Providers Care Electric Crane Operator Name Role Phone Unavailable Primary Care [...]
--- OUTSIDE RECORDS SUMMARY | 2024-09-29 22:49 | XMS_ITS | Encounter Summary ---
Author Organization [facility] Address [address] [place] [address] Care Team Providers Care Cloth Doubling Machine Operator Name Role Phone Tiago Weinberg MD Primary Care Provider Reason for Visit * Reason Comments Complete Physical Exam pap Encounter Details Date Type Department Care Team (Latest Contact Info) Description 06/04/2013 10:00 AM CDT Office Visit [facility] - Family Medicine [address] [place] [phone] Jelly Heart APRN-STRIP MILL OPERATOR RETIRED Routine gynecological examination (Primary Dx); Menopause; [...] for Testosterone cream and Progesterone cream to [facility] in [place], [place]; will try this first prior to Effexor. Effexor XR 37.5 daily to [facility] [place]; pt aware there is a caution with [...] ICD9 [facility] ACCOUNT BILL Comment:V72.31 ; Routine printing engineer ecological examination Performed by [facility] ACCOUNT BILL [...] Vial Resulting Agency Comment [facility] [address] [facility] [place] ??[place]ron DAN [phone] Jelly Heart PATCH WASHER-STRIP MILL OPERATOR LAB - PATHOLOGY/CYTO LOGY ORDERABLES [facility] ACCOUNT BILL documented in this encounter Visit Diagnoses Diagnosis Routine gynecological examination- Primary Menopause Symptomatic menopausal or female climacteric states Decreased libido Migraine Migraine, unspecified, without mention of intractable migraine without mention of status migrainosus documented in this encounter Care Teams Cloth Doubling Machine Operator Relationship Specialty Start Date End Date Tiago Weinberg MD [address] [address] PCP - General Internal Medicine 06/01/13 documented as of this encounter
== END 2024-09-25 17:00 | disposition short-term general hospital (02) ==
PROVIDERS: Emergency Provider Physician Assistant; PCP Internal Medicine
DX: S01.21XA Laceration without foreign body of nose, initial encounter (principal); W19.XXXA Unspecified fall, initial encounter; Z23 Encounter for immunization; E78.00 Pure hypercholesterolemia, unspecified; E11.9 Type 2 diabetes mellitus without complications; I10 Essential (primary) hypertension
CPT/HCPCS: 70450; 70486; 72125; 90471; 90715; 99284; A9270

== ENCOUNTER 2024-11-16 09:33 | Outpatient (CLI) | payer MEDICARE, SELFPAY ==
--- OUTSIDE RECORDS SUMMARY | 2024-11-16 10:06 | XMS_ITS | Clinical Summary ---
Author Organization [facility] [address] Address [address] [place] [address] Care Team Providers Care Epic Interface Analyst Name Role Phone Valeriano Cornell MD Primary Care Provider Allergies No known active allergies Medications bacitracin 500 unit/gram ointment Apply topically 2 (two) times a day 120 g 4 Active oxyCODONE (ROXICODONE) 5 mg immediate release tabletIndicatio ns:Pain Take 1 tablet (5 mg total) by mouth every 4 (four) hours as needed for pain 12 tablet 4 Active sodium chloride (OCEAN) 0.65 % nasal spray Administer 1 spray into each nostril as needed for rhinitis 15 mL 4 09/25/20 25 Active amLODIPine (NORVASC) 2.5 mg tablet Take 1 tablet (2.5 mg total) by mouth daily Active atorvastatin (LIPITOR) 10 mg tablet Take 1 tablet (10 mg total) by mouth daily Active LORazepam (ATIVAN) 1 mg tablet TAKE 1 TABLET BY MOUTH THREE TIMES DAILY NEEDED MUST LAST 30 DAYS. 4 Active metFORMIN XR (GLUCOPHAGE XR) 500 mg 24 hr tablet Take 2 tablets (1,000 mg total) by mouth nightly Active propranolol LA (INDERAL LA) 120 mg 24 hr capsule Take 1 capsule (120 mg total) by mouth daily Active SUMAtriptan (IMITREX) 100 mg tablet Take 1 tablet (100 mg total) by mouth daily Active Active Problems No known active problems Encounters Date Type Department Care Team Description 10/14/2024 1:00 PM PERSONAL CARE AIDE Office Visit [facility] ENT [address] [facility] Medical Office Building [address] [place] [address] Jacky Maxwell MD Facial laceration, initial encounter 09/25/2024 6:38 PM PERSONAL CARE AIDE - 09/25/2024 10:27 PM PERSONAL CARE AIDE Emergency [facility] Emergency Department [address] [place] [address] Sary Hoang MD Diagnosis unknown (Primary Dx); Nasal laceration, initial encounter Discharge Disposition: Discharge to home or self care from Last 3 Months Surgical History Surgery Date Site/Laterality Comments CHOLECYSTECTOMY Medical History Medical History Date Comments Anxiety Diabetes (HCC) Migraine HL (hearing loss) Family History Medical History Relation Name Comments Cancer Father Heart disease Father Heart disease Mother Heart disease Sister Relation Name Status Comments Father Mother Sister Social History Tobacco Use Types Packs/Day Years Used Date Smoking Tobacco: Never Tobacco Cessation:Counseling Given: Not Answered AUDIT-C Answer Date Recorded Q1: How often do you have a drink containing alcohol? Never 10/14/2024 Q2: How many drinks containi ng alcohol do you have on a typical day when you are drinking? Patient does not drink Q3: How often do you have si x or more drinks on one occasion? Never 10/14/2024 Personal Safety Answer Date Recorded Have you ever been in or are you currently in a harmful physical or emotional relationship or is someone making you feel afraid or unsafe? Denies 09/25/2024 Comments Unknown Sex and Gender Information Value Date Recorded Sex Assigned at Not on file Legal Sex Female 2:02 AM PERSONAL CARE AIDE Gender Identity Not on file Sexual Orientation Not on file Obstetrics History Last Filed Vital Signs Vital Sign Reading Time Taken Comments Blood Pressure 160/79 09/25/2024 10:26 PM PERSONAL CARE AIDE Pulse 65 09/25/2024 10:26 PM PERSONAL CARE AIDE Temperature 36.6 ??C (97.9 ??F) 09/25/2024 5:42 PM CS T Respiratory Rate 16 09/25/2024 10:26 PM PERSONAL CARE AIDE Oxygen Saturation 97% 09/25/2024 10:26 PM PERSONAL CARE AIDE Inhaled Oxygen Concentration - - Weight 99.8 kg (220 lb) 10/14/2024 1:02 PM PERSONAL CARE AIDE Height 162.6 cm (5' 4 ) 10/14/2024 1:02 PM PERSONAL CARE AIDE Body Mass Index 37.76 10/14/2024 1:02 PM PERSONAL CARE AIDE Plan of Treatment Health Maintenance Due Date [...] 09/25/2034 09/25/2024 Pneumococcal vaccine 65+ Completed 08/22/2022, 12/2019 Covid-19 Vaccine Completed 08/02/2024, , 02/18/2022, Additional history exists Influenza Vaccine Completed 08/02/2024, , 09/24/2021, Additional history exists Procedures Procedure Name Priority Date/Time Associated Diagnosis Comments NEURO CT OUTSIDE CONSULT Routine 09/25/2024 7:33 PM PERSONAL CARE AIDE Diagnosis unknown NEURO CT OUTSIDE CONSULT Routine 09/25/2024 7:30 PM PERSONAL CARE AIDE Diagnosis unknown POCT GLUCOSE DEVICE Routine 09/25/2024 6 :48 PM PERSONAL CARE AIDE SCREENING MAMMOGRAM BILATERAL W AYAZ Routine 04/29/2016 11:26 AM CDT from Last 3 Months or Most Recently Relevant to Health Maintenance Results * Neuro CT Outside Consult (09/25/2024 7:33 PM PERSONAL CARE AIDE) Anatomical Region Laterality Modality N/A Computed Tomogra phy 09/26/2024 1:57 AM PERSONAL CARE AIDE Impressions 09/26/2024 7:52 AM PERSONAL CARE AIDE 1. ??No acute intracranial abnormality. 2. ??No [...] images may or may not represent the [place] source data set and thus may contain changes that may lower the accuracy of this second-opinion interpretation. Dictated by: Han Greenfield MD The radiology attending physician has personally reviewed this study, and had reviewed and/or edited this written report and agrees with it. Electronically signed by: Kam Boogie MD Narrative 09/26/2024 7:52 AM PERSONAL CARE AIDE EXAMINATION: RADIOLOGY CONSULTATION ON OUTSIDE IMAGING STUDY STUDY INITIALLY PERFORMED: ??09/25/2024 at 2:[address] [facility]. ?? TYPE OF STUDY: Multiple CT images of the head and cervical spine without contrast are provided at the time of this interpretation. The protocol was adequate to address the clinical question. The outside final report was not available at the time of this second opinion interpretation. TYPE OF CONSULTATION: ??Consult on outside imaging study with images submitted through [employer]. DATE OF CONSULTATION: 09/26/2024 1:46 AM. HISTORY: [...] INITIALLY PERFORMED: 09/25/2024 at 2:[address] [facility]. TYPE OF STUDY: Multiple CT images of the head and cervical spine without contrast are provided at the time of this interpretation. The protocol was adequate to address the clinical question. The outside final report was not available at the time of this second opinion interpretation. TYPE OF CONSULTATION: Consult on outside imaging study with images submitted through [employer]. DATE OF CONSULTATION: 09/26/2024 1:46 AM. HISTORY: [...] images may or may not represent the [place] source data set and thus may contain [...] Neuro CT Outside Consult (09/25/2024 7:30 PM PERSONAL CARE AIDE) Anatomical Region Laterality Modality N/A Computed Tomogra phy 09/26/2024 1:57 AM PERSONAL CARE AIDE Impressions 09/26/2024 7:52 AM PERSONAL CARE AIDE 1. ??No acute intracranial abnormality. 2. ??No [...] images may or may not represent the [place] source data set and thus may contain changes that may lower the accuracy of this second-opinion interpretation. Dictated by: Han Greenfield MD The radiology attending physician has personally reviewed this study, and had reviewed and/or edited this written report and agrees with it. Electronically signed by: Kam Boogie MD Narrative 09/26/2024 7:52 AM PERSONAL CARE AIDE EXAMINATION: RADIOLOGY CONSULTATION ON OUTSIDE IMAGING STUDY STUDY INITIALLY PERFORMED: ??09/25/2024 at 2:[address] [facility]. ?? TYPE OF STUDY: Multiple CT images [...] INITIALLY PERFORMED: 09/25/2024 at 2:[address] [facility]. TYPE OF STUDY: Multiple CT images of [...] images may or may not represent the [place] source data set and thus may contain [...] esult * POCT glucose (09/25/2024 6:48 PM PERSONAL CARE AIDE) Glucose, POC 145 70 - 199 mg/dL Blood 09/25/2024 6:48 PM PERSONAL CARE AIDE 09/25/2024 6:48 PM PERSONAL CARE AIDE us Sary Hoang MD LAB POCT ORDERABLES - DEV ICE Final Result [facility] Department [place] [address] * Screening Mammogram Bilateral W Ayaz (04/29/2016 [...] ?? Rey Cabrera M.D. ab/:05/07/2016 10:33:03 ?? Certified Forklift Operator: Sarah Kelsey)(Declan), [facility] letter sent: Additional Imaging ?? Reading [...] mammogram, 07/13/2014 mammogram, and 06/04/2013 mammogram - [facility]. ?? BREAST TISSUE: There are scattered areas [...] 07/20/2014 mammogram,07/13/2014 mammogram, and 06/04/2013 mammogram - [facility]. BREAST TISSUE: There are scattered areas of [...] be contacted. Rey Cabrera M.D. ab/:05/07/2016 10:33:03 Certified Forklift Operator: Sarah ONEIL (R)(M), [facility] letter sent: Additional Imaging Reading location: BI-RADS: 0 Additional Imaging Evaluation Needed [EOD] Jazmine BROWNE IMG MAMMO PROCEDURES Final Result from Last 3 Months or Most Recently Relevant to Health Maintenance Insurance MEDICARE SOLUTIONS [facility] MEDICARE [facility] MEDICARE Care Teams Epic Interface Analyst Relationship Specialty Start Date End Date Valeriano Cornell MD PCP - General Internal Medicine 11/21/20
--- OUTSIDE RECORDS SUMMARY | 2024-11-16 10:06 | XMS_ITS | Referral Summary ---
Author Organization [facility] [employer] Address [address] [place] [address] Care Team Providers Care Jigsaw Operator Name Role Phone Tiago Weinberg MD Primary Care Provider Jelly Heart APRN-TRIM SAWYER Unavailable Unavailable Source Comments [facility],non-owned Affiliates and Associated Physician Practices is amultiple site organization consisting of ambulatory clinics and hospital sitesin [place], [place], [place] and [place]. This disclosure is being madepursuant to the Care Everywhere program and may not contain all information available regarding this patient. Last updated 18.[facility] [employer] Allergies No known active allergies Medications * [...] 07/13/2014 1:22 PM CDT Other screening mammogram from Last 3 Months or Most Recently Relevant to Health Maintenance Results * RAKEL SCREENING IMPLANTS BILAT DIGITAL [...] the area I believe it represents. Tiago Wienberg MD MAMMO ORDERABLE S from Last 3 Months or Most Recently Relevant to Health Maintenance Care Teams Jigsaw Operator Relationship Specialty Start Date End Date Tiago Weinberg MD [address] [address] PCP - General Internal Medicine 06/01/13 Jelly Heart APRN-TRIM SAWYER [address] [address] Nurse Practitioner 07/06/14
--- OUTSIDE RECORDS SUMMARY | 2024-11-16 10:06 | XMS_ITS | Referral Summary ---
Author Organization [facility] [address] Address [address] [place] [address] Care Team Providers Care Concaving Machine Operator Name Role Phone Valeriano Cornlel MD Primary Care Provider Encounters Date Type Department Care Team Description 10/14/2024 1:00 PM PLUMBING INSTALLER Office Visit [facility] ENT [address] [facility] Medical Office Building [address] [place] [phone] Jacky Maxwell MD Facial laceration, initial encounter 09/25/2024 6:38 PM PLUMBING INSTALLER - 09/25/2024 10:27 PM PLUMBING INSTALLER Emergency [facility] Emergency Department [address] [place] [address] Sary Hoang MD Diagnosis unknown (Primary Dx); [...] Active Active Problems No known active problems Social History Tobacco Use Types Packs/Day Years [...] on file Legal Sex Female 2:02 AM PLUMBING INSTALLER Gender Identity Not on file Sexual Orientation Not on file Last Filed Vital Signs Vital Sign Reading Time Taken Comments Blood Pressure 160/79 09/25/2024 10:26 PM PLUMBING INSTALLER Pulse 65 09/25/2024 10:26 PM PLUMBING INSTALLER Temperature 36.6 ??C (97.9 ??F) 09/25/2024 5:42 PM CS T Respiratory Rate 16 09/25/2024 10:26 PM PLUMBING INSTALLER Oxygen Saturation 97% 09/25/2024 10:26 PM PLUMBING INSTALLER Inhaled Oxygen Concentration - - Weight 99.8 kg (220 lb) 10/14/2024 1:02 PM PLUMBING INSTALLER Height 162.6 cm (5' 4 ) 10/14/2024 1:02 PM PLUMBING INSTALLER Body Mass Index 37.76 10/14/2024 1:02 PM PLUMBING INSTALLER Plan of Treatment Not on file Procedures Procedure Name Priority Date/Time Associated Diagnosis Comments NEURO CT OUTSIDE CONSULT Routine 09/25/2024 7:33 PM PLUMBING INSTALLER Diagnosis unknown NEURO CT OUTSIDE CONSULT Routine 09/25/2024 7:30 PM PLUMBING INSTALLER Diagnosis unknown POCT GLUCOSE DEVICE Routine 09/25/2024 6 :48 PM PLUMBING INSTALLER SCREENING MAMMOGRAM BILATERAL W AYAZ Routine 04/29/2016 11:26 AM CDT from Last 3 Months or Most Recently Relevant to Health Maintenance Results * Neuro CT Outside Consult (09/25/2024 7:33 PM PLUMBING INSTALLER) Anatomical Region Laterality Modality N/A Computed Tomogra phy 09/26/2024 1:57 AM PLUMBING INSTALLER Impressions 09/26/2024 7:52 AM PLUMBING INSTALLER 1. ??No acute intracranial abnormality. 2. ??No [...] images may or may not represent the [place] source data set and thus may contain changes that may lower the accuracy of this second-opinion interpretation. Dictated by: Han Greenfield MD The radiology attending physician has personally reviewed this study, and had reviewed and/or edited this written report and agrees with it. Electronically signed by: Kam Boogie MD Narrative 09/26/2024 7:52 AM PLUMBING INSTALLER EXAMINATION: RADIOLOGY CONSULTATION ON OUTSIDE IMAGING STUDY STUDY INITIALLY PERFORMED: ??09/25/2024 at 2:27 PM at [facility]. ?? TYPE OF STUDY: Multiple CT [...] INITIALLY PERFORMED: 09/25/2024 at 2:27 PM at [facility]. TYPE OF STUDY: Multiple CT images [...] images may or may not represent the [place] source data set and thus may contain [...] Neuro CT Outside Consult (09/25/2024 7:30 PM PLUMBING INSTALLER) Anatomical Region Laterality Modality N/A Computed Tomogra phy 09/26/2024 1:57 AM PLUMBING INSTALLER Impressions 09/26/2024 7:52 AM PLUMBING INSTALLER 1. ??No acute intracranial abnormality. 2. ??No [...] images may or may not represent the [place] source data set and thus may contain changes that may lower the accuracy of this second-opinion interpretation. Dictated by: Han Greenfiedl MD The radiology attending physician has personally reviewed this study, and had reviewed and/or edited this written report and agrees with it. Electronically signed by: Kam Boogie MD Narrative 09/26/2024 7:52 AM PLUMBING INSTALLER EXAMINATION: RADIOLOGY CONSULTATION ON OUTSIDE IMAGING STUDY STUDY INITIALLY PERFORMED: ??09/25/2024 at 2:27 PM at [facility]. ?? TYPE OF STUDY: Multiple CT [...] INITIALLY PERFORMED: 09/25/2024 at 2:27 PM at [facility]. TYPE OF STUDY: Multiple CT images of the head and cervical spine without contrast are provided at the time of this interpretation. The protocol was adequate to address the clinical question. The outside final report was not available at the time of this second opinion interpretation. TYPE OF CONSULTATION: Consult on outside imaging study with images submitted through [employer]. DATE OF CONSULTATION: 09/26/2024 1:46 AM. HISTORY: [...] images may or may not represent the [place] source data set and thus may contain [...] esult * POCT glucose (09/25/2024 6:48 PM PLUMBING INSTALLER) Glucose, POC 145 70 - 199 mg/dL Blood 09/25/2024 6:48 PM PLUMBING INSTALLER 09/25/2024 6:48 PM PLUMBING INSTALLER us Sary Hoang MD LAB POCT ORDERABLES - DEV ICE Final Result [facility] [place] [address] * Screening Mammogram Bilateral W Ayaz (04/29/2016 [...] ?? Rey Cabrera M.D. ab/:05/07/2016 10:33:03 ?? Body Shop Worker: Sarah Kelsey)(Declan), [facility] letter sent: Additional Imaging ?? Reading [...] mammogram, 07/13/2014 mammogram, and 06/04/2013 mammogram - [facility]. ?? BREAST TISSUE: There are scattered [...] 07/20/2014 mammogram,07/13/2014 mammogram, and 06/04/2013 mammogram - [facility]. BREAST TISSUE: There are scattered areas [...] be contacted. Rey Cabrera M.D. ab/:05/07/2016 10:33:03 Body Shop Worker: Sarah Kelsey)(Declan), [facility] letter sent: Additional Imaging Reading location: BI-RADS: 0 Additional Imaging Evaluation Needed [EOD] Jazmine BROWNE IMG MAMMO PROCEDURES Final Result from Last 3 Months or Most Recently Relevant to Health Maintenance Insurance [employer] [facility] Address: [address] [place] [address] [employer] MED[employer]ARE Care Teams Concaving Machine Operator Relationship Specialty Start Date End Date Valeriano Cornell MD PCP - General Internal Medicine 11/21/20
--- OUTSIDE RECORDS SUMMARY | 2024-11-16 10:06 | XMS_ITS | Clinical Summary ---
Author Organization [facility] [email or web address] Address [address] [place] [address] Care Team Providers Care Bulb Grower Name Role Phone Tiago Weinberg MD Primary Care Provider Jelly Heart APRN-GALVANIZER ZINC Unavailable Unavailable Source Comments [facility],non-owned Affiliates and Associated Physician Practices is amultiple site organization consisting of ambulatory clinics and hospital sitesin [place], [place], [place] and [place]. This disclosure is being madepursuant to the Care Everywhere program and may not contain all information available regarding this patient. Last updated 18.[facility] [email or web address] Allergies No known active allergies Medications * [...] 09/02/1971 DTAP/TDAP/TD VACCINES (1 - Tdap) 1972 PNEUMOCOCCAL VACCINE 50+ (1 of 1 - PCV) 2003 ZOSTER VACCINE (1 of 2) 2003 MAMMOGRAM 07/13/2016 07/13/2014, 06/04/2013 COVID-19 VACCINE ( - 2023-2 5 season) 2024 INFLUENZA VACCINE (#1) 2024 DEPRESSION SCREENING 10/13/2024 Respiratory Syncytial Virus (RSV) Vaccine Pt: or [...] patient's age to complete this topic MENINGOCOCCAL (Group B) VACCINE Aged Out No longer eligible b ased on patient's age to complete this topic [...] represents. Tiago Weinberg MD MAMMO ORDERABLE S from Last 3 Months or Most Recently Relevant to Health Maintenance Care Teams Bulb Grower Relationship Specialty Start Date End Date Tiago Weinberg MD [address] [id number] PCP - General Internal Medicine 06/01/13 Jelly Heart APRN-GALVANIZER ZINC [address] [address] Nurse Practitioner 07/06/14
--- OUTSIDE RECORDS SUMMARY | 2024-11-16 10:06 | XMS_ITS | Patient Health Summary ---
Author Organization [facility] Address [address] [place] [address] Care Team Providers Care Mucker Operator Name Role Phone Tiago Weinberg MD Primary Care Provider Jelly Heart APRN-DIETETICS DIRECTOR Unavailable Unavailable Note from [facility],non-owned Affiliates and Associated Physician Practices is amultiple site organization consisting of ambulatory clinics and hospital sitesin [place], [place], [place] and [place]. This disclosure is being madepursuant to the Care Everywhere program and may not contain all information available regarding this patient. Last updated 18.[facility] Allergies No known active allergies Medications [...] Vial Resulting Agency Comment [facility] [place] [address] [facility] ??[place] [phone] Jelly Heart APRN-DIETETICS DIRECTOR LAB - PATHOLOGY/CYTO LOGY ORDERABLES [facility] ACCOUNT [...] cancer. Jelly MATIAS MAMMO ORDERABLES Care Teams Mucker Operator Relationship Specialty Start Date End Date Tiago Weinberg MD [address] [id number] PCP - General Internal Medicine 06/01/13 Jelly Heart APRN-CNP [address] [address] Nurse Practitioner 07/06/14
--- OUTSIDE RECORDS SUMMARY | 2024-11-16 10:07 | XMS_ITS | Data Portability ---
[facility] [address] [address] Care Team Providers Care Provisioning Specialist Name Role Phone SANTOS CORNELL Primary Care Provider Unavailabl e Assessment Encounter Date Assessment Date Assessment LastModified by Organization Details LastModified Time 01/06/2024 01/06/2024 She will continue to follow-up Ortho for her left knee we will obtain blood work for biochemical management of disease processes and medications we will continue with her current medical strategy for now see me back in 4 months. [email or web address] Not available 01/10/2024 17:57:30 05/03/2024 05/03/2024 last blood work was reviewed continue current therapy sugar was up a little bit healthy lifestyle care instructions she will follow up in 4 months with full blood work [email or web address] Not available 05/15/2024 21:41:42 Plan of Treatment Reminders Order Date Submit Date Provider Last Modified By Organization Details Last Modified Time Details Appointments ANY 15 2024 09:15A M Santos Cornell MD Not available Not available Not available Lab CBC w/ auto diff 2023 024 [facility], [address], [place], [address], 01/07/2024 08:24:08 lipid panel, serum 2023 024 [facility], [address], [place], [address], 01/07/2024 08:24:07 CMP, serum or plasma 2023 024 [facility], [address], [place], [address], 01/07/2024 08:24:07 Referral None recorded . Procedures None recorded . Surgeries None recorded . Imaging None recorded . Medication Orders None recorded . Patient TargetsNo targets recorded. 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 Referral for Type 2 diabetes mellitus Referring Physician: Santos Cornell, Internal Medicine, Encounter Date: 11/15/2024 Results Created Date Observation Date Name Description Value Unit Range Abnormal Flag Note LastModifiedBy Organization Detail LastModifiedTime 01/06/2001/07/2024 LIPID PANEL cholesterol, total 164 mg/dL 100-19 9 Not Available [facility] ([facility]) [address] [place], [address], 01/07/2024 08:24:07 01/06/20 24 01/07/2024 LIPID PANEL triglyceride s 181 mg/dL 0-149 above high normal Not Available [facility] ([facility]) [address] [place], [address], 01/07/2024 08:24:07 01/06/20 24 01/07/2024 LIPID PANEL HDL cholesterol 62 mg/dL >39 Not Available [facility]) [address] [place], [address], 01/07/2024 08:24:07 01/06/20 24 01/07/2024 LIPID PANEL VLDL cholesterol linda 30 mg/dL 5-40 Not Available [facility] ([facility]) [address] [place], [address], 01/07/2024 08:24:07 01/06/20 24 01/07/2024 LIPID PANEL LDL chol calc ([facility]) 72 mg/dL 0-99 Not Available [facility]) [address] [place], [address], 01/07/2024 08:24:07 01/06/20 24 01/07/2024 COMP. METAB OLIC PANEL (14) glucose 157 mg/dL 70-99 above high normal Not Available [facility] ([facility]) [address] [place], [address], 01/07/2024 08:24:07 01/06/20 24 01/07/2024 COMP. METAB OLIC PANEL (14) BUN 10 mg/dL 8-27 Not Available [facility] ([facility]) [address] [place], [address], 01/07/2024 08:24:07 01/06/20 24 01/07/2024 COMP. METAB OLIC PANEL (14) creatinine 0.79 mg/dL 0.57-1 .00 Not Available [facility] ([facility]) [address] [place], [address], 01/07/2024 08:24:07 01/06/20 24 01/07/2024 COMP. METAB OLIC PANEL (14) eGFR 80 mL/mi n/1.7 3 >59 Not Available [facility] ([facility]) [address] [place], [address], 01/07/2024 08:24:07 01/06/20 24 01/07/2024 COMP. METAB OLIC PANEL (14) BUN/creatini ne ratio 13 12-28 Not Available [facility] ([facility]) [address] [place], [address], 01/07/2024 08:24:07 01/06/20 24 01/07/2024 COMP. METAB OLIC PANEL (14) sodium 143 mmol/ L 134-14 4 Not Available [facility] ([facility]) [address] [place], [address], 01/07/2024 08:24:07 01/06/20 24 01/07/2024 COMP. METAB OLIC PANEL (14) potassium 4.5 mmol/ L 3.5-5. 2 Not Available [facility] ([facility]) [address] [place], [address], 01/07/2024 08:24:07 01/06/20 24 01/07/2024 COMP. METAB OLIC PANEL (14) chloride 104 mmol/ L 96-106 Not Available [facility] ([facility]) [address] [place], [address], 01/07/2024 08:24:07 01/06/20 24 01/07/2024 COMP. METAB OLIC PANEL (14) carbon dioxide, total 25 mmol/ L 20-29 Not Available [facility] ([facility]) [address] [place], [address], 01/07/2024 08:24:07 01/06/20 24 01/07/2024 COMP. METAB OLIC PANEL (14) calcium 10.1 mg/dL 8.7-10 .3 Not Available [facility] ([facility]) [address] [place], [address], 01/07/2024 08:24:07 01/06/20 24 01/07/2024 COMP. METAB OLIC PANEL (14) protein, total 6.9 g/dL 6.0-8. 5 Not Available [facility] ([facility]) [address] [place], [address], 01/07/2024 08:24:07 01/06/20 24 01/07/2024 COMP. METAB OLIC PANEL (14) albumin 4.6 g/dL 3.9-4. 9 Not Available [facility] ([facility]) [address] [place], [address], 01/07/2024 08:24:07 01/06/20 24 01/07/2024 COMP. METAB OLIC PANEL (14) globulin, total 2.3 g/dL 1.5-4. 5 Not Available [facility] ([facility]) [address] [place], [address], 01/07/2024 08:24:07 01/06/20 24 01/07/2024 COMP. METAB OLIC PANEL (14) A/G ratio 2.0 1.2-2. 2 Not Available [facility] ([facility]) [address] [place], [address], 01/07/2024 08:24:07 01/06/20 24 01/07/2024 COMP. METAB OLIC PANEL (14) bilirubin, total 0.6 mg/dL 0.0-1. 2 Not Available [facility] ([facility]) [address] [facility], [place], [address], 01/07/2024 08:24:07 01/06/20 24 01/07/2024 COMP. METAB OLIC PANEL (14) alkaline phosphatase 74 IU/L 44-121 Not Available [facility] ([facility]) [address] [place], [address], 01/07/2024 08:24:07 01/06/20 24 01/07/2024 COMP. METAB OLIC PANEL (14) AST (SGOT) 28 IU/L 0-40 Not Available [facility] ([facility]) [address] [place], [address], 01/07/2024 08:24:07 01/06/20 24 01/07/2024 COMP. METAB OLIC PANEL (14) ALT (SGPT) 54 IU/L 0-32 above high normal Not Available [facility] ([facility]) [address] [place], [address], 01/07/2024 08:24:07 01/06/20 24 01/07/2024 CBC WITH DIFFE RENTI AL/PL ATELE T WBC 11.1 x10e3 /uL 3.4-10 .8 above high normal Not Available [facility] ([facility]) [address] [facility], [place], [address], 01/07/2024 08:24:08 01/06/20 24 01/07/2024 CBC WITH DIFFE RENTI AL/PL ATELE T RBC 4.58 x10e6 /uL 3.77-5 .28 Not Available [facility] ([facility]) [address] [facility], [place], [address], 01/07/2024 08:24:08 01/06/20 24 01/07/2024 CBC WITH DIFFE RENTI AL/PL ATELE T hemoglobin 14.1 g/dL 11.1-1 5.9 Not Available [facility] ([facility]) [address] [facility], [place], [address], 01/07/2024 08:24:08 01/06/20 24 01/07/2024 CBC WITH DIFFE RENTI AL/PL ATELE T hematocrit 42.4 % 34.0-4 6.6 Not Available [facility] ([facility]) [address] [place], [address], 01/07/2024 08:24:08 01/06/20 24 01/07/2024 CBC WITH DIFFE RENTI AL/PL ATELE T MCV 93 fL 79-97 Not Available [facility] ([facility]) [address] [place], [address], 01/07/2024 08:24:08 01/06/20 24 01/07/2024 CBC WITH DIFFE RENTI AL/PL ATELE T MCH 30.8 pg 26.6-3 3.0 Not Available [facility] ([facility]) [address] [place], [address], 01/07/2024 08:24:08 01/06/20 24 01/07/2024 CBC WITH DIFFE RENTI AL/PL ATELE T MCHC 33.3 g/dL 31.5-3 5.7 Not Available [facility] ([facility]) [address] [facility], [place], [address], 01/07/2024 08:24:08 01/06/20 24 01/07/2024 CBC WITH DIFFE RENTI AL/PL ATELE T RDW 12.8 % 11.7-1 5.4 Not Available [facility] ([facility]) [address] [facility], [place], [address], 01/07/2024 08:24:08 01/06/20 24 01/07/2024 CBC WITH DIFFE RENTI AL/PL ATELE T platelets 217 x10e3 /uL 150-45 0 Not Available [facility] ([facility]) [address] [facility], [place], [address], 01/07/2024 08:24:08 01/06/20 24 01/07/2024 CBC WITH DIFFE RENTI AL/PL ATELE T neutrophils 55 % notest ab. Not Available [facility] ([facility]) [address] [facility], [place], [address], 01/07/2024 08:24:08 01/06/20 24 01/07/2024 CBC WITH DIFFE RENTI AL/PL ATELE T lymphs 38 % notest ab. Not Available [facility] ([facility]) [address] [facility], [place], [address], 01/07/2024 08:24:08 01/06/20 24 01/07/2024 CBC WITH DIFFE RENTI AL/PL ATELE T monocytes 5 % notest ab. Not Available [facility] ([facility]) [address] [facility], [place], [address], 01/07/2024 08:24:08 01/06/20 24 01/07/2024 CBC WITH DIFFE RENTI AL/PL ATELE T eos 1 % notest ab. Not Available [facility] ([facility]) [address] [facility], [place], [address], 01/07/2024 08:24:08 01/06/20 24 01/07/2024 CBC WITH DIFFE RENTI AL/PL ATELE T basos 1 % notest ab. Not Available [facility] ([facility]) [address] [facility], [place], [address], 01/07/2024 08:24:08 01/06/20 24 01/07/2024 CBC WITH DIFFE RENTI AL/PL ATELE T neutrophils (absolute) 6.2 x10e3 /uL 1.4-7. 0 Not Available [facility] ([facility]) [address] [facility], [place], [address], 01/07/2024 08:24:08 01/06/20 24 01/07/2024 CBC WITH DIFFE RENTI AL/PL ATELE T lymphs (absolute) 4.2 x10e3 /uL 0.7-3. 1 above high normal Not Available [facility] ([facility]) [address] [facility], [place], [address], 01/07/2024 08:24:08 01/06/20 24 01/07/2024 CBC WITH DIFFE RENTI AL/PL ATELE T monocytes(ab solute) 0.6 x10e3 /uL 0.1-0. 9 Not Available [facility] ([facility]) [address] [facility], [place], [address], 01/07/2024 08:24:08 01/06/20 24 01/07/2024 CBC WITH DIFFE RENTI AL/PL ATELE T eos (absolute) 0.1 x10e3 /uL 0.0-0. 4 Not Available [facility] ([facility]) [address] [facility], [place], [address], 01/07/2024 08:24:08 01/06/20 24 01/07/2024 CBC WITH DIFFE RENTI AL/PL ATELE T baso (absolute) 0.1 x10e3 /uL 0.0-0. 2 Not Available [facility] ([facility]) [address] [facility], [place], [address], 01/07/2024 08:24:08 01/06/20 24 01/07/2024 CBC WITH DIFFE RENTI AL/PL ATELE T immature granulocytes 0 % notest ab. Not Available [facility] ([facility]) [address] [facility], [place], [address], 01/07/2024 08:24:08 01/06/20 24 01/07/2024 CBC WITH DIFFE RENTI AL/PL ATELE T immature grans (abs) 0.0 x10e3 /uL 0.0-0. 1 Not Available [facility] ([facility]) [address] [facility], [place], [address], 01/07/2024 08:24:08 09/25/20 24 09/25/2024 CT, brain , w/o contr ast No observ ation record ed. [address], [place], [address], 09/27/2024 10:20:50 09/25/20 24 09/25/2024 CT, face, w/o contr ast No observ ation record ed. [address], [place], [address], 09/27/2024 10:23:43 Result Notes None recorded. Problems Name Problem SNOMED Code Status Onset Date Resolution Date Notes Provider Name and Address Organization Details Recorded Time Essential hypertension 97470351 Active 2023 Kirsten Jacobson [place] null, [place] [facility] 12:13:46 Hyperlipidemia 33718943 Active 2023 Kirsten Jacobson [place], [place] [facility] 4 12:13:47 Type 2 diabetes mellitus 99200975 Active 2023 Kirsten Jacobson [place] null, [place] [facility] 4 12:13:48 Anxiety 59414436 Active 2023 Santos Cornell MD Attn: Marcie song,[address] [facility], [place], [address], [facility] 17:57:11 Problem Notes None recorded. Procedures Surgical History Date Name Laterality Status Provider Name and Address Organization Details Recorded Time Cholecystectomy completed Nila Hernandez MA [facility] 01/06/2024 11:25:35 Breast Surgery completed Nila Hernandez MA [facility] 01/06/2024 11:25:44 Imaging Results Imaging Date Name Status LastModified by [facility] Details LastModified Time 09/25/2024 CT, brain, w/o contrast completed [address] [place] [address], [address], 09/27/2024 10:20:50 09/25/2024 CT, face, w/o contrast completed [address] [place] [address], [address], 09/27/2024 10:23:43 Procedure Notes None recorded. Medical Equipment None Reported. Allergies No known drug allergies Medications Name Sig Start Date Stop Date Status Note LastModified by Organization Details LastModified Time atorvastati n 10 mg tablet TAKE 1 TABLET BY MOUTH EVERY DAY 2023 active Not Available Not Available Not Avai lable azithromyci n 250 mg tablet 01/04 completed Not Available Not Available Not Available sumatriptan 100 mg tablet TAKE ONE TABLET BY MOUTH EVERY DAY active Not Available Not Available No t Available amlodipine 2.5 mg tablet TAKE 1 TABLET BY MOUTH EVERY DAY 2023 active Not Available Not Available Not Avai lable bacitracin zinc 500 unit/gram topical ointment APPLY TOPICALLY TWICE DAILY 11/15 completed Not Available Not Available Not Available ciprofloxac in 500 mg tablet TAKE 1 TABLET BY MOUTH TWICE DAILY 11/15 completed Not Available Not Available Not Available naproxen sodium 550 mg tablet TAKE 1 TABLET BY MOUTH EVERY 12 HOURS NEEDED 01/05 completed Not Available Not Available Not Available codeine 10 mg-guaifene sin 100 mg/5 mL oral liquid TAKE 5 ML BY MOUTH EVERY 6 HOURS NEEDED. MAY TAKE 5-10 MLS DIRECTED 01/04 completed Not Available Not Available Not Available propranolol ER 120 mg capsule,24 hr,extended release TAKE 1 CAPSULE BY MOUTH EVERY DAY 2023 active Not Available Not Available Not Avai lable lorazepam 1 mg tablet TAKE 1 TABLET BY MOUTH THREE TIMES DAILY NEEDED MUST LAST 30 DAYS. active Not Available Not Available No t Available fluticasone propionate 50 mcg/actuati on nasal spray,suspe nsion INSTILL 2 SPRAYS INTRANSAL LY INTO BOTH NOSTRILS NEEDED FOR CONGESTIO N 11/15 completed Not Available Not Available Not Available metformin ER 500 mg tablet,exte nded release 24 hr TAKE 2 TABLETS BY MOUTH AT BEDTIME 2023 active Not Available Not Available Not Avai lable oxycodone 5 mg tablet TAKE 1 TABLET BY MOUTH EVERY 4 HOURS NEEDED FOR PAIN 11/15 completed Not Available Not Available Not Available Vitals Date Recorded Body weight Body mass index (BMI) Body height Oxygen saturation Oxygen saturation in Arterial blood by Pulse oximetry Heart rate Systolic blood pressure Diastolic blood pressure Provider Name and Address Organization Details Last Updated DateTime 4 88497.5 4 g 37.2 kg/m2 162.56 cm 98 % 98 % 80 /min 118 mm[Hg] 72 mm[Hg] Nila Hernandez MA [facility] 4 11:32:10 Date Recorded Body height Body mass index (BMI) Body weight Provider Name and Address Organization Details Last Updated DateTime 05/03/2024 162.56 cm 37.8 kg/m2 66425.75 g Dee Dee Rodriguez MA [facility] 05/03/2024 10:27:19 Date Recorded Body height Body mass index (BMI) Body weight Heart rate Oxygen saturation Oxygen saturation in Arterial blood by Pulse oximetry Systolic blood pressure Diastolic blood pressure Provider Name and Address Organization Details Last Updated DateTime 5 162.56 cm 38.1 kg/m2 401069. 15 g 62 /min 97 % 97 % 128 mm[Hg] 84 mm[Hg] Morelia Diaz MA [facility] 5 11:27:39 Social History Question Answer Notes LastModified by Organizat ion Details LastModified Time Tobacco Smoking Status Never Smoker Nila Hernandez MA [facility], [place] - [facility] 01/06/2024 11:24:38 Do You Have An Advance Directive? Yes Information n ot available 01/06/2024 What Is Your Level Of Alcohol Consumption? None Information not available 01/06/2024 Are You Blind Or Do You Have Difficulty Seeing? No Information n ot available 01/06/2024 What Is Your Level Of Caffeine Consumption? None Information not available 01/06/2024 In The 14 Days Before Symptom Onset, Have You Had Close Contact With A Laboratory-confirm ed COVID-19 While That Case Was Ill? No Information n ot available 11/15/2024 In The 14 Days Before Symptom Onset, Have You Had Close Contact With A Person Who Is Under Investigation For COVID-19 While That Person Was Ill? No Information not available 11/15/2024 Have You Been To An Area Known To Be High Risk For COVID-19? No Information not available 11/15/2024 Are You Deaf Or Do You Have Serious Difficulty Hearing? No Information not available 01/06/2024 What Type Of Diet Are You Following? REGULAR Information n ot available 01/06/2024 Are There Any Guns Present In Your Home? No crevisma Information not available 05/03/2024 What Was The Date Of Your Most Recent Tobacco Screening? 11/15/2024 Information not available 11/15/2024 What Is Your Relationship Status? Information not available 01/06/2024 Do You Use Your Seat Belt Or Car Seat Routinely? Yes Information not available 01/06/2024 Do You Have Smoke And Carbon Monoxide Detectors In Your Home? Yes Information not available 01/06/2024 Do You Feel Stressed (tense, Restless, Nervous, Or Anxious, Or Unable To Sleep At Night)? NL4531-7 Information not available 01/06/2024 Do You Use Any Illicit Or Recreational Drugs? No Information not available 01/06/2024 Do You Use Sunscreen Routinely? Yes Information not available 01/06/2024 Has Tobacco Cessation Counseling Been Provided? No Information not available 01/06/2024 Do You Or Have You Ever Used Any Other Forms Of Tobacco Or Nicotine? No Information not available 01/06/2024 Sex: Female Functional Status Question Answer Note LastModified by Organization D etails LastModified Time Are you able to care for yourself? Yes Information n ot available 01/06/2024 What is your exercise level? None Information not available 01/06/2024 Mental Status None recorded. Family History Relationship Description Onset Age of this Age Resolved Age Notes LastModified by Organization Details LastModified Time Father Heart disease [email or web address] Not available 12/12 11:24:13 Father Migraine [email or web address] Not availa ble 01/06/2024 11:24:22 Mother Heart disease [email or web address] Not available 12/12 11:24:13 Paternal Uncle Heart disease [email or web address] Not available 12/12 11:24:13 Sister Migraine [email or web address] Not availa ble 01/06/2024 11:24:22 Medical History Condition Response Coronary Artery Disease N Other N High Blood Pressure Y Atrial Fibrillation N Kidney or Bladder Problems N Thyroid Problems N GI Problems N Depression N COPD N Blood Clots N Have you had a mammogram in the last yea r? N Skin Problems N Anemia N Heart Attack (AR) N Anxiety Disorder Y Diabetes Y Muscle, Joint, or Bone Problems N Seizures/Epilepsy N Have you had a colonoscopy in the last 1 0 years? N Acid Reflux (GERD) N Cancer N Stroke N Asthma N Allergies N Have you had a PSA blood test in the las t year? N High Cholesterol Y Hepatitis N Liver Disease N Headaches Y Heart Failure N Osteoporosis N Gynecological History Statement/Question Response If Post Menopausal, Age at Menopause 49 Obstetrics History GPAL:G 3 P 3 0 0 3 Type Value Full Term 3 Living 3 Total 3 Immunizations Vaccine Type Date Status Note Provider Nam e and Address Organization Details Recorded Time Influenza, split virus, quadrivalent, preservative 8 completed Isabel [place] null, [place] [facility] 11/12/2024 11:58:43 Influenza, high-dose, quadrivalent, PF 2 completed Isabel [place] [facility] 11/12/2024 11:58:44 Influenza, high-dose, quadrivalent, PF 0 completed Isabel [place] [facility] 11/12/2024 11:58:44 Influenza, high-dose, quadrivalent, PF 1 completed Isabel [place] [facility] 11/12/2024 11:58:44 COVID-19, mRNA, LNP-S, PF, 30 mcg/0.3 mL dose 1 completed Isabel [place] [facility] 11/12/2024 11:58:44 COVID-19, mRNA, LNP-S, PF, 30 mcg/0.3 mL dose 1 completed Isabel [place] [facility] 11/12/2024 11:58:44 COVID-19, mRNA, LNP-S, PF, 30 mcg/0.3 mL dose 1 completed Isabel [place] [facility] 11/12/2024 11:58:44 COVID-19, mRNA, LNP-S, PF, 30 mcg/0.3 mL dose, ela-sucrose 2 completed Isabel [place] [facility] 11/12/2024 11:58:44 COVID-19, mRNA, LNP-S, bivalent, PF, 30 mcg/0.3 mL dose 2 completed Isabel [place] [facility] 11/12/2024 11:58:44 pneumococcal polysaccharide PPV23 0 completed Isabel [place] [facility] 11/12/2024 11:58:44 Pneumococcal conjugate PCV 13 2 completed Isabel [place] [facility] 11/12/2024 11:58:44 Influenza, high-dose, trivalent, PF 0 completed Isabel [place] [facility] 11/12/2024 11:58:44 Influenza, split virus, trivalent, PF 8 completed Isabel [place] [facility] 11/12/2024 11:58:44 Influenza, split virus, trivalent, PF 6 completed Isabel [place] [facility] 11/12/2024 11:58:44 Influenza, split virus, quadrivalent, PF 8 completed Isabel Gonzales Located within [facility] 11/12/2024 11:58:44 Past Encounters Encounter ID Performer Location Encounter Start Date Encounter Closed Date Diagnosis/Indication Diagnosis SNOMED-CT Code Diagnosis ICD10 Code Diagnosis Note [id number] Santos Cornell MD [facility] ([facility]) [address] [place] [phone] 01/06/2024 11:10:02 01/06/2024 12:14:23 Essential hypertension 13336726 I10 Hyperlipidemia 98363759 E78.5 Type 2 lele betes mellitus 26225230 E11.9 Anxiety 93174534 F41.9 [id number] Santos Cornell MD [facility] [address] [place] [phone] 05/03/2024 10:23:00 05/03/2024 11:53:55 Obesity 249634675 E66.8 Hyperlipidemia 03438397 E78.5 Essential hypertension 47456951 I10 Anxiety 84285034 F41.9 Type 2 lele betes mellitus 06475806 E11.9 [id number] Mariella Ballesteros MA [facility] [place] [address] [place] [phone] 11/15/2024 10:55:09 11/15/2024 12:23:16 Body mass index 30+ - obesity 035579891 Z68.38 Obesity 422308896 E66.9 Essential hypertension 76059963 I10 Hyperlipidemia 62427830 E78.5 Type 2 lele betes mellitus 23158080 E11.9 Screening for malignant neoplasm of colon 871449815 Z12.11 Health Concerns Section Related Observation LastModified by Organization Detai ls LastModified Time None Recorded Concern Status LastModified by Organization Details LastModified Time None Recorded Advance Directives Directive Y: Payers Encounter Date Sequence Insurance Name Policy Number Policy Solomon Covered Member ID Solomon Member ID Guarantor Name 01/06/2024 1 [employer] (MEDICARE REPLACEMENT PPO) [id number] 1 Kristine García [id number] Kristine García 05/03/2024 1 [employer] (MEDICARE REPLACEMENT PPO) [id number] 1 Kristine García [id number] Kristine García Notes Date Note Type Note Provider Name and Address Organization Details Recorded Time 01/06/2024 text/html Hypertension no headache no dizziness rhinitis stable on fluticasone anxiety doing well on lorazepam diabetes no polyphagia polydipsia still struggling with her knee issues Santos Cornell MD Attn: [address] [place], [address], [facility] 01/10/2024 17:57:53 05/03/2024 text/html Hypertension no headache no dizziness rhinitis stable on fluticasone anxiety doing well on lorazepam diabetes no polyphagia polydipsia Santos Cornell MD Attn: [address] [place], [address], [facility] 05/15/2024 21:41:59 OBGyn Episode No OBEpisode recorded.
--- OUTSIDE RECORDS SUMMARY | 2024-11-16 10:07 | XMS_ITS | Clinical Summary ---
Author Organization [facility] Address [address] [place] [address] Care Team Providers Care Control Panel Operator Name Role Phone Unavailable Primary Care Provider Unavailabl e Allergies No known active allergies Medications amLODIPine (NORVASC) 2.5 mg tablet Take 1 [...] Encounters Date Type Department Care Team Description 11/09/2024 External Device Data [facility] ABSTRACTION Provider, Abstract 11/03/2024 External Device Data [facility] ABSTRACTION Provider, Abstract 11/03/2024 External Device Data [facility] ABSTRACTION Provider, Abstract from Last 3 Months Social History Tobacco Use Types Packs/Day Years Used Date Smoking Tobacco: Never Smokeless Tobacco: Never Tobacco Cessation:Counseling Given: Not Answered Comments Unknown Sex and Gender Information Value Date Recorded Sex Assigned at Not on file Legal 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 Gender Identity Not on file Sexual Orientation [...] Health Maintenance Due Date Last Done Comments DIABETES ANNUAL FOOT EXAM 1971 DIABETES ANNUAL RETINAL EXAM 1971 DIABETES HBA1C Q 6 MONTHS 1971 DIABETES MICROALBUMIN ANNUAL SCREEN 1971 LDL CHOLESTEROL ANNUAL 1971 DTAP/TDAP/TD VACCINES (1 - Tdap) 1972 PNEUMOCOCCAL VACCINE 65+ YEA RS (1 of 2 - PCV) 1972 COLORECTAL SCREENING 1998 Colorectal Cancer Screening 1998 FIT-DNA Q 3 years 1998 FIT/FOBT Q 1 year 1998 Flex Sig/CT Colonography Q 5 years 1998 ZOSTER VACCINE (1 of 2) 2003 BREAST CANCER SCREENING 05/14/2017 05/14/20 16, 04/29/2016, 07/20/2014, Additional history exists OSTEOPOROSIS SCREENING 2018 INFLUENZA VACCINE (#1) 2024 RSV VACCINE (60+ or ) (1 - 1-dose 75+ series) 2028 Insurance [employer] [facility]
[2024-11-16 10:18] LABS: Basophils Percent Auto 0.4 % (0.2-1.2); Eosinophils Absolute Auto 0.1 K/mm3 (0-0.3); Eosinophils Percent Auto 1.4 % (0-4.4); Hematocrit 38.6 % (37.0-47.0); Immature Granulocyte Absolute 0.02 K/mm3 (0.00-0.031); Immature Granulocyte Percent A 0.3 % (0-0.5); Lymphocytes Absolute Auto 3.13 K/mm3 (0.9-3.2); Lymphocytes Percent Auto 40.7 % (18.3-44.2); Mean Corpuscular HGB Conc 33.7 g/dl (32-36); Mean Corpuscular Hemoglobin 31.4 pg (26-34); Mean Corpuscular Volume 93.2 fl (80-100); Monocytes Absolute Auto 0.3 K/mm3 (0.1-0.6); Monocytes Percent Auto 4.3 % (2.6-8.5); Neutrophils Absolute Auto 4.1 K/mm3 (1.3-6.7); Neutrophils Percent Auto 52.9 % (45.5-73.1); Platelet Count Result 194 k/mm3 (150-375); Red Blood Count 4.14 M/mm3 (4.2-5.4); Red Cell Distribution Width 13.2 % (11.5-14.5); White Blood Count 7.7 K/mm3 (4.5-10.0)
[2024-11-16 10:42] LABS: Potassium 3.7 mmol/L (3.4-5.0); Sodium 141 mmol/L (137-145)
[2024-11-16 10:53] LABS: LDL Cholesterol Direct 56 mg/dL
[2024-11-16 11:24] LABS: Alanine Aminotransferase 55 U/L (6-35); Alkaline Phosphatase 63 U/L (38-126); Anion Gap 11 mmol/L (4-12); Aspartate Amino Transferase 37 U/L (14-36); Bilirubin,Total 0.7 mg/dL (0.2-1.3); Blood Urea Nitrogen 8 mg/dL (7-17); Calcium 8.8 mg/dL (8.4-10.2); Carbon Dioxide 25 mmol/L (22-30); Chloride 105 mmol/L (98-107); Cholesterol 143 mg/dL (0-200); Estimated Glomerular Filt Rate > 60; Glucose 143 mg/dL (65-110); HDL Direct 57 mg/dL; Triglycerides 155 mg/dL (<150)
== END 2024-11-16 09:34 | disposition home or self-care (01) ==
PROVIDERS: PCP Internal Medicine; Visit Provider Internal Medicine
DX: E78.5 Hyperlipidemia, unspecified (principal); E11.9 Type 2 diabetes mellitus without complications; I10 Essential (primary) hypertension
CPT/HCPCS: 36415; 80053; 80061; 83036; 85025

== ENCOUNTER 2025-02-04 02:12 | Day surgery (SDC) | payer MEDICARE, SELFPAY ==
[2025-01-24 14:14] VITALS: BMI 37.8
--- OUTSIDE RECORDS SUMMARY | 2025-02-04 02:15 | XMS_ITS | Clinical Summary ---
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 Gender Identity Not on file Sexual Orientation Not on file Obstetrics History Last Filed Vital Signs Vital Sign Reading Time Taken Comments Blood Pressure 160/79 09/25/2024 10:26 PM CHOKER SETTER Pulse 65 09/25/2024 10:26 PM CHOKER SETTER Temperature 36.6 C (97.9 F) 09/25/2024 5:42 PM CHOKER SETTER Respiratory Rate 16 09/25/2024 10:26 PM CHOKER SETTER Oxygen Saturation 97% 09/25/2024 10:26 PM CHOKER SETTER Inhaled Oxygen Concentration - - Weight 99.8 kg (220 lb) 10/14/2024 1:02 PM CHOKER SETTER Height 162.6 cm (5' 4 ) 10/14/2024 1:02 PM CHOKER SETTER Body Mass Index 37.76 10/14/2024 1:02 PM CHOKER SETTER Plan of Treatment Health Maintenance Due Date Last Done Comments Colon Cancer Screening-Colonoscopy 1953 Depression Screening 1953 Fall Risk Assessment 1953 Hepatitis C Screening 1953 Osteoporosis Screening-Bone Density Scan 1953 Hepatitis B Screening 1971 Zoster Vaccine (1 of 2) 2003 Breast Cancer Screening-Mammogram 04/29/2017 016, 06/04/2013 Well Visit 65+ 2018 Covid-19 Vaccine (7 - 2023-2 5 season) 2025 08/02/2024, 07/31/2022, 02/18/2022, Additional history exists DTaP/Tdap/Td Vaccine (2 - Td or Tdap) 09/25/2034 09/25/2024 Pneumococcal vaccine 65+ Completed 08/22/2022, 1112/2019 Influenza Vaccine Completed 08/02/2024, , 09/24/2021, Additional history exists Procedures Procedure Name Priority Date/Time Associated Diagnosis Comments SCREENING MAMMOGRAM BILATERAL W GABBY Routine 04/29/2016 11:26 AM CDT from Last 3 Months or Most Recently Relevant to Health Maintenance Results * Screening Mammogram Bilateral W Gabby (04/29/2016 11:26 AM CDT) Anatomical Region Laterality Modality Breast Bilateral Mammography 04/29/2016 11:2 6 AM CDT Impressions 05/07/2016 10:33 AM CDT BI-RAD 0 ADDITIONAL IMAGING EVALUATION NEEDED 1. The asymmetry in the superior left breast, posterior depth seen on the MLO implant displaced view only is indeterminate. Further evaluation with diagnostic mammography and possible diagnostic ultrasound is recommended. 2. No mammographic evidence of malignancy in the right breast. A 1 year screening right mammogram is recommended. The patient has been or will be contacted. Rey Cabrera M.D. ab/:05/07/2016 10:33:03 Radiation Therapy Technician: Sarah Kelsey)(Declan), [facility] letter sent: Additional Imaging Reading location: BI-RADS: 0 Additional Imaging Evaluation Needed [EOD] Narrative 05/07/2016 10:33 AM CDT - MG BILATERAL DIGITAL SCREENING MAMMOGRAM 3D/2D WITH CAD WITH MEDIOLATERAL OBLIQUE CRANIOCAUDAL: 04/29/2016 The study was acquired using full field digital technology and interpreted from soft copy. Current study was also evaluated with R2 CAD. 2D digital mammographic views, as well as 3D digital tomosynthesis were performed in the CC and MLO projections. CLINICAL: Routine mammogram. Denies any problems today. No personal history of breast cancer. No family history of breast cancer. COMPARISONS: Comparison is made to exams dated: 07/20/2014 mammogram, 07/13/2014 mammogram, and 06/04/2013 mammogram - [facility]. BREAST TISSUE: There are scattered areas of fibroglandular density. FINDINGS: There are bilateral subglandular silicone breast implants. There is an asymmetry in the superior left breast, posterior depth seen on the MLO implant displaced view only. There are benign intramammary lymph nodes in the bilateral breasts. There are no other suspicious [...] be contacted. Rey Cabrera M.D. ab/:05/07/2016 10:33:03 Radiation Therapy Technician: Sarah Kelsey)(M), [facility] letter sent: Additional Imaging Reading location: BI-RADS: 0 Additional Imaging Evaluation Needed [EOD] Jazmine BROWNE IMG MAMMO PROCEDURES Final Result from Last 3 Months or Most Recently Relevant to Health Maintenance Insurance UHC MEDICARE ADVANTAGE [facility] MEDICARE Address: [facility] [address] [place] [address] [facility] MEDICARE [facility] MED[facility] Address: [address] [place] [address] [facility] MEDICARE Care Teams Pairer Inspector Relationship Specialty Start Date End Date Valeriano Cornell MD PCP - General Internal Medicine 11/21/20
--- OUTSIDE RECORDS SUMMARY | 2025-02-04 02:15 | XMS_ITS | Clinical Summary ---
Author Organization [facility] Address [address] [place] [address] Care Team Providers Care Silk Crepe Machine Operator Name Role Phone Unavailable Primary [...] Encounters Date Type Department Care Team Description 12/29/2024 External Device Data [facility] ABSTRACTION Provider, Abstract 12/18/2024 External Device Data [facility] ABSTRACTION Provider, Abstract 12/17/2024 External Device Data [facility] ABSTRACTION Provider, Abstract 12/15/2024 External Device Data [facility] ABSTRACTION Provider, Abstract 12/01/2024 External Device Data [facility] ABSTRACTION Provider, Abstract 11/09/2024 External Device Data [facility] ABSTRACTION Provider, Abstract from Last 3 Months Social History Tobacco Use Types Packs/Day Years Used Date Smoking Tobacco: Never Smokeless Tobacco: Never Tobacco Cessation:Counseling Given: Not Answered Comments Unknown Sex and Gender Information Value Date Recorded Sex Assigned at Not on file 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
--- OUTSIDE RECORDS SUMMARY | 2025-02-04 02:15 | XMS_ITS | Clinical Summary ---
Author Organization [facility] Address [address] [place] [address] Care Team Providers Care Conservation Science Teacher Name Role Phone Tiago Weinberg MD Primary Care Provider Jelly Heart APRN-NEWS CONTENT SPECIALIST Unavailable Unavailable Source Comments [facility],non-owned Affiliates and Associated Physician Practices is amultiple site organization consisting of ambulatory clinics and hospital sitesin [place], [place], [place] and [place]. This disclosure is being madepursuant to the Care Everywhere program and may not contain all information available regarding this patient. Last updated 18.[facility] Allergies No known active allergies Medications * Be aware that medications may not be up to date on this document. Alwaysverify current medications with the patient. 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 Gender Identity Not on file Sexual Orientation Not on file Last Filed Vital Signs Vital Sign Reading Time Taken Comments Blood Pressure 122/70 07/13/2014 1:50 PM CDT Pulse 64 07/13/2014 1:50 PM CDT Temperature 36.7 C (98.1 F) 07/13/2014 1:50 PM CDT Respiratory Rate 16 07/13/2014 1:50 PM CDT [...] VACCINE ( - 2023-2 5 season) 2024 DEPRESSION SCREENING 10/13/2024 INFLUENZA VACCINE (Season Ended) 2025 Respiratory Syncytial Virus (RSV) Vaccine Pt: or [...] complete this topic MENINGOCOCCAL (Group B) VACCINE SHARED DECISION-MAKING Aged Out No longer eligible based on patient's age to complete this topic MENINGOCOCCAL GROUPS A/C/Y/W VACCINE Aged Out No longer eligible b [...] breast and possible left breast ultrasound. A) A negative report should not delay a biopsy if a dominant or clinically suspicious mass is present. B) Adenosis and dense breasts may obscure an underlying neoplasm. C) Study interpreted with computer-aided detection. [facility] BI-RADS Categories: [...] marked the area I believe it represents. us Tiago Weinberg MD MAMMO ORDERABLES Final Result from Last 3 Months or Most Recently Relevant to Health Maintenance Insurance [employer] Care Teams Conservation Science Teacher Relationship Specialty Start Date End Date Tiago Weinberg MD [phone] [phone] PCP - General Internal Medicine 06/01/13 Jelly Heart, NICOLE-NEWS CONTENT SPECIALIST [phone] [id number] Nurse Practitioner 07/06/14
--- OUTSIDE RECORDS SUMMARY | 2025-02-04 02:15 | XMS_ITS | Data Portability ---
[facility] Organization [facility] [address] [place] [address] Care Team Providers Care Chilling Hood Operator Name Role Phone SANTOS CORNELL Primary Care Provider Unavailabl e Assessment Encounter Date Assessment Date Assessment LastModified by Organization Details LastModified Time 01/06/2024 01/06/2024 She will continue to follow-up Ortho for her left knee we will obtain blood work for biochemical management of disease processes and medications we will continue with her current medical strategy for now see me back in 4 months. [email or web address] Not available 01/10/2024 17:57:30 05/03/2024 05/03/2024 last blood work was reviewed continue current therapy sugar was up a little bit healthy lifestyle care instructions she will follow up in 4 months with full blood work [email or web address] Not available 05/15/2024 21:41:42 11/15/2024 11/15/2024 CBC CMP lipid A1c colonoscop diabetic foot exam with Podiatry continue current therapy follow up in 6 months [email or web address] Not available 12/12/2024 14:30:47 Plan of Treatment Reminders Order Date Submit Date Provider Last Modified By Organization Details Last Modified Time Details Appointments ANY 15 2024 09:15A M Santos Cornell MD Not available Not available Not available Lab HbA1c (hemoglob in A1c), blood 2024 025 YARELIS [facility], [address], [place], [address], 11/18/2024 11:36:55 CBC w/ auto diff 2024 025 YARELIS [facility], [address], [place], [address], 12/06/2024 10:42:22 CMP, serum or plasma 2024 025 YARELIS [facility], [address], [place], [address], 11/16/2024 13:24:33 lipid panel, serum 2024 025 [facility], [address], [place], [address], 11/18/2024 11:36:55 CBC w/ auto diff 2023 024 YARELISLAQUITA [facility], [address], [place], [address], 01/07/2024 08:24:08 lipid panel, serum 2023 024 [facility], [address], [place], [address], 01/07/2024 08:24:07 CMP, serum or plasma 2023 024 [facility], [address], [place], [address], 01/07/2024 08:24:07 Referral podiatris t referral 2024 025 YARELIS Iniguez Jr DPM, [address], [address], [place], [address], 01/13/2025 10:37:58 Procedures colonosco py screening (PROC) 2024 025 [facility], [id number], [place], [address], 12/17/2024 10:09:40 Surgeries None recorded. Imaging None recorded. Medication Orders None recorded. Patient TargetsNo targets recorded. Patient Instructions Encounter Date Encounter Id Patient Instructions Last Modified By Organization Details Last Modified Time 05/03/2024 [id number] A healthy lifestyle: care instructions [email or web address] Not available 05/15/2024 21:41:57 11/15/2024 [id number] A healthy lifestyle: care instructions [email or web address] Not available 11/15/2024 12:06:22 Reason for Referral Licensed Veterinary Technician Referral for Type 2 diabetes mellitus Referring Physician: Santos Cornell, Internal Medicine, Encounter Date: 11/15/2024 Results Created Date Observation Date Name Description Value Unit Range Abnormal Flag Note LastModifiedBy Organization Detail LastModifiedTime 01/06/20 24 01/07/2024 LIPID PANEL cholesterol, total 164 mg/dL 100-19 9 Not Available [facility] ([facility]) [address] [place], [address], 01/07/2024 08:24:07 01/06/20 24 01/07/2024 LIPID PANEL triglyceride s 181 mg/dL 0-149 above high normal Not Available [facility] ([facility]) [address] [place], [address], 01/07/2024 08:24:07 01/06/20 24 01/07/2024 LIPID PANEL HDL cholesterol 62 mg/dL >39 Not Available [facility] ([facility]) [address] [place], [address], 01/07/2024 08:24:07 01/06/20 24 01/07/2024 LIPID PANEL VLDL cholesterol linda 30 mg/dL 5-40 Not Available [facility] ([facility]) [address] [place], [address], 01/07/2024 08:24:07 01/06/20 24 01/07/2024 LIPID PANEL LDL chol calc ([facility]) 72 mg/dL 0-99 Not Available [facility] ([facility]) [address] [place], [address], 01/07/2024 08:24:07 01/06/20 24 01/07/2024 COMP. METAB OLIC PANEL (14) glucose 157 mg/dL 70-99 above high normal Not Available [facility] ([facility]) [address] [place], [address], 01/07/2024 08:24:07 01/06/20 24 01/07/2024 COMP. METAB OLIC PANEL (14) BUN 10 mg/dL 8-27 Not Available [facility] ([facility]) [address] [place], [address], 01/07/2024 08:24:07 01/06/20 24 01/07/2024 COMP. METAB OLIC PANEL (14) creatinine 0.79 mg/dL 0.57-1 .00 Not Available [facility] ([facility]) [address] [place], [address], 01/07/2024 08:24:07 01/06/20 24 01/07/2024 COMP. METAB OLIC PANEL (14) eGFR 80 mL/mi n/1.7 3 >59 Not Available [facility] ([facility]) [address] [place], [address], 01/07/2024 08:24:07 01/06/20 24 01/07/2024 COMP. METAB OLIC PANEL (14) BUN/creatini ne ratio 13 12-28 Not Available [facility] ([facility]) [address] [place], [address], 01/07/2024 08:24:07 01/06/20 24 01/07/2024 COMP. METAB OLIC PANEL (14) sodium 143 mmol/ L 134-14 4 Not Available [facility] ([facility]) [address] [place], [address], 01/07/2024 08:24:07 01/06/20 24 01/07/2024 COMP. METAB OLIC PANEL (14) potassium 4.5 mmol/ L 3.5-5. 2 Not Available [facility] ([facility]) [address], [place], [address], 01/07/2024 08:24:07 01/06/20 24 01/07/2024 COMP. METAB OLIC PANEL (14) chloride 104 mmol/ L 96-106 Not Available [facility] ([facility]) [address] [place], [address], 01/07/2024 08:24:07 01/06/20 24 01/07/2024 COMP. METAB OLIC PANEL (14) carbon dioxide, total 25 mmol/ L 20-29 Not Available [facility] ([facility]) [address] [place], [address], 01/07/2024 08:24:07 01/06/20 24 01/07/2024 COMP. METAB OLIC PANEL (14) calcium 10.1 mg/dL 8.7-10 .3 Not Available [facility] ([facility]) [address] [place], [address], 01/07/2024 08:24:07 01/06/20 24 01/07/2024 COMP. METAB OLIC PANEL (14) protein, total 6.9 g/dL 6.0-8. 5 Not Available [facility] ([facility]) [address] [place], [address], 01/07/2024 08:24:07 01/06/20 24 01/07/2024 COMP. METAB OLIC PANEL (14) albumin 4.6 g/dL 3.9-4. 9 Not Available [facility] ([facility]) [address] [place], [address], 01/07/2024 08:24:07 01/06/20 24 01/07/2024 COMP. METAB OLIC PANEL (14) globulin, total 2.3 g/dL 1.5-4. 5 Not Available [facility] ([facility]) [address] [place], [address], 01/07/2024 08:24:07 01/06/20 24 01/07/2024 COMP. METAB OLIC PANEL (14) A/G ratio 2.0 1.2-2. 2 Not Available [facility] ([facility]) [address] [facility], [place], [address], 01/07/2024 08:24:07 01/06/20 24 01/07/2024 COMP. METAB OLIC PANEL (14) bilirubin, total 0.6 mg/dL 0.0-1. 2 Not Available [facility] ([facility]) [address] [facility] [place], [address], 01/07/2024 08:24:07 01/06/20 24 01/07/2024 COMP. METAB OLIC PANEL (14) alkaline phosphatase 74 IU/L 44-121 Not Available [facility] ([facility]) [address] [facility], [place], [address], 01/07/2024 08:24:07 01/06/20 24 01/07/2024 COMP. METAB OLIC PANEL (14) AST (SGOT) 28 IU/L 0-40 Not Available [facility] ([facility]) [address] [facility], [place], [address], 01/07/2024 08:24:07 01/06/20 24 01/07/2024 COMP. METAB OLIC PANEL (14) ALT (SGPT) 54 IU/L 0-32 above high normal Not Available [facility] ([facility]) [address] [facility], [place], [address], 01/07/2024 08:24:07 01/06/20 24 01/07/2024 CBC WITH DIFFE RENTI AL/PL ATELE T WBC 11.1 x10e3 /uL 3.4-10 .8 above high normal Not Available [facility] ([facility]) [address] [place], [address], 01/07/2024 08:24:08 01/06/20 24 01/07/2024 CBC WITH DIFFE RENTI AL/PL ATELE T RBC 4.58 x10e6 /uL 3.77-5 .28 Not Available [facility] ([facility]) [address] [place], [address], 01/07/2024 08:24:08 01/06/20 24 01/07/2024 CBC WITH DIFFE RENTI AL/PL ATELE T hemoglobin 14.1 g/dL 11.1-1 5.9 Not Available [facility] ([facility]) [address] [place], [address], 01/07/2024 08:24:08 01/06/20 24 01/07/2024 CBC WITH DIFFE RENTI AL/PL ATELE T hematocrit 42.4 % 34.0-4 6.6 Not Available [facility] ([facility]) [address] [place], [address], 01/07/2024 08:24:08 01/06/20 24 01/07/2024 CBC WITH DIFFE RENTI AL/PL ATELE T MCV 93 fL 79-97 Not Available [facility] ([facility]) [address] [place], [address], 01/07/2024 08:24:08 01/06/20 24 01/07/2024 CBC WITH DIFFE RENTI AL/PL ATELE T MCH 30.8 pg 26.6-3 3.0 Not Available [facility] ([facility]) [address] [place], [address], 01/07/2024 08:24:08 01/06/20 24 01/07/2024 CBC WITH DIFFE RENTI AL/PL ATELE T MCHC 33.3 g/dL 31.5-3 5.7 Not Available [facility] ([facility]) [address] [place], [address], 01/07/2024 08:24:08 01/06/20 24 01/07/2024 CBC WITH DIFFE RENTI AL/PL ATELE T RDW 12.8 % 11.7-1 5.4 Not Available [facility] ([facility]) [address] [facility], [place], [address], 01/07/2024 08:24:08 01/06/20 24 01/07/2024 CBC WITH DIFFE RENTI AL/PL ATELE T platelets 217 x10e3 /uL 150-45 0 Not Available [facility] ([facility]) [address] [facility], [place], [address], 01/07/2024 08:24:08 01/06/20 24 01/07/2024 CBC WITH DIFFE RENTI AL/PL ATELE T neutrophils 55 % notest ab. Not Available [facility] ([facility]) [address] [facility], [place], [address], 01/07/2024 08:24:08 01/06/20 24 01/07/2024 CBC WITH DIFFE RENTI AL/PL ATELE T lymphs 38 % notest ab. Not Available [facility] ([facility]) [address] [facility], [place], [address], 01/07/2024 08:24:08 01/06/20 24 01/07/2024 CBC WITH DIFFE RENTI AL/PL ATELE T monocytes 5 % notest ab. Not Available [facility] ([facility]) [address] [facility], [place], [address], 01/07/2024 08:24:08 01/06/20 24 01/07/2024 CBC WITH DIFFE RENTI AL/PL ATELE T eos 1 % notest ab. Not Available [facility] ([facility]) [address] [facility], [place], [address], 01/07/2024 08:24:08 01/06/20 24 01/07/2024 CBC WITH DIFFE RENTI AL/PL ATELE T basos 1 % notest ab. Not Available [facility] ([facility]) [address] [place], [address], 01/07/2024 08:24:08 01/06/20 24 01/07/2024 CBC WITH DIFFE RENTI AL/PL ATELE T neutrophils (absolute) 6.2 x10e3 /uL 1.4-7. 0 Not Available [facility] ([facility]) [address] [place], [address], 01/07/2024 08:24:08 01/06/20 24 01/07/2024 CBC WITH DIFFE RENTI AL/PL ATELE T lymphs (absolute) 4.2 x10e3 /uL 0.7-3. 1 above high normal Not Available [facility] ([facility]) [address] [place], [address], 01/07/2024 08:24:08 01/06/20 24 01/07/2024 CBC WITH DIFFE RENTI AL/PL ATELE T monocytes(ab solute) 0.6 x10e3 /uL 0.1-0. 9 Not Available [facility] ([facility]) [address] [place], [address], 01/07/2024 08:24:08 01/06/20 24 01/07/2024 CBC WITH DIFFE RENTI AL/PL ATELE T eos (absolute) 0.1 x10e3 /uL 0.0-0. 4 Not Available [facility] ([facility]) [address] [place], [address], 01/07/2024 08:24:08 01/06/20 24 01/07/2024 CBC WITH DIFFE RENTI AL/PL ATELE T baso (absolute) 0.1 x10e3 /uL 0.0-0. 2 Not Available [facility] ([facility]) [address] [place], [address], 01/07/2024 08:24:08 01/06/20 24 01/07/2024 CBC WITH DIFFE RENTI AL/PL ATELE T immature granulocytes 0 % notest ab. Not Available [facility] ([facility]) [address] [facility], [place], [address], 01/07/2024 08:24:08 01/06/20 24 01/07/2024 CBC WITH DIFFE RENTI AL/PL ATELE T immature grans (abs) 0.0 x10e3 /uL 0.0-0. 1 Not Available [facility] ([facility]) [address] [facility], [place], [address], 01/07/2024 08:24:08 09/25/20 24 09/25/2024 CT, brain , w/o contr ast No observ ation record ed. [address], [place], [address], 09/27/2024 10:20:50 09/25/20 24 09/25/2024 CT, face, w/o contr ast No observ ation record ed. [address], [place], [address], 09/27/2024 10:23:43 Result Notes None recorded. Problems Name Problem SNOMED Code Status Onset Date Resolution Date Notes Provider Name and Address Organization Details Recorded Time Essential hypertension 59047312 Active 2023 Kirsten Jacobson [place] null, [place] [facility] 4 12:13:46 Hyperlipidemia 05577719 Active 2023 Kirsten Jacobson [place], [place] [facility] 4 12:13:47 Type 2 diabetes mellitus 80743572 Active 2023 Kirsten Jacobson [place], [place] [facility] 4 12:13:48 Anxiety 96695883 Active 2023 Santos Cornell MD Attn: Marcie song[address] [place], [address], [place] [facility] 17:57:11 Problem Notes None recorded. Procedures Surgical History Date Name Laterality Status Provider Name and Address Organization Details Recorded Time Cholecystectomy completed Bakariashlee HernandezBRITNEY [facility] 01/06/2024 11:25:35 Breast Surgery completed Bakariashlee BRITNEY Hernandez [facility] 01/06/2024 11:25:44 Imaging Results Imaging Date Name Status LastModified by Organiz ation Details LastModified Time 09/25/2024 CT, brain, w/o contrast completed [address] [facility], [place], [address], 09/27/2024 10:20:50 09/25/2024 CT, face, w/o contrast completed [address], [place], [address], 09/27/2024 10:23:43 Procedure Notes None recorded. Medical Equipment None Reported. Allergies No known drug allergies Medications Name Sig Start Date Stop Date Status Note LastModified by Organization Details LastModified Time atorvastati n 10 mg tablet TAKE 1 TABLET BY MOUTH EVERY DAY 2024 active Not Available Not Available Not Avai lable azithromyci n 250 mg tablet 01/04 completed Not Available Not Available Not Available sumatriptan 100 mg tablet TAKE ONE TABLET BY MOUTH EVERY DAY active Not Available Not Available No t Available amlodipine 2.5 mg tablet TAKE 1 TABLET BY MOUTH EVERY DAY 2024 active Not Available Not Available Not Avai [...] TAKE 1 CAPSULE BY MOUTH EVERY DAY 2024 active Not Available Not Available Not Avai lable lorazepam 1 mg tablet TAKE 1 TABLET BY MOUTH THREE TIMES DAILY NEEDED MUST LAST 30 DAYS. 2024 active Not Available Not Available Not Avai lable fluticasone propionate 50 mcg/actuati on nasal spray,suspe nsion INSTILL 2 SPRAYS INTRANSAL LY INTO BOTH NOSTRILS NEEDED FOR CONGESTIO N 11/15 completed Not Available Not Available Not Available metformin ER 500 mg tablet,exte nded release 24 hr TAKE 2 TABLETS BY MOUTH AT BEDTIME 2024 active Not Available Not Available Not Avai [...] Address Organization Details Last Updated DateTime 4 11942.5 4 g 37.2 kg/m2 162.56 cm 98 % 98 % 80 /min 118 mm[Hg] 72 mm[Hg] Nila Hernandez MA [facility] 4 11:32:10 Date Recorded Body height Body mass index (BMI) Body weight Provider Name and Address Organization Details Last Updated DateTime 05/03/2024 162.56 cm 37.8 kg/m2 74464.75 g Dee Dee Rodriguez MA [facility] 05/03/2024 10:27:19 Date Recorded Body height Body mass index (BMI) Body weight Heart rate Oxygen saturation Oxygen saturation in Arterial blood by Pulse oximetry Systolic blood pressure Diastolic blood pressure Provider Name and Address Organization Details Last Updated DateTime 5 162.56 cm 38.1 kg/m2 601973. 15 g 62 /min 97 % 97 % 128 mm[Hg] 84 mm[Hg] Morelia Diaz MA [facility] 5 11:27:39 Social History Question Answer Notes LastModified by Organizat ion Details LastModified Time Tobacco Smoking Status Never Smoker Nila Hernandez MA null, [facility] 01/06/2024 11:24:38 Do You Have An Advance [...] Anxious, Or Unable To Sleep At Night)? [id number] Information not available 01/06/2024 Do You Use [...] Response Coronary Artery Disease N Other N Atrial Fibrillation N High Blood Pressure Y Depression N COPD N Blood Clots N Anxiety Disorder Y Muscle, Joint, or Bone Problems N Acid Reflux (GERD) N Cancer N Stroke N High Cholesterol Y Liver Disease N Headaches Y Kidney or Bladder Problems N Thyroid Problems N GI Problems N Have you had a mammogram in the last yea r? N Skin Problems N Anemia N Heart Attack ([place]) N Diabetes Y Seizures/Epilepsy N Have you had a colonoscopy in the last 1 0 years? N Asthma N Allergies N Have you had a PSA blood test in the las t year? N Hepatitis N Heart Failure N Osteoporosis N Gynecological History [...] Influenza, high-dose, quadrivalent, PF 0 completed Isabel [place], [place] [facility] 11/12/2024 11:58:44 Influenza, high-dose, quadrivalent, PF 1 completed Isabel [place] [facility] 11/12/2024 11:58:44 COVID-19, mRNA, LNP-S, PF, 30 mcg/0.3 mL dose 1 completed Isabel [place] [facility] 11/12/2024 11:58:44 COVID-19, mRNA, LNP-S, PF, 30 mcg/0.3 mL dose 1 completed Isabel [place] [facility] 11/12/2024 11:58:44 COVID-19, mRNA, LNP-S, PF, 30 mcg/0.3 mL dose 1 completed Isabel [place] [facility] 11/12/2024 11:58:44 COVID-19, mRNA, LNP-S, PF, 30 mcg/0.3 mL dose, ela-sucrose 2 completed Isabel [place] [facility] 11/12/2024 11:58:44 COVID-19, mRNA, LNP-S, bivalent, PF, 30 mcg/0.3 mL dose 2 completed Isabel [place] [facility] 11/12/2024 11:58:44 pneumococcal polysaccharide PPV23 0 completed Isabel [place] [facility] 11/12/2024 11:58:44 Pneumococcal conjugate PCV 13 2 completed Isabel [place] [facility] 11/12/2024 11:58:44 Influenza, high-dose, trivalent, PF 0 completed Isabel [place] [facility] 11/12/2024 11:58:44 Influenza, split virus, trivalent, PF 8 completed Isabel [place] [facility] 11/12/2024 11:58:44 Influenza, split virus, trivalent, PF 6 completed Isabel [place] [facility] 11/12/2024 11:58:44 Influenza, split virus, quadrivalent, PF 11/11/201 8 completed Isabel [place] [facility] 11/12/2024 11:58:44 Past Encounters Encounter ID Performer Location Encounter Start Date Encounter Closed Date Diagnosis/Indication Diagnosis SNOMED-CT Code Diagnosis ICD10 Code Diagnosis Note [id number] Santos Cornell MD [facility] (Adult Med[facility] [address] [place] [phone] 01/06/2024 11:10:02 01/06/2024 12:14:23 Essential hypertension 19206350 I10 Hyperlipidemia 27661529 E78.5 Type 2 lele betes mellitus 61672299 E11.9 Anxiety 24540067 F41.9 [id number] Santos Cornell MD [facility] [place] [address] [place] [id number] 05/03/2024 10:23:00 05/03/2024 11:53:55 Obesity 890576756 E66.8 Hyperlipidemia 64473070 E78.5 Essential hypertension 18116480 I10 Anxiety 68336334 F41.9 Type 2 lele betes mellitus 51542006 E11.9 [id number] Santos Cornell MD [facility] [place] [address] [place] [id number] 11/15/2024 10:55:09 11/15/2024 12:23:16 Body mass index 30+ - obesity 403069809 Z68.38 Obesity 546265460 E66.9 Essential hypertension 15024595 I10 Hyperlipidemia 60193968 E78.5 Type 2 lele betes mellitus 44631482 E11.9 Screening for malignant neoplasm of colon 471758095 Z12.11 Anxiety 49574242 F41.9 Health Concerns Section Related Observation LastModified by Organization Detai ls LastModified Time None Recorded Concern Status LastModified by Organization Details LastModified Time None Recorded Advance Directives Directive Y: Payers Encounter Date Sequence Insurance Name Policy Number Policy Solomon Covered Member ID Solomon Member ID Guarantor Name 01/06/2024 1 [employer] (MEDICARE REPLACEMENT PPO) [id number] 1 Kristine García [id number] Kristine García 05/03/2024 1 [employer] (MEDICARE REPLACEMENT PPO) [id number] 1 Kristine García [id number] Kristine García 11/15/2024 1 [employer] (MEDICARE REPLACEMENT PPO) [id number] 1 Kristine García [id number] Kristine García Notes Date Note Type Note Provider Name and Address Organization Details Recorded Time 01/06/2024 text/html Hypertension no headache no dizziness rhinitis stable on fluticasone anxiety doing well on lorazepam diabetes no polyphagia polydipsia still struggling with her knee issues Santos Cornell MD Attn: [address] [place], [address], [place] [facility] 01/10/2024 17:57:53 05/03/2024 text/html Hypertension no headache no dizziness rhinitis stable on fluticasone anxiety doing well on lorazepam diabetes no polyphagia polydipsia Santos Cornell MD Attn: [address] [place], [address], [place] [facility] 05/15/2024 21:41:59 11/15/2024 text/html Hypertension no headache no dizziness rhinitis stable on fluticasone anxiety doing well on lorazepam diabetes no polyphagia polydipsia still struggling with her knee issues she did have an emergency department visit for a fall in September of 2024 that is all healed up Santos Cornell MD Attn: [address] [place], [address], [place] [facility] 12/12/2024 14:33:04 OBGyn Episode No OBEpisode recorded.
--- OUTSIDE RECORDS SUMMARY | 2025-02-04 02:15 | XMS_ITS | Referral Summary ---
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 Gender Identity Not on file Sexual Orientation Not on file Last Filed Vital Signs Vital Sign Reading Time Taken Comments Blood Pressure 160/79 09/25/2024 10:26 PM BEAD INSPECTOR Pulse 65 09/25/2024 10:26 PM BEAD INSPECTOR Temperature 36.6 C (97.9 F) 09/25/2024 5:42 PM BEAD INSPECTOR Respiratory Rate 16 09/25/2024 10:26 PM BEAD INSPECTOR Oxygen Saturation 97% 09/25/2024 10:26 PM BEAD INSPECTOR Inhaled Oxygen Concentration - - Weight 99.8 kg (220 lb) 10/14/2024 1:02 PM BEAD INSPECTOR Height 162.6 cm (5' 4 ) 10/14/2024 1:02 PM BEAD INSPECTOR Body Mass Index 37.76 10/14/2024 1:02 PM BEAD INSPECTOR Plan of Treatment Not on file Procedures Procedure Name Priority Date/Time Associated Diagnosis Comments SCREENING MAMMOGRAM BILATERAL W AYAZ Routine 04/29/2016 11:26 AM CDT from Last 3 Months or Most Recently Relevant to Health Maintenance Results * Screening Mammogram Bilateral W Ayaz (04/29/2016 [...] be contacted. Rey Cabrera M.D. ab/:05/07/2016 10:33:03 Librarian Head: Sarah Kelsey)Edward), [facility] letter sent: Additional Imaging Reading location: [...] mammogram, 07/13/2014 mammogram, and 06/04/2013 mammogram - [facility]. BREAST TISSUE: There are scattered areas [...] 07/20/2014 mammogram,07/13/2014 mammogram, and 06/04/2013 mammogram - [facility]. BREAST TISSUE: There are scattered areas [...] be contacted. Rey Cabrera M.D. ab/:05/07/2016 10:33:03 Librarian Head: Sarah Kelsey)(Declan), [facility] letter sent: Additional Imaging Reading location: BI-RADS: 0 Additional Imaging Evaluation Needed [EOD] Jazmine BROWNE IMG MAMMO PROCEDURES Final Result from Last 3 Months or Most Recently Relevant to Health Maintenance Insurance UHC MEDICARE ADVANTAGE AETNA MEDICARE [facility] Address: [facility] [id number] [id number] AETNA MEDICARE [facility] MEDIC[facility] Address: [facility] [id number] [place] [address] Care Teams Corporate Coordinator Relationship Specialty Start Date End Date Valeriano Cornell MD PCP - General Internal Medicine 11/21/20
[2025-02-04 07:11] VITALS: BP 149/76; PULSE 78; RESP 16; TEMP 36.4; O2SAT 98; BMI 36.8
--- NOTE | 2025-02-04 07:16 | P.PNAN_ITS ---
Anes - Initial Pre Proc Eval Procedure: Operation Date: 02/04/25 08:30 Proposed Procedures p Screening Colonoscopy - Tunde Troncoso MD Date/Time: 02/04/25 07:16 Surgeon: Tunde Troncoso MD Pre Op Diagnosis: Screening Patient Data Age: 69 Gender: F Height: 1.63 m Weight: 100 kg Allergies Allergy/AdvReac Type Severity Reaction Status Date / Time No Known Allergies Allergy Unknown Verified 02/04/25 07:16 Home Medications ?Medication ?Instructions ?Recorded ?Confirmed ?Type propranolol 120 mg capsule,24 120 mg PO DAILY 11/16/20 02/04/25 History hr,extended release sumatriptan succinate 100 mg tablet 100 mg PO PRN PRN Migraine Headache 11/16/20 01/24/25 History lorazepam 1 mg tablet 1 mg PO PRN PRN Anxiety 08/29/22 01/24/25 History metformin 500 mg tablet,extended 1,000 mg PO HS 08/29/22 02/04/25 History release 24 hr amlodipine 2.5 mg tablet 2.5 mg PO DAILY 11/18/23 02/04/25 History atorvastatin 10 mg tablet 10 mg PO DAILY 11/18/23 02/04/25 History fluticasone propionate 50 1 spray intranasal DAILY PRN 01/24/25 01/24/25 History mcg/actuation nasal allergy symptoms spray,suspension (24 Hour Allergy Relief) Patient hx anesthesia problems: none Family hx anesthesia problems: none Results Review: All pre-operative results and documents have been reviewed as part of the pre- operative evaluation. [facility] Past Medical History Medical History Kidney stones Hypercholesterolemia Diabetes Hypertension Surgical History Surgical History History of cholecystectomy Social History Social History Smoking status: Never smoker Alcohol intake: never Substance use: never Substance use type: does not use Current Housing: Decline to Answer Concerned About Future Housing: Decline to Answer Difficulty Paying Gas/Electric Bills: Decline to Answer Difficulty Paying for Meds: Decline to Answer Currently Unemployed: Decline to Answer Education: Decline to Answer Difficulty w/ Childcare or Family Care: Decline to Answer Living arrangements: with family Occupation/Education: retired Gender identity (if verbalized by the patient): Female Spiritual care concerns: No Anes - Eval Final PreProcedure Day of Procedure 02/04/25 07:16 Patient weight: obese Heart: regular rate and rhythm Lungs: clear to auscultation Airway: Mallampati scale class II Neurological: alert and oriented Last oral intake: >/= 8 hours ASA classification: III Emergent: no Anesthetic plan: proceed Anesthesia type and monitoring: general GIVS and standard monitoring Results Review: All pre-operative results and documents have been reviewed as part of the pre- operative evaluation. Informed Consent: The patient's anesthetic plan and its attendant risks and benefits were discussed with the patient/family/POA. Questions were solicited and answers provided to the satisfaction of the patient/family/POA.
[2025-02-04] MEDS: LACTATED RINGERS 1,000 ML 150 ML IV CONT (07:27)
[2025-02-04 07:36] LABS: Glucose Point of Care 140 mg/dl (65-105)
--- NOTE | 2025-02-04 08:14 | PM.IMHP ---
H&P: HPI History of Present Illness Date/Time: 02/04/25 08:14 Chief Complaint: Screening colonoscopy Narrative: This is the patient's 2nd colonoscopy. There are no GI symptoms and there is no family history of colorectal cancer. Review of Systems Review of Systems: All systems reviewed & are unremarkable except as noted in HPI and below PMFSH Past Medical History Medical History Kidney stones Hypercholesterolemia Diabetes Hypertension Surgical History Surgical History History of cholecystectomy Social History Social History Smoking status: Never smoker Alcohol intake: never Substance use: never Substance use type: does not use Current Housing: Decline to Answer Concerned About Future Housing: Decline to Answer Difficulty Paying Gas/Electric Bills: Decline to Answer Difficulty Paying for Meds: Decline to Answer Currently Unemployed: Decline to Answer Education: Decline to Answer Difficulty w/ Childcare or Family Care: Decline to Answer Living arrangements: with family Occupation/Education: retired Gender identity (if verbalized by the patient): Female Spiritual care concerns: No Meds Home Medications and Allergies Home Medications ?Medication ?Instructions ?Recorded ?Confirmed ?Type propranolol 120 mg capsule,24 120 mg PO DAILY 11/16/20 02/04/25 History hr,extended release sumatriptan succinate 100 mg tablet 100 mg PO PRN PRN Migraine Headache 11/16/20 01/24/25 History lorazepam 1 mg tablet 1 mg PO PRN PRN Anxiety 08/29/22 01/24/25 History metformin 500 mg tablet,extended 1,000 mg PO HS 08/29/22 02/04/25 History release 24 hr amlodipine 2.5 mg tablet 2.5 mg PO DAILY 11/18/23 02/04/25 History atorvastatin 10 mg tablet 10 mg PO DAILY 11/18/23 02/04/25 History fluticasone propionate 50 1 spray intranasal DAILY PRN 01/24/25 01/24/25 History mcg/actuation nasal allergy symptoms spray,suspension (24 Hour Allergy Relief) Allergies Allergy/AdvReac Type Severity Reaction Status Date / Time No Known Allergies Allergy Unknown Verified 02/04/25 07:16 Vital Signs Vital Signs - 24 hr 02/04/25 07:11 Temperature 97.6 F Pulse Rate 78 Respiratory Rate 16 Blood Pressure 149/76 H Pulse Oximetry 98 Oxygen Delivery Room Air Exam Const: General: cooperative and healthy appearing Resp: Effort & Inspection: normal respiratory effort and able to speak in complete sentences Auscultation: clear to auscultation bilaterally Cardio: Rate: regular rate Rhythm: regular rhythm GI: Inspection: normal to inspection GI Palp: No No hepatosplenomegaly present Auscultation: normal bowel sounds Rectal Exam: deferred Skin: General skin exam: normal color Psych: Appearance: grossly normal Mental Status: mental status grossly normal Assessment and Plan Assessment and plan (1) Colon cancer screening: Code(s): Z12.11 - Encounter for screening for malignant neoplasm of colon Status: Acute Assessment and Plan: The patient is deemed a good candidate for the procedure. Consent signed. Will proceed.
[2025-02-04 08:55] VITALS: BP 106/59; PULSE 67; RESP 23; O2SAT 94
[2025-02-04 09:05] VITALS: BP 118/65; PULSE 73; RESP 26; O2SAT 94
[2025-02-04 09:15] VITALS: BP 125/62; PULSE 66; RESP 25; O2SAT 94
== END 2025-02-04 09:39 | disposition home or self-care (01) ==
PROVIDERS: PCP Internal Medicine; Referring Provider Internal Medicine; Visit Provider Internal Medicine Gastroenterology
PROC: 0DJD8ZZ Inspection of Lower Intestinal Tract, Via Natural or Artificial Opening Endoscopic (ICD-10-PCS; CPT 45378; principal; 2025-02-04 08:30)
DX: Z12.11 Encounter for screening for malignant neoplasm of colon (principal); D12.5 Benign neoplasm of sigmoid colon; D12.3 Benign neoplasm of transverse colon; D12.4 Benign neoplasm of descending colon; K64.8 Other hemorrhoids; K57.30 Diverticulosis of large intestine without perforation or abscess without bleeding; I10 Essential (primary) hypertension; E11.9 Type 2 diabetes mellitus without complications; E78.00 Pure hypercholesterolemia, unspecified; E66.9 Obesity, unspecified; Z68.36 Body mass index [BMI] 36.0-36.9, adult; Z79.84 Long term (current) use of oral hypoglycemic drugs; Z98.890 Other specified postprocedural states; Z90.49 Acquired absence of other specified parts of digestive tract; Z87.442 Personal history of urinary calculi
CPT/HCPCS: 45385; 82948; 88305; J2003; J2704; J7120

== ENCOUNTER 2025-05-16 10:15 | Outpatient (CLI) | payer MEDICARE, SELFPAY ==
--- OUTSIDE RECORDS SUMMARY | 2025-05-16 10:37 | XMS_ITS | Referral Summary ---
Author Organization [facility] [address] Address [address] [place] [address] Care Team Providers Care Marina Dry Dock Manager Name Role Phone Valeriano Cornell MD Primary Care Provider [phone] Allergies No known active allergies Medications bacitracin [...] on file Legal Sex Female 2:02 AM KENO WRITER Gender Identity Not on file Sexual Orientation Not on file Last Filed Vital Signs Vital Sign Reading Time Taken Comments Blood Pressure 160/79 09/25/2024 10:26 PM KENO WRITER Pulse 65 09/25/2024 10:26 PM KENO WRITER Temperature 36.6 C (97.9 F) 09/25/2024 5:42 PM KENO WRITER Respiratory Rate 16 09/25/2024 10:26 PM KENO WRITER Oxygen Saturation 97% 09/25/2024 10:26 PM KENO WRITER Inhaled Oxygen Concentration - - Weight 99.8 kg (220 lb) 10/14/2024 1:02 PM KENO WRITER Height 162.6 cm (5' 4) 10/14/2024 1:02 PM KENO WRITER Body Mass Index 37.76 10/14/2024 1:02 PM KENO WRITER Plan of Treatment Not on file Procedures [...] be contacted. Rey Cabrera M.D. ab/:05/07/2016 10:33:03 Extract Operator: Sarah Leon (R)), [facility] letter sent: Additional Imaging Reading location: BI-RADS: [...] mammogram, 07/13/2014 mammogram, and 06/04/2013 mammogram - [facility]. BREAST TISSUE: There are scattered [...] in either breast. Procedure Note Provider, MD Yosfe - 02/27/2021 - MG BILATERAL DIGITAL SCREENING [...] 07/20/2014 mammogram,07/13/2014 mammogram, and 06/04/2013 mammogram - [facility]. BREAST TISSUE: There are scattered [...] be contacted. Rey Cabrera M.D. ab/:05/07/2016 10:33:03 Extract Operator: Sarah Kelsey)(Declan), [facility] letter sent: Additional Imaging Reading location: BI-RADS: 0 Additional Imaging Evaluation Needed [EOD] Jazmine BROWNE IMG MAMMO PROCEDURES Final Result from Last 3 Months or Most Recently Relevant to Health Maintenance Insurance UHC MEDICARE ADVANTAGE AETNA MEDICARE AETNA MEDICARE Care Teams Marina Dry Dock Manager Relationship Specialty Start Date End Date Valeriano Cornell MD PCP - General Internal Medicine 11/21/20
--- OUTSIDE RECORDS SUMMARY | 2025-05-16 10:37 | XMS_ITS | Clinical Summary ---
Author Organization [facility] Address [address] [facility] [place] [address] Care Team Providers Care Semiconductor Processor Name Role Phone Tiago Weinberg MD Primary Care Provider Jelly Heart APRN-E COMMERCE WEB DEVELOPER Unavailable Unavailable Source Comments [facility],non-owned Affiliates and Associated Physician Practices is amultiple site organization consisting of ambulatory clinics and hospital sitesin [place], [place], [place] and [place]. This disclosure is being madepursuant to the Care Everywhere program and may not contain all informatio navailable regarding this patient. Last updated 18.[facility] Allergies No known active allergies Medications * [...] on file Legal Sex Female 4:14 PM MANUSCRIPTS CURATOR Gender Identity Not on file Sexual Orientation [...] 1:50 PM CDT Height 162.6 cm (5' 4) 07/13/2014 1:50 PM CDT Body Mass Index [...] 2023-2 5 season) 2024 DEPRESSION SCREENING 10/13/2024 MEDICARE AWV CALENDAR YEAR 2024 INFLUENZA VACCINE (#1) 2025 Respiratory Syncytial Virus (RSV) Vaccine Pt: [...] believe it represents. Tiago Weinberg MD MAMMO ORDERABLES Final Result from Last 3 Months or Most Recently Relevant to Health Maintenance Insurance [employer] AETNA MEDICARE ADV SELF PAY NO INSURANCE Member Subscriber Plan / Payer (Ef fective for All Dates) Name:Kristine García Member ID:Not on file Relation to Subscriber:Not on file Name:KRISTINE GARCÍA Subscriber ID:Not on file (Home) Address: [address] [place] [address] Payer ID:Not on file Group ID:Not on file Type:Self Pay Address: [place], [place] Care Teams Semiconductor Processor Relationship Specialty Start Date End Date Tiago Weinberg MD [address] [address] PCP - General Internal Medicine 06/01/13 Jelly Heart APRN-E COMMERCE WEB DEVELOPER [address] [address] Nurse Practitioner 07/06/14
--- OUTSIDE RECORDS SUMMARY | 2025-05-16 10:37 | XMS_ITS | Clinical Summary ---
Author Organization [facility] [address] Address [address] [place] [address] Care Team Providers Care Case Technician Name Role Phone Valeriano Cornell MD Primary Care Provider [phone] Allergies No known active allergies Medications bacitracin [...] on file Legal Sex Female 2:02 AM ANIMAL SKINNER Gender Identity Not on file Sexual Orientation Not on file Obstetrics History Last Filed Vital Signs Vital Sign Reading Time Taken Comments Blood Pressure 160/79 09/25/2024 10:26 PM ANIMAL SKINNER Pulse 65 09/25/2024 10:26 PM ANIMAL SKINNER Temperature 36.6 C (97.9 F) 09/25/2024 5:42 PM ANIMAL SKINNER Respiratory Rate 16 09/25/2024 10:26 PM ANIMAL SKINNER Oxygen Saturation 97% 09/25/2024 10:26 PM ANIMAL SKINNER Inhaled Oxygen Concentration - - Weight 99.8 kg (220 lb) 10/14/2024 1:02 PM ANIMAL SKINNER Height 162.6 cm (5' 4) 10/14/2024 1:02 PM ANIMAL SKINNER Body Mass Index 37.76 10/14/2024 1:02 PM ANIMAL SKINNER Plan of Treatment Health Maintenance Due Date Last Done Comments Colon Cancer Screening-Colonoscopy 1955 Depression Screening 1953 Fall Risk Assessment 1955 Hepatitis C Screening 1955 Osteoporosis Screening-Bone Density Scan 1953 Hepatitis B Screening 1971 Zoster Vaccine (1 of 2) 2003 Breast Cancer Screening-Mammogram 04/29/2017 016, 06/04/2013 Well Visit 65+ 2018 Covid-19 Vaccine (7 2023-2 5 season) 2025 08/02/2024, 07/31/2022, 02/18/2022, Additional history exists Influenza Vaccine (#1) 2025 , 07/31/2022, 09/24/2021, Additional history exists DTaP/Tdap/Td Vaccine (2 - Td or Tdap) 09/25/2034 09/25/2024 Pneumococcal vaccine 65+ Completed 08/22/2022, 12/2019 Procedures Procedure Name Priority Date/Time Associated Diagnosis [...] be contacted. Rey Cabrera M.D. ab/:05/07/2016 10:33:03 Underwater Hunter: Sarah ONEIL (Lalito)(M), [facility] letter sent: Additional Imaging Reading [...] mammogram, 07/13/2014 mammogram, and 06/04/2013 mammogram - [facility]. BREAST TISSUE: There are scattered areas [...] 07/20/2014 mammogram,07/13/2014 mammogram, and 06/04/2013 mammogram - [facility]. BREAST TISSUE: There are scattered areas [...] be contacted. Rey Cabrera M.D. ab/:05/07/2016 10:33:03 Underwater Hunter: Sarah Kelsey)(M), [facility] letter sent: Additional Imaging Reading location: BI-RADS: 0 Additional Imaging Evaluation Needed [EOD] Jazmine BROWNE IMG MAMMO PROCEDURES Final Result from Last 3 Months or Most Recently Relevant to Health Maintenance Insurance UHC MEDICARE ADVANTAGE [facility] MEDIC[facility] Address: [address] [address] [place] [address] AETNA MEDICARE [facility] MEDICARE Care Teams Case Technician Relationship Specialty Start Date End Date Valeriano Cornell MD PCP - General Internal Medicine 11/21/20
--- OUTSIDE RECORDS SUMMARY | 2025-05-16 10:38 | XMS_ITS | Clinical Summary ---
Author Organization [facility] Address [address] [place] [address] Care Team Providers Care Phone Circuit Operator Name Role Phone Unavailable Primary Care [...] on file Legal Sex Female 9:50 AM NET MAKING SUPERVISOR Gender Identity Not on file Sexual Orientation Not on file Last Filed Vital Signs Vital Sign Reading Time Taken Comments Blood Pressure - - Pulse - - Temperature - - Respiratory Rate - - Oxygen Saturation - - Inhaled Oxygen Concentration - - Weight 99.8 kg (220 lb) 01/22/2024 9:45 AM CDT Height 162.6 cm (5' 4) 01/22/2024 9:45 AM CDT Body Mass Index [...] exists OSTEOPOROSIS SCREENING 2018 INFLUENZA VACCINE (#1) 2025 RSV VACCINE (60+ or ) (1 - 1-dose 75+ series) 2028 Insurance AETNA O [facility]
[2025-05-16 15:11] LABS: Hematocrit 40.5 % (37.0-47.0); Hemoglobin 13.3 g/dL (12.0-15.0); Immature Granulocyte Percent A 0.4 % (0-0.5); Lymphocytes Absolute Auto 3.51 K/mm3 (0.9-3.2); Mean Corpuscular HGB Conc 32.8 g/dl (32-36); Mean Corpuscular Hemoglobin 31.0 pg (26-34); Mean Corpuscular Volume 94.4 fl (80-100); Nucleated Red Blood Cells Absolute Auto 0.000 K/mm3 (0.0-0.012); Nucleated Red Blood Cells Perc 0.0 % (0.0-0.2); Platelet Count Result 228 k/mm3 (150-375); Red Blood Count 4.29 M/mm3 (4.2-5.4); White Blood Count 9.3 K/mm3 (4.5-10.0)
[2025-05-16 15:20] LABS: Alanine Aminotransferase 67 U/L (6-35); Albumin Level 4.4 g/dL (3.5-5.1); Alkaline Phosphatase 70 U/L (38-126); Anion Gap 7 mmol/L (4-12); Aspartate Amino Transferase 67 U/L (14-36); Bilirubin,Total 0.7 mg/dL (0.2-1.3); Blood Urea Nitrogen 10 mg/dL (7-17); Calcium 9.7 mg/dL (8.4-10.2); Carbon Dioxide 25 mmol/L (22-30); Chloride 102 mmol/L (98-107); Cholesterol 164 mg/dL (0-200); Estimated Glomerular Filt Rate > 60; Glucose 155 mg/dL (65-110); HDL Direct 58 mg/dL; Magnesium 1.9 mg/dL (1.6-2.3); Potassium 4.2 mmol/L (3.4-5.0); Sodium 134 mmol/L (137-145); Total Protein 7.4 g/dL (6.3-8.2); Triglycerides 171 mg/dL (<150)
[2025-05-16 15:44] LABS: Free T3 4.15 pg/mL (2.45-5.93); Free T4 Free Thyroxine 1.17 ng/dL (0.78-2.19)
[2025-05-16 15:49] LABS: Hemoglobin A1C 6.8 % (<5.7)
[2025-05-16 15:59] LABS: Thyroid Stimulating Hormone 1.610 uIU/mL (0.465-4.680)
== END 2025-05-16 10:16 | disposition home or self-care (01) ==
LOC: ANHGOSHLAB 10:16
PROVIDERS: PCP Internal Medicine; Visit Provider Internal Medicine
DX: I10 Essential (primary) hypertension (principal); E11.9 Type 2 diabetes mellitus without complications
CPT/HCPCS: 36415; 80053; 80061; 83036; 83735; 84439; 84443; 84481; 85025

== ENCOUNTER 2025-08-05 11:29 | Outpatient (CLI) | payer MEDICARE, SELFPAY ==
--- OUTSIDE RECORDS SUMMARY | 2025-08-05 11:44 | XMS_ITS | Clinical Summary ---
Author Organization [facility] Address [address] [place] [address] Care Team Providers Care Mechanical Maintenance Foreman Name Role Phone Tiago Weinberg MD Primary Care Provider Jelly Heart APRN-INSPECTOR OUTSIDE PRODUCTION Unavailable Unavailable Source Comments [facility],non-owned Affiliates and Associated Physician Practices is amultiple site organization consisting of ambulatory clinics and hospital sitesin [place], [place], [place] and [place]. This disclosure is being madepursuant to the Care Everywhere program and may not contain all information available regarding this patient. Last updated 18.[facility] Allergies No known active allergies Medications * [...] on file Legal Sex Female 4:14 PM BAG BLEACHER Gender Identity Not on file Sexual Orientation [...] of 2) 2003 MAMMOGRAM 07/13/2016 07/13/2014, 06/04/2013 DEPRESSION SCREENING 10/13/2024 MEDICARE AWV CALENDAR YEAR 2024 COVID-19 VACCINE (1 - 2023-2 5 season) 2025 INFLUENZA VACCINE (#1) 2025 Respiratory Syncytial Virus [...] hours with subsequent call made to [facility] to confirm receipt of report. Narrative 07/13/2014 [...] Subscriber ID:Not on file (Home) Address: [address] [place] [address] Payer ID:Not on file Group ID:Not on file Type:Self Pay Address: [place], [place] Care Teams Mechanical Maintenance Foreman Relationship Specialty Start Date End Date Tiago Weinberg MD [address] [address] PCP - General Internal Medicine 06/01/13 Jelly Heart APRN-INSPECTOR OUTSIDE PRODUCTION [address] [address] Nurse Practitioner 07/06/14
--- OUTSIDE RECORDS SUMMARY | 2025-08-05 11:44 | XMS_ITS | Clinical Summary ---
Author Organization [facility] [address] Address [address] [place] [address] Care Team Providers Care Morning Show Host Name Role Phone Valeriano Cornell MD Primary Care Provider [phone] Allergies No known active allergies Medications bacitracin [...] History Medical History Date Comments Anxiety Diabetes Migraine HL (hearing loss) Family History Medical [...] on file Legal Sex Female 2:02 AM SPECIAL POLICE Gender Identity Not on file Sexual Orientation Not on file Obstetrics History Last Filed Vital Signs Vital Sign Reading Time Taken Comments Blood Pressure 160/79 09/25/2024 10:26 PM SPECIAL POLICE Pulse 65 09/25/2024 10:26 PM SPECIAL POLICE Temperature 36.6 C (97.9 F) 09/25/2024 5:42 PM SPECIAL POLICE Respiratory Rate 16 09/25/2024 10:26 PM SPECIAL POLICE Oxygen Saturation 97% 09/25/2024 10:26 PM SPECIAL POLICE Inhaled Oxygen Concentration - - Weight 99.8 kg (220 lb) 10/14/2024 1:02 PM SPECIAL POLICE Height 162.6 cm (5' 4) 10/14/2024 1:02 PM SPECIAL POLICE Body Mass Index 37.76 10/14/2024 1:02 PM SPECIAL POLICE Plan of Treatment Health Maintenance Due Date Last Done Comments Colon Cancer Screening-Colonoscopy 1953 Depression Screening 1953 Fall Risk Assessment 1953 Hepatitis C Screening 1953 Osteoporosis Screening-Bone Density Scan 1953 Hepatitis B Screening 1971 Zoster Vaccine (1 of 2) 2003 Breast Cancer Screening-Mammogram 04/29/2017 016, 06/04/2013 Well Visit 65+ 2018 Covid-19 Vaccine (2023-2 5 season) 2025 08/02/2024, 07/31/2022, 02/18/2022, Additional [...] be contacted. Rey Cabrera M.D. ab/:05/07/2016 10:33:03 Digital Forensics Examiner: Sarah Kelsey)(Declan), [facility] letter sent: Additional Imaging Reading location: [...] 07/13/2014 mammogram, and 06/04/2013 mammogram - [facility]. BREAST [...] be contacted. Rey Cabrera M.D. ab/:05/07/2016 10:33:03 Digital Forensics Examiner: Sarah Kelsey)(M), [facility] letter sent: Additional Imaging Reading location: BI-RADS: 0 Additional Imaging Evaluation Needed [EOD] Jazmine BROWNE IMG MAMMO PROCEDURES Final Result from Last 3 Months or Most Recently Relevant to Health Maintenance Insurance [facility] MEDICARE ADVANTAGE [facility] MEDICARE [facility] MEDICARE Care Teams Morning Show Host Relationship Specialty Start Date End Date Valeriano Cornell MD PCP - General Internal Medicine 11/21/20
--- OUTSIDE RECORDS SUMMARY | 2025-08-05 11:46 | XMS_ITS | Data Portability ---
Author Organization [facility] Address [address] [place] [address] Care Team Providers Care Metal Filer Name Role Phone SANTOS CORNELL Primary Care Provider Unavailabl e Assessment Encounter Date Assessment Date Assessment LastModified by Organization Details LastModified Time 05/03/2024 05/03/2024 last blood work was reviewed continue current therapy sugar was up a little bit healthy lifestyle care instructions she will follow up in 4 months with full blood work [email or web address] Not available 05/15/2024 21:41:42 11/15/2024 11/15/2024 CBC CMP lipid A1 c colonoscop diabetic foot exam with Podiatry continue current therapy follow up in 6 months Not available 12/12/2024 14:30:47 05/16/2025 05/16/2025 CBC CMP lipid A1 c T3-T4 TSH magnesium. I spoke with Cardiology Dr. baez we will see her 8:00 a.m. this Friday for consultation if she gets worse she knows to go to emergency room hypertension amlodipine dyslipidemia atorvastatin anxiety lorazepam palpitations she has been using propranolol but she will see Cardiology diabetes metformin migraines sumatriptan we will try to get her mammogram scheduled she will see me back in 6 months. We will use meloxicam sparingly for joint pain cardiovascular GI renal liver side effects discussed [email or web address] Not available 05/16/2025 10:53:08 06/09/2025 06/09/2025 Cardiology recommended some Ozempic which I am fine with she can start that. We will stop the lorazepam we will start alprazolam 0.5 t.i.d. PRN. Zoloft 25 mg daily see me in 1 month [email or web address] Not available 06/11/2025 23:07:37 07/11/2025 07/11/2025 We will give her some Zofran to use for those days where she has some mild nausea after her Ozempic shot she will follow up with me in October with the comes in and it was clear that has she has problems in the meantime she can call and be re-evaluated sooner [email or web address] Not available 07/11/2025 22:44:46 Plan of Treatment Reminders Order Date Submit Date Provider Last Modified By Organization Details Last Modified Time Details Appointments ANY 15 2025 09:15A M Santos Cornell MD Not available Not available Not available Lab HbA1c (hemoglob in A1c), blood 2024 025 [facility] [address], [place], [address], 05/16/2025 23:05:46 CMP, serum or plasma 2024 025 [facility] [address], [place], [address], 05/16/2025 23:05:46 lipid panel, serum 2024 025 [facility] [address], [place], [address], 05/16/2025 23:05:46 CBC w/ auto diff [address], [place], [address], 05/22/2025 22:56:10 T3, free, serum or plasma 2024 025 [facility] [address], [place], [address], 05/17/2025 09:56:53 TSH, serum or plasma 2024 025 [facility] [address], [place], [address], 05/17/2025 09:56:53 T4, free, serum 2024 025 [facility], [address] [facility] [address], [place], [address], 05/17/2025 09:56:53 magnesium , serum or plasma 2024 025 [facility], [address] [facility] [address], [place], [address], 05/17/2025 09:56:54 HbA1c (hemoglob in A1c), blood 2024 025 [facility], [address], [place], [address], 11/18/2024 11:36:55 CBC w/ auto diff 2024 025 [facility], [address], [place], [address], 12/06/2024 10:42:22 CMP, serum or plasma 2024 025 [facility], [address], [place], [address], 11/16/2024 13:24:33 lipid panel, serum 2024 025 [facility], [address], [place], [address], 11/18/2024 11:36:55 Referral cardiolog ist referral 2024 025 YARELIS Love MD, [address], [address], [place], [address], 07/05/2025 10:37:44 podiatris t referral 2024 025 [facility] David Iniguez Jr DPM, [address], [address], [place], [address], 01/13/2025 10:37:58 Procedures colonosco py screening (PROC) 2024 025 [facility], [address], [address], [place], [address], 02/04/2025 11:20:46 Surgeries None recorded. Imaging None recorded. Medication Orders meloxicam 15 mg tablet 2024 025 [id number] [address], [place], [place], [id number], 05/16/2025 16:59:36 Patient TargetsNo targets recorded. Patient Instructions Encounter Date Encounter Id Patient Instructions Last Modified By Organization Details Last Modified Time 05/03/2024 [id number] A healthy lifestyle: care instructions [email or web address] Not available 05/15/2024 21:41:57 11/15/2024 [id number] A healthy lifestyle: care instructions [email or web address] Not available 11/15/2024 12:06:22 05/16/2025 [id number] A healthy lifestyle: care instructions [email or web address] Not available 05/16/2025 16:59:36 06/09/2025 [id number] A healthy lifestyle: care instructions [email or web address] Not available 06/09/2025 15:10:43 07/11/2025 [id number] A healthy lifestyle: care instructions [email or web address] Not available 07/11/2025 17:19:11 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 [facility] [address], [place], [address], 09/27/2024 10:20:50 09/25/20 24 09/25/2024 CT, face, w/o contr ast No observ ation record ed. [facility] [address], [place], [address], 09/27/2024 10:23:43 06/06/20 25 05/23/2025 christ r monit or No observ ation record ed. [address] [facility] [address], [place], [address], 06/11/2025 23:28:37 Result Notes None recorded. Problems Name Problem SNOMED Code Status Onset Date Resolution Date Notes Provider Name and Address Organization Details Recorded Time Essential hypertension 84779751 Active 2023 Kirsten Jacobson [place] null, [place] - [facility] 4 12:13:46 Hyperlipidemia 93951262 Active 2023 Kirsten Jacobson [place], [place] [facility] 4 12:13:47 Type 2 diabetes mellitus 87094220 Active 2023 Kirsten Jacobson [place], [place] [facility] 4 12:13:48 Anxiety 02860354 Active 2023 Kirsten Jacobson [place], [place] [facility] 5 11:42:14 Generalized osteoarthritis 425836556 Active 2024 Kirsten Jacobson [place], [place] [facility] 5 10:53:20 Palpitations 03788611 Active 2024 Kirsten Jacobson [place], [place] [facility] 5 10:53:22 Problem Notes Documentation Provider Name and Address Organization Details Recorded Time Apparel Fashion Designer Consult Note : This document (1 of 1) was received from [email or web address]. [facility] [employer] on 07/04/2025 through Direct Message along with the following message body content: Patient Name: KRISTINE GARCÍA. Patient : 1955. Patient . Darya Bass [facility], [facility] 07/08/2025 13:13:58 Procedures Surgical History Date Name Laterality Status Provider Name and Address Organization Details Recorded Time Cholecystectomy completed Nila Hernandez MA [facility] 01/06/2024 11:25:35 Breast Surgery completed Nila Hernandez MA [facility] 01/06/2024 11:25:44 Imaging Results None recorded. Procedure Notes None recorded. Medical Equipment None Reported. Allergies No known drug allergies Medications Name Sig Start Date Stop Date Status Note LastModified by Organization Details LastModified Time atorvastati n 10 mg tablet TAKE 1 TABLET BY MOUTH EVERY DAY active Not Available Not Available No t Available azithromyci n 250 mg tablet 01/04 completed Not Available Not Available Not Available sumatriptan 100 mg tablet TAKE ONE TABLET BY MOUTH EVERY DAY active Not Available Not Available No t Available meloxicam 15 mg tablet TAKE 1 TABLET BY MOUTH EVERY DAY NEEDED FOR PAIN active Not Available Not Available No t Available ondansetron HCl 4 mg tablet TAKE 1 TABLET BY MOUTH EVERY MORNING NEEDED FOR NAUSEA active Not Available Not Available No t Available propranolol ER 60 mg capsule,24 hr,extended release TAKE 1 CAPSULE BY MOUTH EVERY DAY active Not Available Not Available No t Available amlodipine 2.5 mg tablet TAKE 1 TABLET BY MOUTH EVERY DAY active Not Available Not Available No t Available bacitracin zinc 500 unit/gram topical ointment APPLY TOPICALLY TWICE DAILY 11/15 completed Not Available Not Available Not Available ciprofloxac in 500 mg tablet TAKE 1 TABLET BY MOUTH TWICE DAILY 11/15 completed Not Available Not Available Not Available alprazolam 0.5 mg tablet TAKE 1 TABLET BY MOUTH THREE TIMES DAILY DIRECTED active Not Available Not Available No t Available naproxen sodium 550 mg tablet TAKE 1 TABLET BY MOUTH EVERY 12 HOURS NEEDED 01/05 completed Not Available Not Available Not Available losartan 25 mg tablet TAKE 1 TABLET BY MOUTH EVERY DAY active Not Available Not Available No t Available sertraline 25 mg tablet TAKE 1 TABLET BY MOUTH EVERY DAY 2024 active Not Available Not Available Not Avai lable codeine 10 mg-guaifene sin 100 mg/5 mL oral liquid TAKE 5 ML BY MOUTH EVERY 6 HOURS NEEDED. MAY TAKE 5-10 MLS DIRECTED 01/04 completed Not Available Not Available Not Available propranolol ER 120 mg capsule,24 hr,extended release TAKE 1 CAPSULE BY MOUTH EVERY DAY active Not Available Not Available No t Available lorazepam 1 mg tablet TAKE 1 TABLET BY MOUTH THREE TIMES DAILY NEEDED active Not Available Not Available No t Available fluticasone propionate 50 mcg/actuati on nasal spray,suspe nsion INSTILL 2 SPRAYS INTRANSAL LY INTO BOTH NOSTRILS NEEDED FOR CONGESTIO N 11/15 completed Not Available Not Available Not Available metformin ER 500 mg tablet,exte nded release 24 hr TAKE 2 TABLETS BY MOUTH AT BEDTIME active Not Available Not Available No t Available oxycodone 5 mg tablet TAKE 1 TABLET BY MOUTH EVERY 4 HOURS NEEDED FOR PAIN 11/15 completed Not Available Not Available Not Available Ozempic 0.25 mg or 0.5 mg (2 mg/3 mL) subcutaneou s pen injector INJECT 0.5MG UNDER THE SKIN ONCE A WEEK ON THE SAME DAY OF EACH WEEK active Not Available Not Available No t Available Vitals Date Recorded Body height Body mass index (BMI) Body weight Heart rate Oxygen saturation Oxygen saturation in Arterial blood by Pulse oximetry Systolic And Diastolic Provider Name and Address Organization Details Last Updated DateTime 5 162.56 cm 38.1 kg/m2 815817. 15 g 62 /min 97 % 97 % 128/84 mm[Hg] Morelia Diaz MA [facility] 5 11:27:39 Date Recorded Body height Body mass index (BMI) Body weight Provider Name and Address Organization Details Last Updated DateTime 05/03/2024 162.56 cm 37.8 kg/m2 20014.75 g Dee Dee Rodriguez MA [facility] 05/03/2024 10:27:19 Date Recorded Body height Body mass index (BMI) Body weight Heart rate Oxygen saturation Oxygen saturation in Arterial blood by Pulse oximetry Systolic And Diastolic Provider Name and Address Organization Details Last Updated DateTime 5 162.56 cm 37.6 kg/m2 61510.4 5 g 67 /min 97 % 97 % 122/68 mm[Hg] Mariella Ballesteros MA [facility] 5 10:19:55 Date Recorded Body height Body mass index (BMI) Body weight Heart rate Oxygen saturation Oxygen saturation in Arterial blood by Pulse oximetry Systolic And Diastolic Provider Name and Address Organization Details Last Updated DateTime 5 162.56 cm 36.1 kg/m2 53900.8 3 g 70 /min 97 % 97 % 122/84 mm[Hg] Morelia Diaz MA [facility] 5 10:28:18 Date Recorded Body height Body mass index (BMI) Body weight Heart rate Oxygen saturation Oxygen saturation in Arterial blood by Pulse oximetry Systolic And Diastolic Provider Name and Address Organization Details Last Updated DateTime 5 162.56 cm 35.8 kg/m2 31655.7 3 g 60 /min 96 % 96 % 128/68 mm[Hg] Mariella Ballesteros MA [facility] 5 11:17:17 Social History Question Answer Notes LastModified by Organizat ion Details LastModified Time Tobacco Smoking Status Never Smoker Nila Hernandez MA [facility], [facility] 01/06/2024 11:24:38 Do You Have An Advance Directive? Yes Information n ot available 01/06/2024 Are You Blind Or Do [...] Date Of Your Most Recent Tobacco Screening? 07/11/2025 [email or web address] Information not available 07/11/2025 What Is Your Relationship Status? Information not available 01/06/2024 Do You Use Your Seat Belt Or Car Seat Routinely? Yes Information not available 01/06/2024 Do You Have Smoke And Carbon Monoxide Detectors In Your Home? Yes Information not available 01/06/2024 Do You Use Sunscreen Routinely? Yes Information not available 01/06/2024 Has Tobacco Cessation Counseling Been Provided? No Information not available 01/06/2024 Sex: Female Functional Status Question Answer Note LastModified by Organizat ion Details LastModified Time Do you use any illicit or recreational drugs? No Information not available 01/06/2024 Do you or have you ever used any other forms of tobacco or nicotine? No Information not available 01/06/2024 What is your level of alcohol consumption? None Information not available 01/06/2024 Are you able to care for yourself independently? Yes Information not available 01/06/2024 What is your exercise level? None Information not available 01/06/2024 Mental Status Question Answer Note LastModified by Organization D etails LastModified Time Do you feel stressed (tense, restless, nervous, or anxious, or unable to sleep at night)? [id number] Information not available 01/06/2024 Family History Relationship Description Onset Age of [...] Skin Problems N Anemia N Heart Attack (CT) N Anxiety Disorder Y Diabetes Y Muscle, [...] split virus, quadrivalent, preservative 8 completed [facility] [place], [place] [facility] 11/12/2024 11:58:43 Influenza, high-dose, quadrivalent, PF 2 completed [facility] [place] [facility] 11/12/2024 11:58:44 Influenza, high-dose, quadrivalent, PF 0 completed [facility] [place] [facility] 11/12/2024 11:58:44 Influenza, high-dose, quadrivalent, PF 1 completed [facility] [place] [facility] 11/12/2024 11:58:44 COVID-19, mRNA, LNP-S, PF, 30 mcg/0.3 mL dose 1 completed [facility] [place] [facility] 11/12/2024 11:58:44 COVID-19, mRNA, LNP-S, PF, 30 mcg/0.3 mL dose 1 completed [facility] [place] [facility] 11/12/2024 11:58:44 COVID-19, mRNA, LNP-S, PF, 30 mcg/0.3 mL dose 1 completed [facility] [place] [facility] 11/12/2024 11:58:44 COVID-19, mRNA, LNP-S, PF, 30 mcg/0.3 mL dose, ela-sucrose 2 completed [facility] [place] [facility] 11/12/2024 11:58:44 COVID-19, mRNA, LNP-S, bivalent, PF, 30 mcg/0.3 mL dose 2 completed [facility] [place], [place] [facility] 11/12/2024 11:58:44 pneumococcal polysaccharide PPV23 0 completed [facility] [place] [facility] 11/12/2024 11:58:44 Pneumococcal conjugate PCV 13 2 completed [facility] [place] [facility] 11/12/2024 11:58:44 Influenza, high-dose, trivalent, PF 0 completed [facility] [place] [facility] 11/12/2024 11:58:44 Influenza, split virus, trivalent, PF 8 completed [facility] [place] [facility] 11/12/2024 11:58:44 Influenza, split virus, trivalent, PF 6 completed [facility] [place] [facility] 11/12/2024 11:58:44 Influenza, split virus, quadrivalent, PF 8 completed [facility] [place] [facility] 11/12/2024 11:58:44 COVID-19, mRNA, LNP-S, PF, ela-sucrose, 30 mcg/0.3 mL 4 completed Not Available [facility] 07/11/2025 11:08:54 Influenza, high-dose, trivalent, PF 4 completed Not Available [facility] 07/11/2025 11:08:54 Tdap 4 completed Not Available [facility] 07/11/2025 11:08:54 Past Encounters Encounter ID Performer Location Encounter Start Date Encounter Closed Date Diagnosis/Indication Diagnosis SNOMED-CT Code Diagnosis ICD10 Code Diagnosis IMO Codes Diagnosis Note [id number] Santos Cornell MD [facility] (Adult Med) [address] [place] [address] 01/06/2024 11:10:02 01/06/2024 12:14:23 Essential hypertension 43944690 I10 Hyperlipidemia 92399023 E78.5 Type 2 lele betes mellitus 23008224 E11.9 Anxiety 07403623 F41.9 [id number] Santos Cornell MD [facility] [place] [address] [place] [address] 05/03/2024 10:23:00 05/03/2024 11:53:55 Obesity 511435657 E66.8 Hyperlipidemia 13033407 E78.5 Essential hypertension 78723145 I10 Anxiety 68234397 F41.9 Type 2 lele betes mellitus 52812835 E11.9 [id number] Santos Cornell MD [facility] [place] [address] [place] [address] 11/15/2024 10:55:09 11/15/2024 12:23:16 Body mass index 30+ - obesity 339633558 Z68.38 Obesity 669764994 E66.9 Essential hypertension 72653545 I10 Hyperlipidemia 06730270 E78.5 Type 2 lele betes mellitus 29198018 E11.9 Screening for malignant neoplasm of colon 557693668 Z12.11 Anxiety 94969748 F41.9 [id number] Santos Cornell MD [facility] Where - [place] [address] [place] [address] 05/16/2025 09:59:17 05/16/2025 10:52:42 Obese class II 7939013028 91948 E66.812 E66.3 4816878191 BMI 37.6 Essential hypertension 87827898 I10 Type 2 lele betes mellitus 84454427 E11.9 Hyperlipidemia 23314665 E78.5 Palpitations 98528948 R0 0.2 15209 Generalize d osteoarthritis 707632853 M15.9 [id number] Santos Cornell MD [facility] - [place] [address] [place] [address] 06/09/2025 10:15:44 06/09/2025 11:43:55 Body mass index 30+ - obesity 331786811 Z68.36 [id number] Obese class II 820151417 1 21718 E66.812 E66.3 4720226911 BMI 37.6 Essential hypertension 98402167 I10 Palpitations 15370870 R0 0.2 23901 Anxiety 07341538 F41.9 [id number] Santos Cornell MD [facility] [address] [place] [address] 07/11/2025 11:07:58 07/11/2025 12:29:25 Obese class II 0578823925 72394 E66.812 E66.3 4342263591 BMI 35.8 Anxiety 30185446 F41.9 11559 Health Concerns Section Related Observation LastModified by Organization Detai ls LastModified Time None Recorded Concern Status LastModified by Organization Details LastModified Time None Recorded Advance Directives Directive Y: Payers Insurance Date Sequence Insurance Name Policy Number Policy Solomon Covered Member ID Solomon Member ID Guarantor Name 07/08/2025 1 [employer] (MEDICARE REPLACEMENT/ ADVANTAGE - PPO) [id number] Kristine García [id number] Kristine García 07/08/2025 2 [place] - R[place] - FQHC Kristine García [id number] Kristine García Notes Date Note Type Note Provider Name and Address Organization Details Recorded Time 05/03/2024 text/html Hypertension no headache no dizziness rhinitis stable on fluticasone anxiety doing well on lorazepam diabetes no polyphagia polydipsia Santos Cornell MD Attn: [address] [place], [address], [facility] 05/15/2024 21:41:59 11/15/2024 text/html Hypertension no headache no dizziness rhinitis stable on fluticasone anxiety doing well on lorazepam diabetes no polyphagia polydipsia still struggling with her knee issues she did have an emergency department visit for a fall in September of 2024 that is all healed up Santos Cornell MD Attn: [address] [facility], [place], [address], [facility] 12/12/2024 14:33:04 05/16/2025 text/html Interval history she had colonoscopy a few polyps. Hypertension blood pressure has been controlled no dizziness atorvastatin for her dyslipidemia trying to follow a low-fat diet she has been having palpitations and just about a daily basis they are starting to make her a little bit nervous but she is not dizzy or feeling like she is going to pass out occasionally she may feel a pressure sensation in her chest. She took meloxicam for trigger thumb and it helped all her joints Santos Cornell MD Attn: [address] [place], [address], [facility] 06/13/2025 16:18:17 06/09/2025 text/html She is in with her daughter today she is just not doing well lots of anxiety she did see the chemical packager who felt that most of her symptoms with the palpitations with anxiety not a whole lot of PVCs the burden was around 1% I am told. No SI or HI but just a lot of anxiety trouble concentrating at times and just anxious Santos Cornell MD Attn: [address]ing[address] [place], [address], [facility] 06/11/2025 23:07:53 07/11/2025 text/html Still with some palpitations working with Cardiology she is also starting some therapy paucity of use of alprazolam she is taking the sertraline side effects Satnos Cornell MD Attn: Accounting[address] [place], [address], [facility] 07/11/2025 22:45:19 OBGyn Episode No OBEpisode recorded.
[2025-08-05 12:59] LABS: Hematocrit 40.9 % (37.0-47.0); Hemoglobin 14.2 g/dL (12.0-15.0); Immature Granulocyte Percent A 0.3 % (0-0.5); Lymphocytes Absolute Auto 3.97 K/mm3 (0.9-3.2); Mean Corpuscular HGB Conc 34.7 g/dl (32-36); Mean Corpuscular Hemoglobin 31.6 pg (26-34); Mean Corpuscular Volume 90.9 fl (80-100); Nucleated Red Blood Cells Absolute Auto 0.000 K/mm3 (0.0-0.012); Nucleated Red Blood Cells Perc 0.0 % (0.0-0.2); Platelet Count Result 228 k/mm3 (150-375); Red Blood Count 4.50 M/mm3 (4.2-5.4); White Blood Count 9.7 K/mm3 (4.5-10.0)
[2025-08-05 13:09] LABS: Alanine Aminotransferase 42 U/L (6-35); Albumin Level 4.4 g/dL (3.5-5.1); Alkaline Phosphatase 62 U/L (38-126); Anion Gap 12 mmol/L (4-12); Aspartate Amino Transferase 36 U/L (14-36); Bilirubin,Total 1.1 mg/dL (0.2-1.3); Blood Urea Nitrogen 6 mg/dL (7-17); Calcium 10.1 mg/dL (8.4-10.2); Carbon Dioxide 25 mmol/L (22-30); Chloride 100 mmol/L (98-107); Cholesterol 132 mg/dL (0-200); Estimated Glomerular Filt Rate > 60; Glucose 137 mg/dL (65-110); HDL Direct 55 mg/dL; Magnesium 1.4 mg/dL (1.6-2.3); Potassium 3.8 mmol/L (3.4-5.0); Sodium 137 mmol/L (137-145); Total Protein 7.0 g/dL (6.3-8.2); Triglycerides 198 mg/dL (<150)
[2025-08-05 13:26] LABS: Free T3 5.07 pg/mL (2.45-5.93); Free T4 Free Thyroxine 1.43 ng/dL (0.78-2.19)
[2025-08-05 13:44] LABS: Thyroid Stimulating Hormone 1.680 uIU/mL (0.465-4.680); Total Triiodothyronine (T3) 1.66 NG/ML (0.82-1.58)
[2025-08-05 14:09] LABS: Hemoglobin A1C 5.8 % (<5.7)
== END 2025-08-05 11:30 | disposition home or self-care (01) ==
LOC: ANHGOSHLAB 11:31
PROVIDERS: PCP Internal Medicine
DX: I34.0 Nonrheumatic mitral (valve) insufficiency (principal); E11.9 Type 2 diabetes mellitus without complications; E66.9 Obesity, unspecified; E78.5 Hyperlipidemia, unspecified; I10 Essential (primary) hypertension
CPT/HCPCS: 36415; 80053; 80061; 83036; 83735; 84436; 84439; 84443; 84480; 84481; 85025